=== PATIENT | male | born 1935 | race Caucasian/White ===

== ENCOUNTER → 2016-04-22 | Outpatient (CLI) | payer MEDICARE, OTHER ==
[~2016-04-22] MED LIST: ALBU0.08 NEB; ALBUAER3 INH; ALPR.25 PO; ATOR1TAB18 PO; AZIT500T2 PO; DILT-64 PO; DOCU1CAP39 PO; FERR1TAB36 PO; HYDR-3133 PO; HYDR50TA94 PO; INFLINJ IM; LEVO100T5 PO; LISI10TA3 PO; METF850T PO; NEBUKIT5; NIAC500 PO; NIAC500T18 PO; NITR0.4S SL; OMEP40CA2 PO; PAXI10TA2 PO; TRAM50TA PO; XARE20TA PO; ZOLO100T PO; ZOLO50TA PO
[2016-04-22 13:22] LABS: HDL CHOLESTEROL 47.5 MG/DL (40.0-60.0)
== END ==
LOC: PLAB 09:57
PROVIDERS: ATTEND Family Medicine
DX: E78.5 Hyperlipidemia, unspecified (principal)
CPT/HCPCS: 36415; 80061

== ENCOUNTER 2017-07-08 17:47 | Inpatient (IN) | payer MEDICARE, OTHER ==
[~2017-07-08] VITALS: Ht 167.6 cm; Wt 72.2 kg
[~2017-07-08 17:47] MED LIST changes: -ALPR.25 PO; +ASPI-516 CHEW; -ATOR1TAB18 PO; +ATOR80TA45 PO; -AZIT500T2 PO; -DILT-64 PO; +DILT240C44 PO; -DOCU1CAP39 PO; -FERR1TAB36 PO; +FERR325T18 PO; -HYDR50TA94 PO; -NIAC500T18 PO; -PAXI10TA2 PO; +PAXI10TA8 PO; -ZOLO100T PO; -ZOLO50TA PO
[2017-07-08 18:46] VITALS: BP 195/87; PULSE 79; RESP 18; TEMP 97.6; O2SAT 97
[2017-07-08 19:15] VITALS: BP_SYST 123; BP_SYST 175; BP_DIAS 80; BP_DIAS 85; PULSE 75; PULSE 78; RESP 20; O2SAT 100; O2SAT 97
--- NOTE | 2017-07-08 19:23 | PD ---
HPI Chief Complaint: Altered Mental Status Time Seen by Provider: 19:05 Travel History International Travel<30 days: No Contact w/Intl Traveler<30days: No Traveled to known affect area: No History of Present Illness HPI The patient is a 81-year-old male who presents to the emergency department with his daughter for altered mental status. The patient's symptoms started last weekend, they noticed on Thursday the patient had one episode of urinary incontinence. They stated the patient's mental status started to fluctuate earlier today, he has been making more jokes than normal and appears to have visual hallucinations. He was telling his daughter that there was a boy that was hiding in a cabinet within the house, apparently he threatened to call the police if the boy did not leave. The patient does have a history of coronary artery disease, previous CABG, but no history of dementia. The patient is currently taking Xarelto for history of atrial fibrillation. They deny any visible trauma to the patient's head. The patient is asymptomatic and denies any current complaints. However, the daughter and the daughter's girlfriend states that the patient has had a change in mental status today. The patient's primary physician is Dr. Fan. The patient's tool technician is Dr. Das. [facility] Past Medical History Asthma: No Anxiety: Yes Cancer: Yes (ESOPHAGEAL 6 YEARS AGO) Cardiovascular Problems: Yes (QUAD BYPASSL; [place]) Chemotherapy: Yes (PAST) COPD: No Coronary Artery Disease: Yes Diabetes: Yes Diminished Hearing: Yes (BILAT HEARING AIDS) GERD: Yes Hypertension: Yes Psychiatric: No Respiratory: Yes (Laryngeal cancer) Radiation Therapy: Yes (2003) Past Surgical History Appendectomy: Yes Cardiac Surgery: Yes (Quadruple bypass) Coronary Artery Bypass Graft: Yes (4 VESSEL BYPASS 1997) Social History Alcohol Use: No Tobacco Use: Yes ( 1 PPD) Substance Use: No Allergies-Medications (Allergen,Severity, Reaction): Coded Allergies: No Known Allergies (Verified Adverse Reaction, Unknown, 07/08/17) Reported Meds & Prescriptions Reported Meds & Active Scripts Active Hydroxyzine HCl 25 Mg Tab 25 Mg PO HS Niaspan (Niacin) 500 Mg Tab 1,500 Mg PO HS Xarelto (Rivaroxaban) 20 Mg Tab 1 Mg PO DAILY Tramadol (Tramadol HCl) 50 Mg Tab 50 Mg PO Q4H PRN Levothyroxine (Levothyroxine Sodium) 100 Mcg Tab 100 Mcg PO DAILY Lisinopril 10 Mg Tab 10 Mg PO DAILY Metformin (Metformin HCl) 850 Mg Tab 850 Mg PO DAILY With a meal Omeprazole 40 Mg Cap 40 Mg PO DAILY Atorvastatin (Atorvastatin Calcium) 80 Mg Tab 1 Mg PO HS Paxil (Paroxetine HCl) 10 Mg Tab 10 Mg PO DAILY Diltiazem CD 24 HR 240 Mg Caper 240 Mg PO DAILY Nitrostat SL (Nitroglycerin) 0.4 Mg Subl 0.4 Mg SL DIRECTED PRN Reported Allergy (Loratadine) 10 Mg Tab 10 Mg PO DAILY Isosorbide Mononitrate ER (Isosorbide Mononitrate) 30 Mg Benja 30 Mg PO DAILY Review of Systems Except as stated in HPI: all other systems reviewed are Neg General / Constitutional: No: Fever Cardiovascular: No: Chest Pain or Discomfort Respiratory: No: Shortness of Breath Gastrointestinal: No: Nausea, Vomiting, Abdominal Pain Genitourinary: Positive: Incontinence, No: Dysuria Neurologic: Positive: Change in Mentation, No: Slurred Speech Physical Exam Narrative GENERAL: Awake, alert, pleasant 81-year-old male who appears his stated age and is in no acute respiratory distress. SKIN: Focused skin assessment warm/dry. HEAD: Atraumatic. Normocephalic. EYES: Pupils equal and round. No scleral icterus. No injection or drainage. ENT: No nasal bleeding or discharge. Slightly dry mucous membranes. NECK: Trachea midline. No JVD. CARDIOVASCULAR: Irregularly irregular. Heart rate in the 80s. Well-healed sternal scar. RESPIRATORY: No accessory muscle use. Clear to auscultation. Breath sounds equal bilaterally. GASTROINTESTINAL: Abdomen soft, non-tender, nondistended. Well-healed midline scar. MUSCULOSKELETAL: No obvious deformities. No clubbing. No cyanosis. No edema. NEUROLOGICAL: Awake and alert. No obvious cranial nerve deficits. Motor grossly within normal limits. Normal speech. Patient is oriented to month, did have difficulty with the year. He is oriented to name and daughter. Nonfocal. No drift of the upper or lower extremities. Follows simple commands. PSYCHIATRIC: Appropriate mood and affect; insight and judgment normal. Pleasant and joking in conversation. Data Data Last Documented VS Vital Signs Date Time Temp Pulse Resp B/P (MAP) Pulse Ox O2 Delivery O2 Flow Rate FiO2 07/08/17 19:52 75 20 97 07/08/17 19:15 123/85 (98) 07/08/17 18:46 97.6 Orders Orders Electrocardiogram (07/08/17 19:18) Complete Blood Count With Diff (07/08/17 19:18) Comprehensive Metabolic Panel (07/08/17 19:18) Creatine Kinase (Cpk) (07/08/17 19:18) Thyroid Stimulating Hormone (07/08/17 19:18) Urinalysis - C+S If Indicated (07/08/17 19:18) Ct Brain W/O Iv Contrast(Rout) (07/08/17 19:18) Blood Glucose (07/08/17:18) Ecg Monitoring (07/08/17:18) Iv Access Insert/Monitor (07/08/17:18) Oximetry (07/08/17 19:18) Sodium Chloride 0.9% Flush (Ns Flush) (07/08/17 19:30) Sodium Chlor 0.9% 250 Ml Inj (Ns 250 Ml (07/08/17 19:30) Risperidone (Risperdal) (07/08/17 21:30) Admit Order (Ed Use Only) (07/08/17 21:32) Labs Laboratory Tests Test 07/08/17 19:20 White Blood Count 11.2 TH/MM3 Red Blood Count 4.44 MIL/MM3 Hemoglobin 13.4 GM/DL Hematocrit 38.9 % Mean Corpuscular Volume 87.6 FL Mean Corpuscular Hemoglobin 30.1 PG Mean Corpuscular Hemoglobin Concent 34.3 % Red Cell Distribution Width 13.6 % Platelet Count 314 TH/MM3 Mean Platelet Volume 6.9 FL Neutrophils (%) (Auto) 74.6 % Lymphocytes (%) (Auto) 15.0 % Monocytes (%) (Auto) 7.7 % Eosinophils (%) (Auto) 1.4 % Basophils (%) (Auto) 1.3 % Neutrophils # (Auto) 8.3 TH/MM3 Lymphocytes # (Auto) 1.7 TH/MM3 Monocytes # (Auto) 0.9 TH/MM3 Eosinophils # (Auto) 0.2 TH/MM3 Basophils # (Auto) 0.1 TH/MM3 CBC Comment DIFF FINAL Differential Comment Urine Color YELLOW Urine Turbidity CLEAR Urine pH 5.5 Urine Specific [place] 1.020 Urine Protein NEG mg/dL Urine Glucose (UA) 100 mg/dL Urine Ketones NEG mg/dL Urine Occult Blood TRACE Urine Nitrite NEG Urine Bilirubin NEG Urine Urobilinogen 0.2 MG/DL Urine Leukocyte Esterase NEG Urine RBC 0-3 /hpf Urine WBC 0-2 /hpf Urine Squamous Epithelial Cells 0-5 /hpf Urine Bacteria NONE /hpf Microscopic Urinalysis Comment CULT NOT INDICATED Blood Urea Nitrogen 10 MG/DL Creatinine 1.10 MG/DL Random Glucose 145 MG/DL Total Protein 8.1 GM/DL Albumin 3.9 GM/DL Calcium Level 8.7 MG/DL Alkaline Phosphatase 107 U/L Aspartate Amino Transf (AST/SGOT) 14 U/L Alanine Aminotransferase (ALT/SGPT) 14 U/L Total Bilirubin 0.3 MG/DL Sodium Level 133 MEQ/L Potassium Level 3.9 MEQ/L Chloride Level 100 MEQ/L Carbon Dioxide Level 25.4 MEQ/L Anion Gap 8 MEQ/L Estimat Glomerular Filtration Rate 64 ML/MIN Total Creatine Kinase 82 U/L Thyroid Stimulating Hormone 3rd Gen 0.694 uIU/ML MDM Medical Decision Making Medical Screen Exam Complete: Yes Emergency Medical Condition: Yes Medical Record Reviewed: Yes Interpretation(s) EKG reveals normal sinus rhythm with a rate of 76. Right bundle branch block. Nonspecific T-wave changes. Laboratory Tests Test 07/08/17 19:20 White Blood Count 11.2 TH/MM3 Red Blood Count 4.44 MIL/MM3 Hemoglobin 13.4 GM/DL Hematocrit 38.9 % Mean Corpuscular Volume 87.6 FL Mean Corpuscular Hemoglobin 30.1 PG Mean Corpuscular Hemoglobin Concent 34.3 % Red Cell Distribution Width 13.6 % Platelet Count 314 TH/MM3 Mean Platelet Volume 6.9 FL Neutrophils (%) (Auto) 74.6 % Lymphocytes (%) (Auto) 15.0 % Monocytes (%) (Auto) 7.7 % Eosinophils (%) (Auto) 1.4 % Basophils (%) (Auto) 1.3 % Neutrophils # (Auto) 8.3 TH/MM3 Lymphocytes # (Auto) 1.7 TH/MM3 Monocytes # (Auto) 0.9 TH/MM3 Eosinophils # (Auto) 0.2 TH/MM3 Basophils # (Auto) 0.1 TH/MM3 CBC Comment DIFF FINAL Differential Comment Urine Color YELLOW Urine Turbidity CLEAR Urine pH 5.5 Urine Specific [place] 1.020 Urine Protein NEG mg/dL Urine Glucose (UA) 100 mg/dL Urine Ketones NEG mg/dL Urine Occult Blood TRACE Urine Nitrite NEG Urine Bilirubin NEG Urine Urobilinogen 0.2 MG/DL Urine Leukocyte Esterase NEG Urine RBC 0-3 /hpf Urine WBC 0-2 /hpf Urine Squamous Epithelial Cells 0-5 /hpf Urine Bacteria NONE /hpf Microscopic Urinalysis Comment CULT NOT INDICATED Blood Urea Nitrogen 10 MG/DL Creatinine 1.10 MG/DL Random Glucose 145 MG/DL Total Protein 8.1 GM/DL Albumin 3.9 GM/DL Calcium Level 8.7 MG/DL Alkaline Phosphatase 107 U/L Aspartate Amino Transf (AST/SGOT) 14 U/L Alanine Aminotransferase (ALT/SGPT) 14 U/L Total Bilirubin 0.3 MG/DL Sodium Level 133 MEQ/L Potassium Level 3.9 MEQ/L Chloride Level 100 MEQ/L Carbon Dioxide Level 25.4 MEQ/L Anion Gap 8 MEQ/L Estimat Glomerular Filtration Rate 64 ML/MIN Total Creatine Kinase 82 U/L Thyroid Stimulating Hormone 3rd Gen 0.694 uIU/ML Last Impressions Head CT 07/08/171917 Signed Impressions: Service Date/Time: Saturday, July 08, 2017 20:18 - CONCLUSION: 1. Possible subacute or old small left frontal lobe infarct. White matter ischemic changes. Remote lacunar infarct right cerebellum. Lowell Parrish MD Differential Diagnosis Differential diagnosis includes delirium, UTI, hyponatremia, dehydration, subdural hemorrhage, CVA, TIA, pneumonia, medication side effect, normal pressure hydrocephalus. Narrative Course IV was established, labs are drawn and sent, and the patient was placed on cardiac telemetry monitoring and continuous pulse oximetry monitoring. EKG was ordered and interpreted. CT of the brain was obtained to evaluate for possible subdural hemorrhage. UA was sent to lab. Accu-Chek at bedside was in the 140s. The patient's UA is unremarkable. Sodium level is normal. TSH is normal. CT of the brain reveals subacute frontal lobe stroke, may explain the patient's recent behavior changes and possible hallucinations/delusions. I had a discussion with the family at bedside, the patient will be admitted to the on- call medical service. The patient will be provided Risperdal as he is slightly agitated in the emergency department. Patient may benefit from neurology evaluation. Physician Communication Physician Communication The on-call medical service was paged for admission. I discussed the patient with Dr. [place] who agrees with admission. Diagnosis Primary Impression: CVA (cerebral vascular accident) Qualified Codes: I63.9 - Cerebral infarction, unspecified Condition: Stable Sanjeev Branch MD Jul 08, 2017 19:23
[2017-07-08] MEDS ORDERED: SODIUM CHLOR 0.9% 250 ML INJ 250 ML IV ONE (19:30)
[2017-07-08] MEDS ORDERED: SODIUM CHLORIDE 0.9% FLUSH 10 ML FLUSH IV FLUSH PRN (19:30)
[2017-07-08 19:36] LABS: BILIRUBIN, URINE NEG (NEG); BLOOD, URINE TRACE (NEG); GLUCOSE,URINE 100 mg/dL (NEG); KETONE, URINE NEG (NEG); NITRITE,URINE NEG (NEG); PH, URINE 5.5 (5.0-8.5); URINE COLOR YELLOW (YELLW/STRAW); URINE LEUKOCYTE ESTERASE NEG (NEG)
[2017-07-08 19:38] LABS: AUTOMATED NEUTROPHIL # 8.3 TH/MM3 (1.8-7.7); BASOPHIL # 0.1 TH/MM3 (0-0.2); BASOPHIL % 1.3 % (0.0-2.0); EOSINOPHIL # 0.2 TH/MM3 (0-0.4); EOSINOPHIL % 1.4 % (0.0-4.0); HEMATOCRIT 38.9 % (39.0-51.0); HEMOGLOBIN 13.4 GM/DL (13.0-17.0); LYMPHOCYTE # 1.7 TH/MM3 (1.0-4.8); MEAN CELL VOLUME 87.6 FL (80.0-100.0); MEAN CORPUSCULAR HEMOGLOBIN 30.1 PG (27.0-34.0); MEAN CORPUSCULAR HGB CONC 34.3 % (32.0-36.0); MEAN PLATELET VOLUME 6.9 FL (7.0-11.0); MONO % 7.7 % (0.0-8.0); MONOCYTE # 0.9 TH/MM3 (0-0.9); NEUT % 74.6 % (16.0-70.0); PLATELET COUNT 314 TH/MM3 (150-450); RED BLOOD COUNT 4.44 MIL/MM3 (4.50-5.90); RED CELL DISTRIBUTION WIDTH 13.6 % (11.6-17.2); WHITE BLOOD COUNT 11.2 TH/MM3 (4.0-11.0)
[2017-07-08 19:42] LABS: RBC, URINE 0-3 /hpf (0-3); SQUAMOUS EPITHELIAL CELL URINE 0-5 /hpf (0-5); WBC, URINE 0-2 /hpf (0-5)
[2017-07-08 19:46] LABS: CHLORIDE 100 MEQ/L (98-107); SODIUM (NA) 133 MEQ/L (136-145)
[2017-07-08 19:49] LABS: CALCIUM 8.7 MG/DL (8.5-10.1)
[2017-07-08 19:50] LABS: ALBUMIN 3.9 GM/DL (3.4-5.0); BICARBONATE 25.4 MEQ/L (21.0-32.0); BLOOD UREA NITROGEN 10 MG/DL (7-18); GLUCOSE,RANDOM 145 MG/DL (74-106)
[2017-07-08 19:53] LABS: ALT (GPT) 14 U/L (12-78); AST (GOT) 14 U/L (15-37); GLOMERULAR FILTRATION RATE 64 ML/MIN (>89)
[2017-07-08 19:54] LABS: TOTAL BILIRUBIN ADULT 0.3 MG/DL (0.2-1.0); TOTAL PROTEIN 8.1 GM/DL (6.4-8.2)
[2017-07-08 19:56] LABS: ALKALINE PHOSPHATASE 107 U/L (45-117)
[2017-07-08] MEDS ORDERED: ISOS30TA3 PO (20:10)
[2017-07-08] MEDS ORDERED: LORA-520 PO (20:10)
--- NOTE | 2017-07-08 21:02 | RADRPT ---
EXAM DATE/TIME: 07/08/2017 20:18 [facility] COMPARISON: No previous studies available for comparison. INDICATIONS : Altered mental status. RADIATION DOSE: 63.39 CTDIvol (mGy) MEDICAL HISTORY : Hypertension. Diabetes mellitus type 2. SURGICAL HISTORY : None. ENCOUNTER: Initial ACUITY: 1 day PAIN SCALE: 0/10 LOCATION: cranial TECHNIQUE: Multiple contiguous axial images were obtained of the head. Using automated exposure control and adj ustment of the mA and/or kV according to patient size, radiation dose was kept as low as reasonably a chievable to obtain optimal diagnostic quality images. DICOM format image data is available electro nically for review and comparison. FINDINGS: There is a focal area of low-attenuation in left frontal lobe measuring about 2 cm in diameter that m ay represent a small subacute or older infarct. Mild white ischemic changes. Remote lacunar infarct r ight inferior cerebellum. No hemorrhage and no mass effect or shift. No hydrocephalus. CONCLUSION: 1. Possible subacute or old small left frontal lobe infarct. White matter ischemic changes. Remote la cunar infarct right cerebellum. Lowell Parrish MD on July 08, 2017 at 20:58 Board Certified Radiologist. This report was verified electronically.
[2017-07-08] MEDS ORDERED: risperiDONE 1 MG TAB PO ONE (21:30)
--- NOTE | 2017-07-08 21:41 | EKG ---
Date Performed: 07/08/2017 Time Performed: 19:33:09 PTAGE: 81 years EKG: Sinus rhythm RIGHT BUNDLE BRANCH BLOCK LEFT ANTERIOR FASCICULAR BLOCK SEPTAL MYOCARDIAL INFARCTION Nonspecific T wave changes Compared to prior electrocardiogram, Nonspecific T wave changes are less marked PREVIOUS TRACING : 04/11/2016 12.55 DOCTOR: Gm Burton Interpretating Date/Time 07/08/2017 21:40:39
[2017-07-08] MEDS ORDERED: GLUCAGON 1 MG/ML VIAL OTHER PRN (21:45)
[2017-07-08] MEDS ORDERED: ASPIRIN 81 MG CHEW TAB CHEW ONE (21:45)
[2017-07-08] MEDS ORDERED: DEXTROSE 50% IN WATER 50 ML VIAL(D50) IV PUSH PRN (21:45)
[2017-07-08 22:00] VITALS: BP 132/67; PULSE 75; RESP 20; O2SAT 98
[2017-07-08 22:05] VITALS: O2SAT 97
[2017-07-08 23:28] VITALS: BP 136/66
[2017-07-08 23:48] VITALS: PULSE 67
[2017-07-09] VITALS (9 sets, daily range): BP systolic 116–186; BP diastolic 70–103; PULSE 72–108; RESP 16–24; TEMP 95.9–96.5; O2SAT 94–98
[2017-07-09] MEDS: INSULIN ASPART SUPPLEMENTAL SCALE SQ SCH ×4 (08:54→20:29)
[2017-07-09] MEDS: SODIUM CHLORIDE 0.9% FLUSH 10 ML FLUSH IV FLUSH SCH ×2 (08:54→20:16)
--- NOTE | 2017-07-09 09:30 | HHI.HP ---
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 The patient's symptoms started last weekend, they noticed on Thursday the patient had one episode of urinary incontinence. 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 He was telling his daughter that there was a boy that was hiding in a cabinet within the house, apparently he threatened to call the police if the boy did not leave. The patient does have a history of coronary artery disease, previous CABG, but no history of dementia. The patient is currently taking Xarelto for history of atrial fibrillation. They deny any visible trauma to the patient's head. The patient is asymptomatic and denies any current complaints. However, the daughter states that the patient has had a change in mental status today and is gettign progressively worse. The patient 's primary physician is Dr. Fan. The patient's building economist is Dr. Das. The daughter also says that Dr Das had ordered US and CTA carotids recently. Patient has significant bilateral stenosis of the carotids. Also noted with elevated trops Dr Das consulted will eval patient Patient denies chest apin or sob. He is satting well on room air. No n/v/d/c. Review of Systems Except as stated in HPI: all other systems reviewed are Neg Past Family Social History Past Medical History Laryngeal cancer status post chemotherapy and radiation, 2001 Diabetes Hypertension Hyperlipidemia Depression GERD CAD Past Surgical History Appendectomy CABG, quadruple bypass in 1996 Reported Medications Reported Meds & Active Scripts Active Hydroxyzine HCl 25 Mg Tab 25 Mg PO HS Niaspan (Niacin) 500 Mg Tab 1,500 Mg PO HS Xarelto (Rivaroxaban) 20 Mg Tab 1 Mg PO DAILY Tramadol (Tramadol HCl) 50 Mg Tab 50 Mg PO Q4H PRN Levothyroxine (Levothyroxine Sodium) 100 Mcg Tab 100 Mcg PO DAILY Lisinopril 10 Mg Tab 10 Mg PO DAILY Metformin (Metformin HCl) 850 Mg Tab 850 Mg PO DAILY With a meal Omeprazole 40 Mg Cap 40 Mg PO DAILY Atorvastatin (Atorvastatin Calcium) 80 Mg Tab 1 Mg PO HS Paxil (Paroxetine HCl) 10 Mg Tab 10 Mg PO DAILY Diltiazem CD 24 HR 240 Mg Caper 240 Mg PO DAILY Nitrostat SL (Nitroglycerin) 0.4 Mg Subl 0.4 Mg SL DIRECTED PRN Reported Allergy (Loratadine) 10 Mg Tab 10 Mg PO DAILY Isosorbide Mononitrate ER (Isosorbide Mononitrate) 30 Mg Benja 30 Mg PO DAILY Allergies: Coded Allergies: No Known Allergies (Verified Adverse Reaction, Unknown, 07/08/17) Family History Father - from [place] age 89 Mother - in her 60s from a stroke Brother - from "old age", unknown medical problems Daughter - healthy Social History Lives in [place] with his . 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 Denies EtOH use Tobacco use - 1 PPD (started age 12) Denies Illicit Drug use Physical Exam Vital Signs Vital Signs Date Time Temp Pulse Resp B/P (MAP) Pulse Ox O2 Delivery O2 Flow Rate FiO2 07/09/17 08:32 96 21 07/09/17 08:00 96.0 100 24 186/92 (123) 96 07/09/17 04:00 95.9 80 20 162/86 (111) 94 07/09/17 00:30 96.0 72 20 179/84 (115) 98 07/08/17 23:48 67 07/08/17 23:28 75 20 136/66 (89) 98 Nasal Cannula 2.00 07/08/17 22:05 97 21 07/08/17 22:00 98 2.00 07/08/17 22:00 75 20 132/67 (88) 98 Room Air 07/08/17 19:52 75 20 97 07/08/17 19:15 75 20 123/85 (98) 97 07/08/17 19:15 78 20 175/80 (111) 100 07/08/17 18:46 97.6 79 18 195/87 (123) 97 Physical Exam GENERAL: This is a well-nourished, well-developed patient, in no apparent distress. SKIN: No rashes, ecchymoses or lesions. Cool and dry. HEAD: Atraumatic. Normocephalic. No temporal or scalp tenderness. EYES: Pupils equal round and reactive. Extraocular motions intact. No scleral icterus. No injection or drainage. ENT: Nose without bleeding, purulent drainage or septal hematoma. Throat without erythema, tonsillar hypertrophy or exudate. Uvula midline. Airway patent. NECK: Trachea midline. No JVD or lymphadenopathy. Supple, nontender, no meningeal signs. CARDIOVASCULAR: Regular rate and rhythm without murmurs, gallops, or rubs. RESPIRATORY: Clear to auscultation. Breath sounds equal bilaterally. No wheezes , rales, or rhonchi. GASTROINTESTINAL: Abdomen soft, non-tender, nondistended. No hepato-splenomegaly , or palpable masses. No guarding. MUSCULOSKELETAL: Extremities without clubbing, cyanosis, or edema. No joint tenderness, effusion, or edema noted. No calf tenderness. Negative Homans sign bilaterally. NEUROLOGICAL: Awake and alert. Cranial nerves II through XII intact. Motor and sensory grossly within normal limits. Five out of 5 muscle strength in all muscle groups. Normal speech. Laboratory Laboratory Tests Test 07/08/17 19:20 07/09/17 05:50 White Blood Count 11.2 Red Blood Count 4.44 Hemoglobin 13.4 Hematocrit 38.9 Mean Corpuscular Volume 87.6 Mean Corpuscular Hemoglobin 30.1 Mean Corpuscular Hemoglobin Concent 34.3 Red Cell Distribution Width 13.6 Platelet Count 314 Mean Platelet Volume 6.9 Neutrophils (%) (Auto) 74.6 Lymphocytes (%) (Auto) 15.0 Monocytes (%) (Auto) 7.7 Eosinophils (%) (Auto) 1.4 Basophils (%) (Auto) 1.3 Neutrophils # (Auto) 8.3 Lymphocytes # (Auto) 1.7 Monocytes # (Auto) 0.9 Eosinophils # (Auto) 0.2 Basophils # (Auto) 0.1 CBC Comment DIFF FINAL Differential Comment Urine Color YELLOW Urine Turbidity CLEAR Urine pH 5.5 Urine Specific [place] 1.020 Urine Protein NEG Urine Glucose (UA) 100 Urine Ketones NEG Urine Occult Blood TRACE Urine Nitrite NEG Urine Bilirubin NEG Urine Urobilinogen 0.2 Urine Leukocyte Esterase NEG Urine RBC 0-3 Urine WBC 0-2 Urine Squamous Epithelial Cells 0-5 Urine Bacteria NONE Microscopic Urinalysis Comment CULT NOT INDICATED Blood Urea Nitrogen 10 Creatinine 1.10 Random Glucose 145 Total Protein 8.1 Albumin 3.9 Calcium Level 8.7 Alkaline Phosphatase 107 Aspartate Amino Transf (AST/SGOT) 14 Alanine Aminotransferase (ALT/SGPT) 14 Total Bilirubin 0.3 Sodium Level 133 Potassium Level 3.9 Chloride Level 100 Carbon Dioxide Level 25.4 Anion Gap 8 Estimat Glomerular Filtration Rate 64 Total Creatine Kinase 82 Thyroid Stimulating Hormone 3rd Gen 0.694 Result Diagram: 07/08/17191907/08/171919 Imaging Last Impressions Head CT 07/08/171917 Signed Impressions: Service Date/Time: Saturday, July 08, 2017 20:18 - CONCLUSION: 1. Possible subacute or old small left frontal lobe infarct. White matter ischemic changes. Remote lacunar infarct right cerebellum. Lowell Parrish MD Caprini VTE Risk Assessment Caprini VTE Risk Assessment: Mod/High Risk (score >= 2) Caprini Risk Assessment Model Point Value = 1 Point Value = 2 Point Value = 3 Point Value = 5 Age 41-60 Minor surgery BMI > 25 kg/m2 Swollen legs Varicose veins or History of unexplained or recurrent spontaneous Oral contraceptives or hormone replacement Sepsis (< 1 month) Serious lung disease, including pneumonia (< 1 month) Abnormal pulmonary function Acute myocardial infarction Congestive heart failure (< 1 month) History of inflammatory bowel disease Medical patient at bed rest Age 61-74 Arthroscopic surgery Major open surgery (> 45 min) Laparoscopic surgery (> 45 min) Malignancy Confined to bed (> 72 hours) Immobilizing plaster cast Central venous access Age >= 75 History of VTE Family history of VTE Factor V Leiden Prothrombin [id number] Lupus anticoagulant Anticardiolipin antibodies Elevated serum homocysteine Heparin-induced thrombocytopenia Other congenital or acquired thrombophilia Stroke (< 1 month) Elective arthroplasty Hip, pelvis, or leg fracture Acute spinal cord injury (< 1 month) Prophylaxis Regimen Total Risk Factor Score Risk Level Prophylaxis Regimen 0-1 Low Early ambulation 2 Moderate Order ONE of the following: *Sequential Compression Device (SCD) *Heparin 5000 units SQ BID 3-4 Higher Order ONE of the following medications: *Heparin 5000 units SQ TID *Enoxaparin/Lovenox 40 mg SQ daily (WT < 150 kg, CrCl > 30 mL/min) *Enoxaparin/Lovenox 30 mg SQ daily (WT < 150 kg, CrCl > 10-29 mL/min) *Enoxaparin/Lovenox 30 mg SQ BID (WT < 150 kg, CrCl > 30 mL/min) AND/OR *Sequential Compression Device (SCD) 5 or more Highest Order ONE of the following medications: *Heparin 5000 units SQ TID (Preferred with Epidurals) *Enoxaparin/Lovenox 40 mg SQ daily (WT < 150 kg, CrCl > 30 mL/min) *Enoxaparin/Lovenox 30 mg SQ daily (WT < 150 kg, CrCl > 10-29 mL/min) *Enoxaparin/Lovenox 30 mg SQ BID (WT < 150 kg, CrCl > 30 mL/min) AND *Sequential Compression Device (SCD) Assessment and Plan Assessment and Plan Poss subacute left frontal infarction with behavioral changes Bilateral carotid stenosis Visual hallucinations/psychosis CT reports from 06/23/17 from [facility] reviewed: Symmetric critical stenosis in the mid common carotid artery bilaterally 80-90% with flow- limiting. The right stenosis is associated with significant ulceration. None ostial stenosis of the right internal carotid artery 70-80%. Occlusion of the right vertebral. Neurochecks Consult neurology. Seen by Dr Herr , check MRI, EEG, additional work up per neuro . also thinks is sleep deprivation, plan for sleep chart tonight . Family honey is requesting for 2nd opinion for neurology. Dr Herr notified. Place consult neuro for 2nd opinion Elevated troponin 0.77 . Trend troponin , EKG. Consult Dr Das his cardio for evaluation Consult vascular surgeon for evaluation Monitor vital signs Keep normoglycemic normotensive Start seroquel. Consult psychiatry Elevated troponin 0/6--> 1.55 trending up . Patient denies any chest pain. Discussed with Dr Das his cardiology Dr Will evaluate patient. Family decided for conservative management. Add metoprolol 12.4 mg po bid Chronic a-fib Currently rate controlled Diltiazem 120mg ER daily and Xarelto 20mg daily at home. Given current recommendation by cardiology for Metoprolol 25mg TID and current heart rate, will hold home diltiazem pending cardiology's recommendations. On Xarelto HTN (hypertension) Currently 159/77. 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 Review of records show 100mg was most recently prescribed. Will prescribe this amount and could increase to 150 if it is revealed that this is the patient's home dose. HLD (hyperlipidemia) Continue AUDIO/VIDEO TECHNICIAN atorvastatin 80mg daily DM (diabetes mellitus) Hold metformin. Accuchecks, monitor BS. Low dose ISS. Tobacco dependence, continuous Counselled regarding cessation. Hypothyroidism Continue AUDIO/VIDEO TECHNICIAN levothyroxine 100 g daily GERD History of GERD could be contributing to patient's discomfort. Protonix 40mg daily DVT ppx on xarelto Discussed Condition With patient, family at bedside, nurse, Dr Herr neurology, Dr Das cardiology Mary Ross MD Jul 09, 2017 09:30
[2017-07-09 10:56] LABS: CHOLESTEROL 267 MG/DL (120-200); TRIGLYCERIDES 185 MG/DL (42-150)
[2017-07-09 10:58] LABS: CHOLESTEROL/ HDL RATIO 6.79 RATIO; HDL CHOLESTEROL 39.3 MG/DL (40.0-60.0); LDL CHOLESTEROL 191 MG/DL (0-99)
--- NOTE | 2017-07-09 11:30 | MB ---
cc: Rangel Herr MD DATE: 07/09/2017 HISTORY OF PRESENT ILLNESS: Fer Beavers has been seen by Dr. Lind back in 2003 where he had a loss of conscious at home. He was confused and lethargic, found to be anemic. He has a history of locally invasive advance laryngeal carcinoma treated with XRT and chemotherapy with cisplatin, history of CAD, depression, hypertension, hypercholesterolemia, CABG, PEG tube placement, [id number], detached retina right eye, cataract surgery. He was on Wellbutrin at that time. MRI of the brain was ordered. The patient has done fairly well. He is fairly independent. He lives with his daughter. He does not drive due to eye sight. He does not do his bills because he has his daughter do them, but he can go to the store and pick out his own items, cook for himself, do his own laundry, cook for himself and others at home. He is independent. He tends to lean back a bit. He was in [place] and had an injury there which affected his back some according to his daughter. Nevertheless, on Thursday, which is about 3 days ago, he was found in the corner of the dining room, somewhat confused and had some urinary incontinence, which he does have from time to time. When he got back from [place], his daughter says that he used to pee in the drawer occasionally. Nevertheless, he seemed to get more confused over the course of the week and then yesterday he said it was a small boy that he saw and so she brought him in. She has not known if he has ever had a stroke, although his CAT scan shows an old left frontal infarct and several small old right cerebellar infarcts. There has been no definite fever. He denies any headache. As for his sleep, he sometimes will go to bed from 8-11, get up and have a cup of coffee and be up a lot during the night, so he does not really have a good sleeping pattern. PAST MEDICAL HISTORY: Hypertension, borderline diabetes, hypercholesterolemia, [place], CABG, atrial fibrillation on Xarelto, hypothyroidism, throat cancer years ago. REVIEW OF SYSTEMS: His daughter denied any renal, hepatic or pulmonary disease, lupus ulcer, seizure or stroke. SOCIAL HISTORY: He is a smoker. He is not a drinker. He lives with his daughter. FAMILY HISTORY: Negative for cancer or seizure. Positive for stroke in his mother. ALLERGIES: NO KNOWN DRUG ALLERGIES. MEDICATIONS AT HOME: Hydroxyzine 25 at bedtime, niacin, Xarelto, tramadol, thyroid medicine, lisinopril, metformin, omeprazole, atorvastatin, Paxil, diltiazem, Nitrostat, loratadine, isosorbide. PHYSICAL EXAMINATION: VITAL SIGNS: Afebrile, 186/92, 24. I do not think he needs to be in the ICU. NECK: There were no carotid bruits. HEART: Regular rhythm. I did not detect a murmur. NEUROLOGIC: Pupils are equal. His visual clark appear full. Extraocular movements intact. Tongue was midline. Face is symmetric with normal sensation. There is no drift. He had normal strength in the upper and lower extremities bilaterally. DTRs trace throughout. Toes downgoing bilaterally. Pinprick is intact as well as vibratory sense. Gait, he is not ataxic. He seems to lean slightly to the right. LABORATORY DATA: CAT scan is noted, old left frontal and old several small right cerebellar infarcts. CBC shows a white count of 11, otherwise essentially normal. UA is negative. Coags PTT is slightly elevated. Basic metabolic profile: Sodium was 133. It was 132 in 03/2016. GFR is normal. Calcium normal. LFTs normal. CPK normal. Albumin normal. TSH normal. He had a normal B12 back in 2003. Folate was normal at that time. He got 1 mg of Risperdal yesterday at 2100 in the ER. IMPRESSION: History of stroke. He should be started back on his Xarelto today and has a history of atrial fibrillation. I suspect he probably has had drop off of his sleep pattern and has probably been up most of the night for several nights leading to his hallucinations with sleep deprivation. We will check sleep chart, keep him up during the day. I would like to check an MRI of the brain to make sure he has not had a small stroke, an EEG and some additional blood work. I will be following him with you in the hospital. I told his daughter, I thought the best thing if the MRI is negative is to get him back home as soon as possible, although she is interested in rehabilitation. She is not sure if she can handle him at home. I would hold off on any more sedatives for now and see how he sleeps tonight, keep him up all day long without a nap today. MRI when we saw him back in 2003 did not show a stroke. We will check carotid ultrasound on him here and also check a troponin on him. MD ESTELLA Torrez/HUGO , 10:52 AM , 11:29 AM
[2017-07-09] MEDS ORDERED: traMADol HCL 50 MG TAB PO PRN (12:15)
[2017-07-09] MEDS ORDERED: ENALAPRILAT 1.25 MG/ML VIAL IV PUSH PRN (12:30)
[2017-07-09 12:37] LABS: C-REACTIVE PROTEIN 0.9 MG/DL (0.00-0.30)
[2017-07-09 13:04] LABS: TROPONIN I 0.77 NG/ML (0.02-0.05)
[2017-07-09] MEDS ORDERED: PILL SPLITTER OTHER PRN (13:15)
[2017-07-09] MEDS ORDERED: NALOXONE HCL 0.4 MG/ML AMP IV PUSH PRN (13:30)
[2017-07-09] MEDS ORDERED: QUEtiapine FUMARATE 25 MG TAB PO ONE ×2 (13:30→21:00)
[2017-07-09] MEDS ORDERED: LISINOPRIL 10 MG TAB PO ONE (14:00)
[2017-07-09] MEDS ORDERED: DILTIAZEM-CD 120 MG CAP ER PO ONE (14:00)
--- NOTE | 2017-07-09 14:55 | ECHRPT ---
Indication: CVA/TIA CONCLUSIONS The left ventricular systolic function is severely reduced with an estimated ejection fraction in th e range of 20-25%. Moderately dilated left ventricle. Wall thickness is normal. There is global left ventricular dysfunction. Mitral annular calcification is present. Cannot rule out a bicuspid aortic valve or trileaflet valve with partially fused commissure. Diffuse calcification of the aortic valve. There is trace tricuspid valve regurgitation. Normal estimated pulmonary pressures. mild mr BP: 162 / 86 HR: 111 Rhythm: Sinus Technical Quality:Fair FINDINGS LEFT VENTRICLE The left ventricular systolic function is severely reduced with an estimated ejection fraction in th e range of 20-25%. Moderately dilated left ventricle. Wall thickness is normal. There is global left ventricular dysfunction. RIGHT VENTRICLE Normal right ventricular size and systolic function. LEFT ATRIUM The left atrial size is normal. RIGHT ATRIUM The right atrial size is normal. ATRIAL SEPTUM Normal atrial septal thickness without atrial level shunting by limited color doppler interrogation. AORTA The aortic root and proximal ascending aorta are normal in size on limited imaging. MITRAL VALVE Mitral annular calcification is present. AORTIC VALVE Cannot rule out a bicuspid aortic valve or trileaflet valve with partially fused commissure. Diffuse calcification of the aortic valve. TRICUSPID VALVE Structurally normal tricuspid valve. There is trace tricuspid valve regurgitation. Normal estimated pulmonary pressures. PULMONARY VALVE The pulmonary valve is not well visualized. VESSELS The inferior vena cava is normal in size. PERICARDIUM No pericardial effusion. Gerard Bonilla MD, FACC, [facility] [place] (Electronically Signed) Final Date:09 July 2017 14:54
[2017-07-09] MEDS ORDERED: HALOPERIDOL LACTATE 5 MG/ML AMP IM ONE (16:30)
[2017-07-09] MEDS ORDERED: HALOPERIDOL LACTATE 5 MG/ML AMP IM PRN (16:30)
--- NOTE | 2017-07-09 16:45 | MG ---
cc: Ryan Gonzalez MD REQUESTING PHYSICIAN: Dr. Herr FINDINGS: An EEG was obtained on this 81-year-old patient described as awake. The EEG shows beta rhythms intermixed with a lot of artifact. There is also some theta and delta rhythms. There is no paroxysmal or epileptiform features. No distinct lateralizing features. Photic stimulation was unremarkable. INTERPRETATION: Mildly abnormal EEG because of bilateral slowing suggesting bilateral abnormalities, either metabolic or structural but no epileptiform feature is present. Ryan Gonzalez MD OFC/SB , 04:33 PM , 04:44 PM
[2017-07-09] MEDS: LORazepam 2 MG/ML VIAL IV PUSH PRN (16:47)
[2017-07-09] MEDS: MORPHINE SULFATE 2 MG/ML SYRINGE IV PUSH PRN (16:52)
[2017-07-09 17:37] LABS: HEMOGLOBIN A1C 7.3 % (4.3-6.0)
[2017-07-09 18:00] LABS: FREE T4 1.33 NG/DL (0.76-1.46)
--- NOTE | 2017-07-09 18:09 | RADRPT ---
EXAM DATE/TIME: 07/09/2017 12:28 [place] COMPARISON: CT BRAIN W/O CONTRAST, July 08, 2017, 20:18. INDICATIONS : CVA. Confusion and delusions. MEDICAL HISTORY : Myocardial infarction. Throat cancer. SURGICAL HISTORY : Appendectomy. CABG Cataracts. ENCOUNTER: Initial ACUITY: 1 day PAIN SCORE: 0/10 LOCATION: Head. TECHNIQUE: Multiplanar, multisequence MRI of the brain was performed without contrast. FINDINGS: CEREBRUM: The ventricles are normal for age. No evidence of midline shift, mass lesion, hemorrhage or acute in farction. No extraaxial fluid collections are seen. The pituitary gland and suprasellar cistern are normal in configuration. WHITE MATTER: Moderate periventricular and subcortical white matter small vessel ischemic changes are noted bilater ally. POSTERIOR FOSSA: Old lacunar infarcts is noted within the right midbrain. Old lacunar infarcts are noted within the ri ght cerebellar hemisphere. The 4th ventricle is midline. The cerebellopontine angle is unremarkable. The cerebellar tonsils are normal in position. DIFFUSION IMAGING: No focal areas of restricted diffusion are seen. No evidence of acute infarction. EXTRACRANIAL: The visualized portions of the orbits and paranasal sinuses are unremarkable. CONCLUSION: 1. Moderate periventricular and subcortical white matter small vessel ischemic changes bilaterally. 2. 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 3. No acute infarct, acute hemorrhage, midline shift or extra axial fluid collections. Simon Sahu MD on July 09, 2017 at 18:03 Board Certified Radiologist. This report was verified electronically.
[2017-07-09] MEDS ORDERED: OLANZapine IM 10 MG VIAL IM PRN (18:15)
--- NOTE | 2017-07-09 18:25 | PD.PSY.CON ---
Provisional Diagnosis Admission Date Jul 09, 2017 at 09:51 [place] I. Unspecified psychosis, delirium History of Present Illness Service Psychiatry Consult Requested By Dr. Ross Reason for Consult Visual hallucinations Primary Care Physician Denzel Fan MD HPI Patient is a 81-year-old man, domiciled with daughter, daughter's partner and 2 grandchildren, with a prior psychiatric diagnoses of depression, no previous psychiatric admissions, no previous suicide attempt or self injury behavior, with a past medical history significant for history of laryngeal cancer, CAD, HTN, HLD, was brought into the emergency room due to altered mental status and behavioral changes and during admission was endorsing visual hallucinations along with periods of agitation which psychiatry was consulted for evaluation. Patient found lying in hospital bed with daughter and daughter' s significant other at bedside, patient recently given Ativan IV due to agitation and at this time is unable to participate in interview due to sedation. History also obtained from family. Daughter states that prior to his admission he was able to perform all his ADLs adequately but had noticed that prior to his admission he had stated he did not recall having slept and also reported having visual hallucinations of "a jaxon under the sink" along with recent episodes of urinary incontinence which family was concerned of a possible UTI causing his hallucinations. She reports to have been no recent changes in medications, but has having "total personality change", with difficulty recognizing family and continue visual hallucinations of a little boy in the room and earlier today seeing multiple people in the room. Patient had has had episodes of agitation where he was being physically aggressive toward family. Workup is being conducted by primary team as well as neurology. Past Family Social History Coded Allergies: No Known Allergies (Verified Adverse Reaction, Unknown, 07/08/17) Active Scripts Hydroxyzine HCl (Hydroxyzine HCl) 25 Mg Tab, 25 MG PO HS, #90 TAB 0 Refills Prov:Denzel Fan MD R3 05/17/17 Niacin ER (Niaspan) 500 Mg Tab, 1500 MG PO HS for Cholesterol Management, #90 TAB 4 Refills Prov:Denzel Fan MD R3 05/07/17 Rivaroxaban (Xarelto) 20 Mg Tab, 1 MG PO DAILY, #90 TAB 0 Refills Prov:Denzel Fan MD R3 05/07/17 Tramadol (Tramadol) 50 Mg Tab, 50 MG PO Q4H Y for PAIN, #120 TAB 0 Refills Prov:Denzel Fan MD R3 02/18/17 Levothyroxine (Levothyroxine) 100 Mcg Tab, 100 MCG PO DAILY for Thyroid, #90 TAB 4 Refills Prov:Denzel Fan MD R3 02/18/17 Lisinopril (Lisinopril) 10 Mg Tab, 10 MG PO DAILY, #90 TAB 4 Refills Prov:Denzel Fan MD R3 02/18/17 Metformin (Metformin) 850 Mg Tab, 850 MG PO DAILY for Blood Sugar Management, # 90 TAB 4 Refills With a meal Prov:Denzel Fan MD R3 02/18/17 Omeprazole (Omeprazole) 40 Mg Cap, 40 MG PO DAILY, #90 CAP 4 Refills Prov:Denzel Fan MD R3 02/18/17 Atorvastatin (Atorvastatin) 80 Mg Tab, 1 MG PO HS, #90 TAB 4 Refills Prov:Denzel Fan MD R3 02/18/17 Paroxetine (Paxil) 10 Mg Tab, 10 MG PO DAILY, #90 TAB 2 Refills Prov:Denzel Fan MD R3 02/18/17 Diltiazem CD 24 HR (Diltiazem CD 24 HR) 240 Mg Caper, 240 MG PO DAILY, #90 CAP 4 Refills Prov:Denzel Fan MD R3 02/18/17 Nitroglycerin SL (Nitrostat SL) 0.4 Mg Subl, 0.4 MG SL DIRECTED Y for CHEST PAIN, #100 TAB.SL 3 Refills Prov:Denzel Fan MD R3 02/18/17 Reported Medications Loratadine (Allergy) 10 Mg Tab, 10 MG PO DAILY 07/08/17 Isosorbide Mononitrate ER (Isosorbide Mononitrate ER) 30 Mg Benja, 30 MG PO DAILY for Prevent Chest Pain, #30 TAB 0 Refills 07/08/17 Discontinued Scripts Ferrous Sulfate (Ferrous Sulfate) 325 Mg (65 Mg Iron) Tablet, 325 MG PO DAILY for Nutritional Supplement, #90 TAB 0 Refills Prov:Denzel Fan MD R3 03/20/17 Aspirin (Aspirin) 81 Mg Chew, 81 MG CHEW DAILY, #30 TAB 0 Refills Prov:Candido Xiao MD R3 01/27/17 Nebulizer Kit/Tubing/Mout (Nebulizer Kit/Tubing/Mout) 1 Kit Kit, 1 KIT .ROUTE DIRECTED for Breathing Treatment, #1 KIT 0 Refills Prov:Estefania Argueta MD R3 04/28/16 Albuterol Neb (Albuterol Neb) 2.5 Mg/3 Ml Neb, 2.5 MG NEB QID NEB for Breathing Treatment, #60 NEBULE 0 Refills Prov:Estefania Argueta MD R3 04/28/16 Albuterol 8.5 GM Inh (Proair Hfa 8.5 GM Inh) 90 Mcg/Act Aer, 2 PUFF INH Q4-6H Y for SHORTNESS OF BREATH, #1 INHALER 3 Refills 108 mcg/actuation Prov:Estefania Argueta MD R3 04/28/16 Current Medications Medications (Trade) Dose Ordered Sig/Diaz Route Start Time Stop Time Status Last Admin (NS Flush) 2 ml BID IV FLUSH 07/09/17 09:00 07/09/17 08:54 (NS Flush) 2 ml UNSCH PRN IV FLUSH 07/08/17 21:45 (NovoLOG SUPPLEMENTAL SCALE) 1 ACHS SQ 07/09/17 08:00 07/09/17 08:54 (D50w (Vial) Inj) 50 ml UNSCH PRN IV PUSH 07/08/17 21:45 (Glucagon Inj) 1 mg UNSCH PRN OTHER 07/08/17 21:45 (Lipitor) 80 mg HS PO 07/09/17 21:00 (Cardizem Cd) 240 mg DAILY PO 07/10/17 09:00 (Atarax) 25 mg HS PO 07/09/17 21:00 (Imdur) 30 mg DAILY@0700 PO 07/10/17 07:00 (Synthroid) 100 mcg DAILY@0600 PO 07/10/17 06:00 (Prinivil) 10 mg DAILY PO 07/10/17 09:00 (Claritin) 10 mg DAILY PO 07/10/17 09:00 (Glucophage) 850 mg DAILY PO 07/10/17 09:00 (Slo-Niacin) 1,500 mg HS PO 07/09/17 21:00 (Xarelto) 20 mg DAILY PO 07/10/17 09:00 (Ultram) 50 mg Q4H PRN PO 07/09/17 12:15 (Protonix) 40 mg DAILY PO 07/10/17 09:00 (Paxil) 10 mg DAILY PO 07/10/17 09:00 (Vasotec Inj) 1.25 mg Q8H PRN IV PUSH 07/09/17 12:30 (Pill Splitter) 1 ea UNSCH PRN OTHER 07/09/17 13:15 (SEROquel) 25 mg ONCE ONCE PO 07/09/17 21:00 07/09/17 21:01 (Narcan Inj) 0.4 mg UNSCH PRN IV PUSH 07/09/17 13:30 (Morphine Inj) 2 mg Q4H PRN IV PUSH 07/09/17 16:30 07/09/17 16:52 (Ativan Inj) 1 mg Q4H PRN IV PUSH 07/09/17 16:30 07/09/17 16:47 (Haldol Inj) 2 mg Q4H PRN IM 07/09/17 16:30 (SEROquel) 50 mg BID@09,12 PO 07/10/17 09:00 Physical Exam Vital Signs Vital Signs Date Time Temp Pulse Resp B/P (MAP) Pulse Ox O2 Delivery O2 Flow Rate FiO2 07/09/17 16:57 16 07/09/17 16:00 96.4 84 175/84 (114) 97 07/09/17 08:32 21 07/08/17 23:28 Nasal Cannula 2.00 I/O 07/09/17 07/09/17 07/10/17 08:00 16:00 00:00 Intake Total 240 ml Output Total 480 ml Balance -480 ml 240 ml Lab Results Test 07/08/17 19:20 07/09/17 05:50 07/09/17 12:00 07/09/17 13:45 White Blood Count 11.2 TH/MM3 Red Blood Count 4.44 MIL/MM3 Hemoglobin 13.4 GM/DL Hematocrit 38.9 % Mean Corpuscular Volume 87.6 FL Mean Corpuscular Hemoglobin 30.1 PG Mean Corpuscular Hemoglobin Concent 34.3 % Red Cell Distribution Width 13.6 % Platelet Count 314 TH/MM3 Mean Platelet Volume 6.9 FL Neutrophils (%) (Auto) 74.6 % Lymphocytes (%) (Auto) 15.0 % Monocytes (%) (Auto) 7.7 % Eosinophils (%) (Auto) 1.4 % Basophils (%) (Auto) 1.3 % Neutrophils # (Auto) 8.3 TH/MM3 Lymphocytes # (Auto) 1.7 TH/MM3 Monocytes # (Auto) 0.9 TH/MM3 Eosinophils # (Auto) 0.2 TH/MM3 Basophils # (Auto) 0.1 TH/MM3 CBC Comment DIFF FINAL Differential Comment Urine Color YELLOW Urine Turbidity CLEAR Urine pH 5.5 Urine Specific [place] 1.020 Urine Protein NEG mg/dL Urine Glucose (UA) 100 mg/dL Urine Ketones NEG mg/dL Urine Occult Blood TRACE Urine Nitrite NEG Urine Bilirubin NEG Urine Urobilinogen 0.2 MG/DL Urine Leukocyte Esterase NEG Urine RBC 0-3 /hpf Urine WBC 0-2 /hpf Urine Squamous Epithelial Cells 0-5 /hpf Urine Bacteria NONE /hpf Microscopic Urinalysis Comment CULT NOT INDICATED Blood Urea Nitrogen 10 MG/DL Creatinine 1.10 MG/DL Random Glucose 145 MG/DL Total Protein 8.1 GM/DL Albumin 3.9 GM/DL Calcium Level 8.7 MG/DL Alkaline Phosphatase 107 U/L Aspartate Amino Transf (AST/SGOT) 14 U/L Alanine Aminotransferase (ALT/SGPT) 14 U/L Total Bilirubin 0.3 MG/DL Sodium Level 133 MEQ/L Potassium Level 3.9 MEQ/L Chloride Level 100 MEQ/L Carbon Dioxide Level 25.4 MEQ/L Anion Gap 8 MEQ/L Estimat Glomerular Filtration Rate 64 ML/MIN Total Creatine Kinase 82 U/L Thyroid Stimulating Hormone 3rd Gen 0.694 uIU/ML Triglycerides Level 185 MG/DL Cholesterol Level 267 MG/DL LDL Cholesterol 191 MG/DL HDL Cholesterol 39.3 MG/DL Cholesterol/HDL Ratio 6.79 RATIO Erythrocyte Sedimentation Rate 28 mm/hr Troponin I 0.77 NG/ML 1.55 NG/ML C-Reactive Protein 0.90 MG/DL Vitamin B12 Level 393 PG/ML Free Thyroxine 1.33 NG/DL Mental Status Examination Appearance: Other (In [facility]) Consciousness: Other (Sedated) Motor Activity: Other (Lying in hospital bed) Speech: Other (Unable to participate as patient is sedated) Language: Other (Unable to participate as patient is sedated) Attention and Concentration: Other Mood: Other (Unable to assess as patient is sedated) Affect: Other (Sleep) Thought Process & Associations: Other (Unable to assess as patient is sedated) Thought Content: Other (Unable to assess as patient is sedated) Hallucination Type: Visual (As per report) Delusion Type: Other (Unable to assess as patient is sedated) Insight: Poor Judgment: Poor Assessment & Plan Problem List: (1) Unspecified psychosis ICD Codes: F29 - Unspecified psychosis not due to a substance or known physiological condition (2) Delirium ICD Codes: R41.0 - Disorientation, unspecified Assessment & Plan Patient is an 81-year-old man who carries a diagnosis of depression no previous psychiatric admissions no previous suicide attempt or self interest behavior with a past medical history significant for heart disease, history of laryngeal cancer 15 years ago, who was brought in due to altered mental status and behavioral changes who has been displaying increased agitation and visual hallucinations. Patient unable to participate in interview today but collateral was obtained through staff and family who has been at bedside since admission. Patient's visual hallucination unlikely to be secondary to a primary psychiatric etiology and likely delirium at this time. Recommend quetiapine 25 mg p.o. twice daily for psychosis and for impulse control and behavioral dysregulation with upward titration as needed, can continue lorazepam as needed for agitation as well as olanzapine 5 mg IM every 8 hours for breakthrough/severe agitation. Monitor QTc interval has all psychotropics can prolong QTc interval. . Consider limiting benzos/anticholinergics as much as possible to avoid further cognitive impairment and paradoxical agitation/ aggression. Consult appreciated. Alexis Oquendo MD Jul 09, 2017 18:25
--- NOTE | 2017-07-09 19:01 | MB ---
cc: Danya Das MD DATE: 07/09/2017 REASON FOR CONSULTATION: Elevated troponin. HISTORY OF PRESENT ILLNESS: Mr. Beavers is an 81-year-old man who presented to the emergency room with altered mental status. He does have a history of severe inoperable carotid artery disease, hypertension, hyperlipidemia and an ischemic cardiomyopathy with an ejection fraction of approximately 35%. The patient was apparently brought in by the family for altered mental status. He is not able to currently give any history at this time. Thus, the HPI is per history of present records. PAST MEDICAL HISTORY: Significant for atrial fibrillation with a CHADS VASc score of 5, hypertension, hyperlipidemia, chronic kidney disease with a baseline creatinine of approximately 1.3, coronary artery disease with prior 4-vessel CABG that included a LAY to LAD, SVG to OM1, OM2 and OM3 in 1996. Catheterization in 2009 showed only a patent LAY to LAD. His last EF was 37% by nuclear stress test that was nonischemic in 03/2016, diabetes, esophageal stricture, myocardial infarctions, mitral regurgitation, right bundle branch block, syncope and tobacco use. ALLERGIES: NO KNOWN DRUG ALLERGIES. OUTPATIENT MEDICATIONS: 1. Atorvastatin 80 mg daily. 2. Diltiazem 240 mg every day. 3. Eliquis 5 mg b.i.d. 4. Hydroxyzine. 5. Imdur 30 mg a day. 6. Levothyroxine 100 mcg a day. 7. Lisinopril 10 mg a day. 8. Metformin 850 mg a day. 9. Niaspan. 10. Nitroglycerin. 11. Omeprazole. 12. Paxil. 13. Tramadol. SOCIAL HISTORY: The patient is a current smoker. PHYSICAL EXAMINATION: VITAL SIGNS: Temperature 96.4, heart rate 84, respiratory rate 20, blood pressure 175/84. GENERAL: He is confused and moving about the bed, though in no apparent distress. LUNGS: Decreased and clear to auscultation. CARDIOVASCULAR: He has a normal S1 and S2. No rubs or gallops were appreciated. There was a II/ systolic murmur. ABDOMEN: Soft. EXTREMITIES: Free from edema. DIAGNOSTIC STUDIES: Brain MRI does not show any acute infarct, but does show old lacunar infarcts. Lab values show serial troponins of 0.77 and 1.55. His creatinine is 1.1 and LDL is 191. Echocardiogram shows an EF of 20-25% with global hypokinesis. EKG shows a right bundle branch block and nonspecific ST-T wave changes. ASSESSMENT AND PLAN: 1. Elevated troponin -- The patient presents with altered mental status. He does have elevation in his troponin, potentially consistent with an ischemic event and primary myocardial infarction. He, however, has not complained of any chest pain and a secondary myocardial infarction cannot be excluded. In any case, the family has made him a do not resuscitate. Thus, we will continue with conservative medical management. Aspirin and heparin are felt relatively contraindicated given his anticoagulation status and currently on Xarelto. A low-dose beta yen will be added. The patient is not a revascularization candidate at this time. 2. Ischemic cardiomyopathy -- The patient will be on a beta yen and SILVERIO inhibitor. 3. Atrial fibrillation -- The patient has a fair rate control. 4. Altered mental status -- This will be per Neurology and the primary team. I will be available on a p.r.n. basis. MD DARIA Cates/ROE , 06:33 PM , 06:59 PM
[2017-07-09] MEDS: QUEtiapine FUMARATE 25 MG TAB PO SCH (20:29)
[2017-07-09] MEDS: METOPROLOL TARTRATE 25 MG TAB PO SCH (20:29)
[2017-07-09] MEDS: ATORVASTATIN 40 MG TAB PO SCH (20:29)
[2017-07-09] MEDS: NIACIN 500 MG EXTENDED RELEASE TAB PO SCH (20:29)
[2017-07-09] MEDS: hydrOXYzine HCL 25 MG TAB PO SCH (20:29)
--- NOTE | 2017-07-09 21:28 | PD.CAR.PN ---
CVT Progress Note Subjective/Hospital Course: Patient seen and evaluated Full consult dictated Not a surgical candidate Thanks Fabiola Objective: Vital Signs Date Time Temp Pulse Resp B/P (MAP) Pulse Ox O2 Delivery O2 Flow Rate FiO2 07/09/17 20:00 96.5 86 16 116/70 (85) 98 07/09/17 16:57 16 07/09/17 16:00 96.4 84 20 175/84 (114) 97 07/09/17 15:00 99 07/09/17 12:43 96.4 108 20 158/103 (121) 07/09/17 08:32 96 21 07/09/17 08:00 106 07/09/17 08:00 96.0 100 24 186/92 (123) 96 07/09/17 04:00 95.9 80 20 162/86 (111) 94 07/09/17 00:30 96.0 72 20 179/84 (115) 98 07/08/17 23:48 67 07/08/17 23:28 75 20 136/66 (89) 98 Nasal Cannula 2.00 07/08/17 22:05 97 21 07/08/17 22:00 98 2.00 07/08/17 22:00 75 20 132/67 (88) 98 Room Air Labs: Laboratory Tests Test 07/09/17 12:00 07/09/17 13:45 07/09/17 18:20 Erythrocyte Sedimentation Rate 28 mm/hr (0-20) Troponin I 0.77 NG/ML (0.02-0.05) 1.55 NG/ML (0.02-0.05) 3.66 NG/ML (0.02-0.05) C-Reactive Protein 0.90 MG/DL (0.00-0.30) Vitamin B12 Level 393 PG/ML (193-986) Free Thyroxine 1.33 NG/DL (0.76-1.46) Result Diagram: 07/08/17191907/08/171919 Bola Caro MD Jul 09, 2017 21:28
--- NOTE | 2017-07-09 21:45 | MB ---
cc: Bola Caro MD DATE: 07/09/2017 AIRPORT RAMP ATTENDANT: Bola Caro MD, vascular surgery. REASON FOR CONSULTATION: Possible stroke, previous carotid stenosis. HISTORY OF PRESENT DISEASE: This 81-year-old gentleman presented to [facility] with altered mental status and in the face of previous bilateral carotid stenosis, question arose about any remedy. PAST MEDICAL HISTORY: That of bilateral carotid stenosis, about 80%, hypertension, hyperlipidemia, atrial fibrillation, coronary artery disease, chronic renal insufficiency and ischemic cardiomyopathy. The patient's ejection fraction according to cardiology is only about 35%. PAST SURGICAL HISTORY: That of CABG in 1996 and a cardiac catheterization in 2009 that showed a low anterior descending and LAY, which were patent. MEDICATIONS: Can be found on the record. SOCIAL HISTORY: The patient was apparently doing okay at home and he is still a smoker. REVIEW OF SYSTEMS: The patient is now lying in bed. He is completely confused. Apparently, his confusion started suddenly yesterday and until then, the patient was fine, according to his family. Clearly he is limited by his age and debilitating comorbidities. IMPRESSION AND RECOMMENDATIONS: This unfortunate gentleman has 80% carotid stenosis, which was diagnosed in the past. He has multiple comorbidities and clearly patient is not a candidate for any major surgery including carotid endarterectomy. About 70% of patients who present with a stroke or altered mental status due to the vascular disease, have either small vessel disease of the brain or thromboemboli from cardiac arrhythmias, or both. Only about 30% have carotid stenosis. This unfortunate gentleman has all three. In the face of his frail status and medical issues he is definitely not a patient suitable for carotid surgery and therefore, I would not even pursue this line of diagnostic workup for it will not matter. At this point, we should support the gentleman the best we can with conservative measures. I thank you very much for referral. Bola Caro MD SJ/rt , 09:13 PM , 09:43 PM FRANCISCO
[2017-07-10] VITALS (8 sets, daily range): BP systolic 108–145; BP diastolic 69–82; PULSE 80–115; RESP 17–20; TEMP 95.1–97.1; O2SAT 90–98
[2017-07-10] MEDS: ISOSORBIDE MONONITRATE 30 MG CR TAB (IMDUR) PO SCH ×2 (03:52→08:23)
[2017-07-10] MEDS: LEVOTHYROXINE SODIUM 100 MCG TAB PO SCH (03:52)
[2017-07-10] MEDS: LORATADINE 10 MG TAB PO SCH (08:22)
[2017-07-10] MEDS: metFORMIN HCL 850 MG TAB PO SCH (08:22)
[2017-07-10] MEDS: QUEtiapine FUMARATE 25 MG TAB PO SCH ×2 (08:22→20:35)
[2017-07-10] MEDS: INSULIN ASPART SUPPLEMENTAL SCALE SQ SCH ×4 (08:22→20:29)
[2017-07-10] MEDS: METOPROLOL TARTRATE 25 MG TAB PO SCH ×2 (08:23→20:35)
[2017-07-10] MEDS: PANTOPRAZOLE SOD 40 MG DELAYED RELEASE TAB PO SCH (08:23)
[2017-07-10] MEDS: LISINOPRIL 10 MG TAB PO SCH (08:23)
[2017-07-10] MEDS: PARoxetine HCL 20 MG TAB PO SCH (08:23)
[2017-07-10] MEDS: SODIUM CHLORIDE 0.9% FLUSH 10 ML FLUSH IV FLUSH SCH ×2 (08:24→19:43)
[2017-07-10] MEDS: RIVAROXABAN 20 MG TAB PO SCH (08:24)
[2017-07-10] MEDS: DILTIAZEM-CD 240 MG CAP ER PO SCH (08:26)
[2017-07-10] MEDS ORDERED: QUEtiapine FUMARATE 25 MG TAB PO SCH ×2 (09:00)
--- NOTE | 2017-07-10 10:36 | MB ---
cc: Ryan Gonzalez MD DATE: 07/10/2017 HISTORY OF PRESENT ILLNESS: He is an 81-year-old seen for her second neurological opinion. He had been seen by Dr. Herr a couple days ago. He came to the hospital because of altered mental status and was admitted on 07/08. He lives with his daughter and was noted to be behaving different from usual/baseline. There was some urinary incontinence and the patient may have had hallucinations according to the emergency room evaluation notes. He threatened to call the police if the boy hiding in the cabinet did not leave. PAST MEDICAL HISTORY: There is a history of coronary artery disease, but no history of dementia. History of atrial fibrillation, on Xarelto. The patient has a history of laryngeal cancer and he had a CT of the brain initially showing old lacunar, right cerebellar, and right midbrain small vessel disease and no acute abnormality. The MRI of the brain findings also indicate a microvascular disease. CURRENT LABS: Include a sedimentation rate of 28, white count 11.2, hemoglobin 13.4, platelets 314. Sodium 133, glucose on admission 145, calcium corrected is 8.6, BUN and creatinine normal. CURRENT MEDICATIONS: Include diltiazem, lisinopril, metformin, Xarelto, Protonix, Paxil, quetiapine was discontinued, atorvastatin, levothyroxine, Imdur. As needed medications Zyprexa, morphine, Ativan, and Haldol. PHYSICAL EXAM: On exam, the patient was awake, pleasant, and cooperative eating his breakfast on his own. He was partially oriented. He stated he is 82 and thought he was in [place]. His right pupil is slightly smaller than the left, but both are reactive. Visual clark were full. Reflexes were trace responses. He moves all 4 extremities with some mild generalized weakness. Plantar responses were flexor. ASSESSMENT: Encephalopathy that appears to be resolving. The question of sedation was discussed. It appears that the patient received some Ativan last evening and slept well and is feeling and acting much better this morning. Would continue the support of general medical care, balance sedation and education type of medicine approach trying to avoid any over sedation. If medically stable cardiac fernandez, he will start physical therapy. I saw the cardiovascular consultation not that the patient is not a candidate for carotid endarterectomy as he apparently has some 80% stenosis, and I have not seen the results of such imaging studies, but considering the clinical picture discussed, I would definitely agree will with conservative medical care. Thank you for asking us to assist in his care. Discussed with the RN at the bedside this morning. MD NIA Del Toro/DL , 09:57 AM , 10:34 AM
[2017-07-10] MEDS ORDERED: METO25TA3 PO (11:15)
[2017-07-10] MEDS ORDERED: SERO25TA PO (11:15)
--- NOTE | 2017-07-10 11:15 | HHI.DS ---
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 (1) Diabetes Mellitus Status: Chronic (2) Hyperlipidemia associated with type 2 diabetes mellitus ICD Code: E11.69 - Hyperlipidemia associated with type 2 diabetes mellitus; E78.5 - Hyperlipidemia, unspecified Status: Chronic (3) Hypothyroidism ICD Code: E03.9 - Hypothyroidism Status: Chronic (4) Coronary arteriosclerosis Status: Chronic (5) Atrial fibrillation with RVR ICD Code: I48.91 - Unspecified atrial fibrillation Status: Acute (6) Carotid artery stenosis ICD Code: I65.29 - Carotid artery stenosis Status: Acute (7) TIA (transient ischemic attack) ICD Code: G45.9 - Transient cerebral ischemic attack, unspecified (8) Dehydration ICD Code: E86.0 - Dehydration Status: Acute (9) Depression ICD Code: F32.9 - Major depressive disorder, single episode, unspecified Status: Acute (10) Delirium ICD Code: R41.0 - Disorientation, unspecified (11) Unspecified psychosis ICD Code: F29 - Unspecified psychosis not due to a substance or known physiological condition (12) CVA (cerebral vascular accident) ICD Code: I63.9 - Cerebral infarction, unspecified Status: Acute Procedures No procedures Brief History - From Admission 80-year-old male with past medical history significant for hypertension, hyperlipidemia, afib, and coronary artery disease status post CABG with quadruple bypass in 1996 who initially presented to [place] emergency department accompanied by his daughter with concerns of worsening altered mental status with behavioral changes. The patient's symptoms started last weekend, they noticed on Thursday the patient had one episode of urinary incontinence. 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 He was telling his daughter that there was a boy that was hiding in a cabinet within the house, apparently he threatened to call the police if the boy did not leave. The patient does have a history of coronary artery disease, previous CABG, but no history of dementia. The patient is currently taking Xarelto for history of atrial fibrillation. They deny any visible trauma to the patient's head. The patient is asymptomatic and denies any current complaints. However, the daughter states that the patient has had a change in mental status today and is gettign progressively worse. The patient 's primary physician is Dr. Fan. The patient's orthoptist is Dr. Das. The daughter also says that Dr Das had ordered US and CTA carotids recently. Patient has significant bilateral stenosis of the carotids. Also noted with elevated trops Dr Das consulted will eval patient Patient denies chest apin or sob. He is satting well on room air. No n/v/d/c. CBC/BMP: 07/08/17191907/08/171919 Significant Findings Laboratory Tests Test 07/08/17 19:20 07/09/17 05:50 07/09/17 12:00 07/09/17 13:45 White Blood Count 11.2 TH/MM3 (4.0-11.0) Red Blood Count 4.44 MIL/MM3 (4.50-5.90) Hematocrit 38.9 % (39.0-51.0) Mean Platelet Volume 6.9 FL (7.0-11.0) Neutrophils (%) (Auto) 74.6 % (16.0-70.0) Neutrophils # (Auto) 8.3 TH/MM3 (1.8-7.7) Urine Glucose (UA) 100 mg/dL (NEG) Random Glucose 145 MG/DL (74-106) Aspartate Amino Transf (AST/SGOT) 14 U/L (15-37) Sodium Level 133 MEQ/L (136-145) Estimat Glomerular Filtration Rate 64 ML/MIN (>89) Hemoglobin A1c 7.3 % (4.3-6.0) Triglycerides Level 185 MG/DL (42-150) Cholesterol Level 267 MG/DL (120-200) LDL Cholesterol 191 MG/DL (0-99) HDL Cholesterol 39.3 MG/DL (40.0-60.0) Erythrocyte Sedimentation Rate 28 mm/hr (0-20) Troponin I 0.77 NG/ML (0.02-0.05) 1.55 NG/ML (0.02-0.05) C-Reactive Protein 0.90 MG/DL (0.00-0.30) Test 07/09/17 18:20 Troponin I 3.66 NG/ML (0.02-0.05) Imaging Last Impressions Brain MRI 07/09/17 1048 Signed Impressions: Service Date/Time: June 12:28 - CONCLUSION: 1. Moderate periventricular and subcortical white matter small vessel ischemic changes bilaterally. 2. 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 3. No acute infarct, acute hemorrhage, midline shift or extra axial fluid collections. Simon Sahu MD Head CT 07/08/17 1918 Signed Impressions: Service Date/Time: Saturday, July 08, 2017 20:18 - CONCLUSION: 1. Possible subacute or old small left frontal lobe infarct. White matter ischemic changes. Remote lacunar infarct right cerebellum. Lowell Parrish MD PE at Discharge GENERAL: This is a well-nourished, well-developed patient, in no apparent distress. CARDIOVASCULAR: Regular rate and rhythm without murmurs, gallops, or rubs. RESPIRATORY: Clear to auscultation. Breath sounds equal bilaterally. No wheezes , rales, or rhonchi. GASTROINTESTINAL: Abdomen soft, non-tender, nondistended. No hepato-splenomegaly , or palpable masses. No guarding. MUSCULOSKELETAL: Extremities without clubbing, cyanosis, or edema. No joint tenderness, effusion, or edema noted. No calf tenderness. Negative Homans sign bilaterally. NEUROLOGICAL: Awake and alert. Cranial nerves II through XII intact. Motor and sensory grossly within normal limits. Five out of 5 muscle strength in all muscle groups. Normal speech. 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 He denies any chest pain or shortness of breath. He is pleasantly confused. Follows some commands. No nausea or vomiting or constipation. Eating very well in the morning. Hospital Course Poss subacute left frontal infarction with behavioral changes Bilateral carotid stenosis Visual hallucinations/psychosis CT reports from 06/23/17 from [facility] reviewed: Symmetric critical stenosis in the mid common carotid artery bilaterally 80-90% with flow- limiting. The right stenosis is associated with significant ulceration. None ostial stenosis of the right internal carotid artery 70-80%. Occlusion of the right vertebral. Neurochecks Consult neurology. Seen by Dr Herr , check MRI, EEG, additional work up per neuro . also thinks is sleep deprivation, plan for sleep chart tonight . Family honey is requesting for 2nd opinion for neurology. Dr Herr notified. Place consult neuro for 2nd opinion Elevated troponin 0.77 . Trend troponin , EKG. Consult Dr Das his cardio for evaluation Consult vascular surgeon for evaluation Monitor vital signs Keep normoglycemic normotensive Start seroquel. Consult psychiatry Elevated troponin 0/6--> 1.55--> 3 trending up . Patient denies any chest pain. Discussed with Dr Das his cardiology Dr Will evaluate patient. Family decided for conservative management. Add metoprolol 12.4 mg po bid Chronic a-fib Currently rate controlled Diltiazem 120mg ER daily and Xarelto 20mg daily at home. Given current recommendation by cardiology for Metoprolol 25mg TID and current heart rate, will hold home diltiazem pending cardiology's recommendations. On Xarelto HTN (hypertension) Currently 159/77. 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 Review of records show 100mg was most recently prescribed. Will prescribe this amount and could increase to 150 if it is revealed that this is the patient's home dose. HLD (hyperlipidemia) Continue PICK UP WORKER atorvastatin 80mg daily DM (diabetes mellitus) Hold metformin. Accuchecks, monitor BS. Low dose ISS. Tobacco dependence, continuous Counselled regarding cessation. Hypothyroidism Continue PICK UP WORKER levothyroxine 100 g daily GERD History of GERD could be contributing to patient's discomfort. Protonix 40mg daily DVT ppx on xarelto CODE STATUS: DNR Seen by palliative care. Family patient decided for SNF and then to transition to hospice. Discharge patient to SNF Pt Condition on Discharge: Stable Discharge Disposition: Hospice/Med Facility Discharge Time: > 30 minutes Discharge Instructions DIET: Follow Instructions for: Heart Healthy Diet Activities you can perform: Regular-No Restrictions Follow up Referrals: Cardiology - 2 Weeks Neurology - 2 Weeks PCP Follow-up - 2-3 Days New Medications: Metoprolol Tartrate (Metoprolol Tartrate) 25 Mg Tab 12.5 MG PO Q12HR for Blood Pressure Management, #60 TAB Quetiapine (Seroquel) 25 Mg Tab 25 MG PO BID for Agitation, #60 TAB Continued Medications: Atorvastatin (Atorvastatin) 80 Mg Tab 1 MG PO HS, #90 TAB 4 Refills Diltiazem CD 24 HR (Diltiazem CD 24 HR) 240 Mg Caper 240 MG PO DAILY, #90 CAP 4 Refills Hydroxyzine HCl (Hydroxyzine HCl) 25 Mg Tab 25 MG PO HS, #90 TAB 0 Refills Isosorbide Mononitrate ER (Isosorbide Mononitrate ER) 30 Mg Benja 30 MG PO DAILY for Prevent Chest Pain, #30 TAB 0 Refills Levothyroxine (Levothyroxine) 100 Mcg Tab 100 MCG PO DAILY for Thyroid, #90 TAB 4 Refills Lisinopril (Lisinopril) 10 Mg Tab 10 MG PO DAILY, #90 TAB 4 Refills Loratadine (Allergy) 10 Mg Tab 10 MG PO DAILY Metformin (Metformin) 850 Mg Tab 850 MG PO DAILY for Blood Sugar Management, #90 TAB 4 Refills With a meal Niacin ER (Niaspan) 500 Mg Tab 1500 MG PO HS for Cholesterol Management, #90 TAB 4 Refills Nitroglycerin SL (Nitrostat SL) 0.4 Mg Subl 0.4 MG SL DIRECTED PRN for CHEST PAIN, #100 TAB.SL 3 Refills Omeprazole (Omeprazole) 40 Mg Cap 40 MG PO DAILY, #90 CAP 4 Refills Paroxetine (Paxil) 10 Mg Tab 10 MG PO DAILY, #90 TAB 2 Refills Rivaroxaban (Xarelto) 20 Mg Tab 1 MG PO DAILY, #90 TAB 0 Refills Tramadol (Tramadol) 50 Mg Tab 50 MG PO Q4H PRN for PAIN, #120 TAB 0 Refills Mary Ross MD Jul 10, 2017 11:15
[2017-07-10] MEDS: LORazepam 2 MG/ML VIAL IV PUSH PRN (11:49)
--- NOTE | 2017-07-10 13:02 | HHI.PR ---
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 He denies any chest pain or shortness of breath. He is pleasantly confused. Follows some commands. No nausea or vomiting or constipation. Eating very well in the morning. Objective Vitals Vital Signs Date Time Temp Pulse Resp B/P (MAP) Pulse Ox O2 Delivery O2 Flow Rate FiO2 07/10/17 08:00 95.1 82 20 145/82 (103) 92 07/10/17 07:36 90 21 07/10/17 04:00 96.8 80 18 112/72 (85) 95 07/10/17 00:00 97.1 82 17 121/69 (86) 96 07/09/17 21:15 95 Nasal Cannula 2.00 07/09/17 20:00 96.5 86 16 116/70 (85) 98 07/09/17 16:57 16 07/09/17 16:00 96.4 84 20 175/84 (114) 97 07/09/17 15:00 99 I/O 07/09/17 07/09/17 07/09/17 07/10/17 07/10/17 07/10/17 06:59 14:59 22:59 06:59 14:59 22:59 Intake Total 250 ml 540 ml 240 ml Output Total 880 ml Balance -630 ml 540 ml 240 ml Intake Oral 540 ml 240 ml IV Total 250 ml Output Urine Total 880 ml # Voids 2 1 2 # Bowel Movements 0 Result Diagram: 07/08/17191907/08/171919 Imaging Last Impressions Brain MRI 07/09/17 1048 Signed Impressions: Service Date/Time: June 12:28 - CONCLUSION: 1. Moderate periventricular and subcortical white matter small vessel ischemic changes bilaterally. 2. 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 3. No acute infarct, acute hemorrhage, midline shift or extra axial fluid collections. Simon Sahu MD Head CT 07/08/171917 Signed Impressions: Service Date/Time: Saturday, July 08, 2017 20:18 - CONCLUSION: 1. Possible subacute or old small left frontal lobe infarct. White matter ischemic changes. Remote lacunar infarct right cerebellum. Lowell Parrish MD Objective Remarks GENERAL: This is a well-nourished, well-developed patient, in no apparent distress. CARDIOVASCULAR: Regular rate and rhythm without murmurs, gallops, or rubs. RESPIRATORY: Clear to auscultation. Breath sounds equal bilaterally. No wheezes , rales, or rhonchi. GASTROINTESTINAL: Abdomen soft, non-tender, nondistended. No hepato-splenomegaly , or palpable masses. No guarding. MUSCULOSKELETAL: Extremities without clubbing, cyanosis, or edema. No joint tenderness, effusion, or edema noted. No calf tenderness. Negative Homans sign bilaterally. NEUROLOGICAL: Awake and alert. Cranial nerves II through XII intact. Motor and sensory grossly within normal limits. Five out of 5 muscle strength in all muscle groups. Normal speech. Procedures No procedures A/P Problem List: (1) Diabetes Mellitus Status: Chronic Permanent Comment: 03/2014: A1c-6.9 07/2013: A1c-6.9 Last Edited By: Candido Greene on Jul 26, 2014 08:49 (2) Hyperlipidemia associated with type 2 diabetes mellitus ICD Code: E11.69 - Hyperlipidemia associated with type 2 diabetes mellitus; E78.5 - Hyperlipidemia, unspecified Status: Chronic Permanent Comment: 03/2014: Trig-171, LDL-131, HDL-28 Last Edited By: Candido Greene on Apr 18, 2014 18:58 (3) Hypothyroidism ICD Code: E03.9 - Hypothyroidism Status: Chronic Permanent Comment: 03/2014: TSH-2.63, T4-1.11 Last Edited By: Candido Greene on Apr 18, 2014 18:57 (4) Coronary arteriosclerosis Status: Chronic (5) Atrial fibrillation with RVR ICD Code: I48.91 - Unspecified atrial fibrillation Status: Acute (6) Carotid artery stenosis ICD Code: I65.29 - Carotid artery stenosis Status: Acute Permanent Comment: 11/2013: US-b/l moderate plaquing with stenosis 50-69%. Last Edited By: Candido Greene on Nov 28, 2013 11:21 (7) TIA (transient ischemic attack) ICD Code: G45.9 - Transient cerebral ischemic attack, unspecified (8) Dehydration ICD Code: E86.0 - Dehydration Status: Acute (9) Depression ICD Code: F32.9 - Major depressive disorder, single episode, unspecified Status: Acute (10) Delirium ICD Code: R41.0 - Disorientation, unspecified (11) Unspecified psychosis ICD Code: F29 - Unspecified psychosis not due to a substance or known physiological condition (12) CVA (cerebral vascular accident) ICD Code: I63.9 - Cerebral infarction, unspecified Status: Acute Assessment and Plan Poss subacute left frontal infarction with behavioral changes Bilateral carotid stenosis Visual hallucinations/psychosis CT reports from 06/23/17 [facility] reviewed: Symmetric critical stenosis in the mid common carotid artery bilaterally 80-90% with flow- limiting. The right stenosis is associated with significant ulceration. None ostial stenosis of the right internal carotid artery 70-80%. Occlusion of the right vertebral. Neurochecks Consult neurology. Seen by Dr Herr , check MRI, EEG, additional work up per neuro . also thinks is sleep deprivation, plan for sleep chart tonight . Family honey is requesting for 2nd opinion for neurology. Dr Herr notified. Place consult neuro for 2nd opinion Elevated troponin 0.77 . Trend troponin , EKG. Consult Dr Das his cardio for evaluation Consult vascular surgeon for evaluation Monitor vital signs Keep normoglycemic normotensive Start seroquel. Consult psychiatry Elevated troponin 0/6--> 1.55--> 3 trending up . Patient denies any chest pain. Discussed with Dr Das his cardiology Dr Will evaluate patient. Family decided for conservative management. Add metoprolol 12.4 mg po bid Chronic a-fib Currently rate controlled Diltiazem 120mg ER daily and Xarelto 20mg daily at home. Given current recommendation by cardiology for Metoprolol 25mg TID and current heart rate, will hold home diltiazem pending cardiology's recommendations. On Xarelto HTN (hypertension) Currently 159/77. 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 Review of records show 100mg was most recently prescribed. Will prescribe this amount and could increase to 150 if it is revealed that this is the patient's home dose. HLD (hyperlipidemia) Continue PLANT INSPECTOR atorvastatin 80mg daily DM (diabetes mellitus) Hold metformin. Accuchecks, monitor BS. Low dose ISS. Tobacco dependence, continuous Counselled regarding cessation. Hypothyroidism Continue PLANT INSPECTOR levothyroxine 100 g daily GERD History of GERD could be contributing to patient's discomfort. Protonix 40mg daily DVT ppx on xarelto CODE STATUS: DNR Discussed with tht rupert, nurse, palliative care Problem Qualifiers (1) CVA (cerebral vascular accident): Qualified Codes: I63.9 - Cerebral infarction, unspecified Mary Ross MD Jul 10, 2017 13:02
--- NOTE | 2017-07-10 14:16 | PD.CONS ---
Consult Service Palliative Care Consult Requested By Dr. Ross Primary Care Physician Denzel Fan MD Reason for Consultation a. To assist with evaluation and management of symptoms including: Confusion , agitation b. To assist medical decision maker(s) with: better understanding of current medical conditions; weighing benefits/burdens of medical treatment options; making medical treatment decisions. (Daya Brewster) HPI History of Present Illness This is a very pleasant 81-year-old, nearly 82-year-old, male who was brought to [facility] by his daughter, with whom he lives, 07/08 for altered mental status and hallucinations. She states that his morning had been uneventful, he had made his own breakfast, done laundry, walked the dog and cleaned up his room and while doing the laundry told his daughter that "there is a little man under the laundry room sink, but probably will not be able to see him". The daughter walked to the laundry room and saw nobody under the sink , yet the father still insisted that he had seen him but when he looked back he was gone. He also states that he saw that same "cute little jaxon" out on the front lawn earlier. The daughter thought it may have been the computer networker, but through the day the father continued to see and talk to this invisible person. The daughter is a clinical social media community manager and did a routine neuro exam at the time testing strength and movement in all 4 extremities, facial asymmetry , cranial nerve function, sensation and could find no obvious focal deficits. She suspected a possible urinary tract infection and so brought him to the emergency room where he continued to become more confused, combative and agitated. He was still seeing that same little man. Initial CT of the brain was suggestive of a subacute frontal lobe stroke and due to patient's agitation he received a small dose of Risperdal. Brain MRI however showed moderate periventricular and subcortical white matter small vessel ischemic changes bilaterally with old lacunar infarcts within the right cerebellar hemisphere and right midbrain. No acute infarct, acute hemorrhage, midline shift or extra-axial fluid collection was seen. No physical focal deficits were found in strength, sensation or symmetry. Presenting laboratory studies show WBC 11.2, hemoglobin 13.4, hematocrit 38.9, platelets 314, sodium 133, potassium 3.9, BUN 10, creatinine 1.10, random glucose 145, AST 14, ALT 14 , alk phos 107, total creatinine kinase 82, total protein 8.1, albumin 3.9, AMAURI and RPR are pending. Urinalysis was negative. 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 Das. Recent studies of the carotid indicate a bilateral 80% occlusion by CT and carotid ultrasound, and he was deemed to be not a surgical candidate by Dr. Caro. Dr. Das was consulted for evaluation and ordered serial troponins which returned as 0.77, 1.55, 3.66. Previous cardiac catheterization by Dr. Das in 2009 showed an ejection fraction of 45-50% with apical hypokinesis, diffusely diseased left main of 30%, occluded LAD, on appreciable circumflex and diffuse mild to moderate disease of the RCA with a mid 20-30% stenosis and distal 30-40% stenosis. LAY graft was patent to the LAD. Medical management was chosen at that time. He also underwent myocardial perfusion study 04/11/2016 showing no significant reversible defect with a fixed defect of the narendra-lateral wall. 2D echocardiogram done on admission showed a severely reduced left ventricular systolic function in the range of 20- 25% with a moderately dilated left ventricle, normal wall thickness bicuspid aortic versus trileaflet valve with partly fused commissure, diffuse calcification of the aortic valve normal estimated pulmonary pressures with mild mitral regurgitation and trace tricuspid regurgitation. Telemetry history review shows multiple episodes of nonsustained ventricular tachycardia with salvos of 4-6 beats and multiple episodes of paroxysmal atrial fibrillation. He was seen by Dr. Herr for neurology who opined that the patient was suffering from sleep deprivation, stopped all anxiolytics and sedation and ordered an EEG. The EEG showed a mildly abnormal pattern because of bilateral slowing suggesting bilateral abnormalities, either metabolic or structural but no epileptiform features present. The daughter stated that the patient had been sleeping fine on a daily basis and that this was an acute problem that started the previous morning, who had not slept overnight due to agitation and confusion. He had also become combative requiring both the daughter and her roommate to physically restrain him. The daughter asked for him to receive some Ativan to allow him to sleep through the night and hopefully have not improved morning but the narcotics were restricted by Dr. Herr. The daughter subsequently fired Dr. Herr and asked for a different neurologist. He was subsequently seen by Dr. Gonzalez, who noted improvement of the encephalopathy after the patient received Ativan and slept well through the night, recommending conservative medical management, general medical support, balancing sedation versus daytime alertness and to initiate physical therapy. Psychiatry was consulted due to unspecified psychosis who found no underlying psychiatric etiology and opined that it was likely delirium at this time, recommended Seroquel 25 mg twice daily as a baseline dose and needed for agitation. . Function/Cognitive Trajectory He function fairly independently at home with minimal support. His daughter paid his bills but otherwise he managed all of his ADLs independently. He had mild deficits secondary to detached retina and did not drive but assisted in housecleaning, laundry, family activities and cooking. This is an acute decline. . (Daya Brewster) Review of Systems ROS Limitations: Altered Mental Status Constitutional: COMPLAINS OF: Generalized weakness Ears, nose, mouth, throat: COMPLAINS OF: Hoarseness Psychiatric: COMPLAINS OF: Confusion, Depression, Agitation (Daya Brewster) Past Family Social History Coded Allergies: No Known Allergies (Verified Adverse Reaction, Unknown, 07/08/17) Past Medical History Laryngeal cancer status post chemotherapy and radiation, 2001 Diabetes Hypertension Hyperlipidemia Depression GERD CAD Detached retina right eye Past Surgical History Appendectomy CABG, quadruple bypass in 1996 Cataract surgery PEG tube placement [id number] placement Reported Medications Reported Meds & Active Scripts Active Metoprolol Tartrate 25 Mg Tab 12.5 Mg PO Q12HR Seroquel (Quetiapine Fumarate) 25 Mg Tab 25 Mg PO BID Hydroxyzine HCl 25 Mg Tab 25 Mg PO HS Niaspan (Niacin) 500 Mg Tab 1,500 Mg PO HS Xarelto (Rivaroxaban) 20 Mg Tab 1 Mg PO DAILY Tramadol (Tramadol HCl) 50 Mg Tab 50 Mg PO Q4H PRN Levothyroxine (Levothyroxine Sodium) 100 Mcg Tab 100 Mcg PO DAILY Lisinopril 10 Mg Tab 10 Mg PO DAILY Metformin (Metformin HCl) 850 Mg Tab 850 Mg PO DAILY With a meal Omeprazole 40 Mg Cap 40 Mg PO DAILY Atorvastatin (Atorvastatin Calcium) 80 Mg Tab 1 Mg PO HS Paxil (Paroxetine HCl) 10 Mg Tab 10 Mg PO DAILY Diltiazem CD 24 HR 240 Mg Caper 240 Mg PO DAILY Nitrostat SL (Nitroglycerin) 0.4 Mg Subl 0.4 Mg SL DIRECTED PRN Reported Allergy (Loratadine) 10 Mg Tab 10 Mg PO DAILY Isosorbide Mononitrate ER (Isosorbide Mononitrate) 30 Mg Benja 30 Mg PO DAILY . Current Medications Medications (Trade) Dose Ordered Sig/Diaz Route Start Time Stop Time Status Last Admin (NS Flush) 2 ml BID IV FLUSH 07/09/17 09:00 07/10/17 08:24 (NS Flush) 2 ml UNSCH PRN IV FLUSH 07/08/17 21:45 (NovoLOG SUPPLEMENTAL SCALE) 1 ACHS SQ 07/09/17 08:00 07/10/17 13:13 (D50w (Vial) Inj) 50 ml UNSCH PRN IV PUSH 07/08/17 21:45 (Glucagon Inj) 1 mg UNSCH PRN OTHER 07/08/17 21:45 (Lipitor) 80 mg HS PO 07/09/17 21:00 (Cardizem Cd) 240 mg DAILY PO 07/10/17 09:00 07/10/17 08:26 (Atarax) 25 mg HS PO 07/09/17 21:00 (Imdur) 30 mg DAILY@0700 PO 07/10/17 07:00 07/10/17 08:23 (Synthroid) 100 mcg DAILY@0600 PO 07/10/17 06:00 (Prinivil) 10 mg DAILY PO 07/10/17 09:00 07/10/17 08:23 (Claritin) 10 mg DAILY PO 07/10/17 09:00 07/10/17 08:22 (Glucophage) 850 mg DAILY PO 07/10/17 09:00 07/10/17 08:22 (Slo-Niacin) 1,500 mg HS PO 07/09/17 21:00 (Xarelto) 20 mg DAILY PO 07/10/17 09:00 07/10/17 08:24 (Ultram) 50 mg Q4H PRN PO 07/09/17 12:15 (Protonix) 40 mg DAILY PO 07/10/17 09:00 07/10/17 08:23 (Paxil) 10 mg DAILY PO 07/10/17 09:00 07/10/17 08:23 (Vasotec Inj) 1.25 mg Q8H PRN IV PUSH 07/09/17 12:30 (Pill Splitter) 1 ea UNSCH PRN OTHER 07/09/17 13:15 (Narcan Inj) 0.4 mg UNSCH PRN IV PUSH 07/09/17 13:30 (Morphine Inj) 2 mg Q4H PRN IV PUSH 07/09/17 16:30 07/09/17 16:52 (Ativan Inj) 1 mg Q4H PRN IV PUSH 07/09/17 16:30 07/10/17 11:49 (Haldol Inj) 2 mg Q4H PRN IM 07/09/17 16:30 (SEROquel) 25 mg BID PO 07/09/17 21:00 07/10/17 08:22 (ZyPREXA INJ) 5 mg Q8HR PRN IM 07/09/17 18:15 (Lopressor) 12.5 mg Q12HR PO 07/09/17 21:00 07/10/17 08:23 . Family History Father - from [place] age 89 Mother - in her 60s from a stroke Brother - from "old age", unknown medical problems Daughter - healthy . Substance Use Tobacco: Continues to smoke. Has a history of 2-3 packs a day for 45-50 years, now decreased. Alcohol: Drank alcohol heavily but quit drinking in 1974. Prescription med abuse: No history. Illicits: No history. . Psychosocial History He was born in [place], was from his of 57 years short time ago. 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 He has been living in [place] for the past 14 years, for the last year and a half with his daughter, since his . . Spiritual/Cultural Factors He is listed as a alevism and would appreciate branch lead visits. . (Daya Brewster) Living Will: Never completed Health Care Surrogate: Never completed Durable Power of [employer]: Never completed (Daya Brewster) Physical Exam Vital Signs Date Time Temp Pulse Resp B/P (MAP) Pulse Ox O2 Delivery O2 Flow Rate FiO2 07/10/17 12:00 115 20 108/77 (87) 95 07/10/17 08:00 95.1 82 20 145/82 (103) 92 07/10/17 07:36 90 21 07/10/17 04:00 96.8 80 18 112/72 (85) 95 07/10/17 00:00 97.1 82 17 121/69 (86) 96 07/09/17 21:15 95 Nasal Cannula 2.00 07/09/17 20:00 96.5 86 16 116/70 (85) 98 07/09/17 16:57 16 07/09/17 16:00 96.4 84 20 175/84 (114) 97 07/09/17 15:00 99 07/10/17 07/11/17 19:00 07:00 Intake Total 240 ml Balance 240 ml Intake Oral 240 ml Exam CONSTITUTIONAL/GENERAL: This is an adequately nourished patient, in no apparent distress. TUBES/LINES/DRAINS: PIV right forearm SKIN: No jaundice, rashes, or lesions. Ecchymoses on upper extremities. No wounds seen anteriorly. Skin temperature appropriate. Not diaphoretic. HEAD: Atraumatic. Normocephalic. EYES: Pupils equal and round and reactive. Extraocular motions intact. No scleral icterus. No injection or drainage. Fundi not examined. ENT: Hearing grossly normal. Nose without bleeding or purulent drainage. Throat without visible erythema, exudates, masses, or lesions. NECK: Trachea midline. Supple, nontender. No palpable thyroid enlargement or nodularity. CARDIOVASCULAR: Regular rate and rhythm without murmurs, gallops, or rubs. No JVD. Peripheral pulses symmetric. Has intermittent episodes of paroxysmal atrial fibrillation and frequent PVCs. RESPIRATORY/CHEST: Symmetric, unlabored respirations. Clear to auscultation. Breath sounds equal bilaterally. No wheezes, rales, or rhonchi. GASTROINTESTINAL: Abdomen soft, non-tender, nondistended. No hepato-splenomegaly , or palpable masses. No guarding. Bowel sounds present. GENITOURINARY: Without palpable bladder distension. MUSCULOSKELETAL: Extremities without clubbing, cyanosis, or edema. No joint tenderness or effusion noted. No calf tenderness. No mottling or clubbing. Equal strength in all 4 extremities. LYMPHATICS: No palpable cervical or supraclavicular adenopathy. NEUROLOGICAL: He is awake, alert, confused, smiling, cooperative at this visit. He is oriented to self. PSYCHIATRIC: No obvious anxiety/depression. no apparent hallucinations or other psychotic thought process at this time. . (Daya Brewster) Diagnostic Tests Laboratory Laboratory Tests Test 07/08/17 19:20 07/09/17 05:50 07/09/17 12:00 07/09/17 13:45 White Blood Count 11.2 TH/MM3 (4.0-11.0) Red Blood Count 4.44 MIL/MM3 (4.50-5.90) Hemoglobin 13.4 GM/DL (13.0-17.0) Hematocrit 38.9 % (39.0-51.0) Mean Corpuscular Volume 87.6 FL (80.0-100.0) Mean Corpuscular Hemoglobin 30.1 PG (27.0-34.0) Mean Corpuscular Hemoglobin Concent 34.3 % (32.0-36.0) Red Cell Distribution Width 13.6 % (11.6-17.2) Platelet Count 314 TH/MM3 (150-450) Mean Platelet Volume 6.9 FL (7.0-11.0) Neutrophils (%) (Auto) 74.6 % (16.0-70.0) Lymphocytes (%) (Auto) 15.0 % (9.0-44.0) Monocytes (%) (Auto) 7.7 % (0.0-8.0) Eosinophils (%) (Auto) 1.4 % (0.0-4.0) Basophils (%) (Auto) 1.3 % (0.0-2.0) Neutrophils # (Auto) 8.3 TH/MM3 (1.8-7.7) Lymphocytes # (Auto) 1.7 TH/MM3 (1.0-4.8) Monocytes # (Auto) 0.9 TH/MM3 (0-0.9) Eosinophils # (Auto) 0.2 TH/MM3 (0-0.4) Basophils # (Auto) 0.1 TH/MM3 (0-0.2) CBC Comment DIFF FINAL Differential Comment Urine Color YELLOW (YELLW/STRAW) Urine Turbidity CLEAR (CLEAR) Urine pH 5.5 (5.0-8.5) Urine Specific [place] 1.020 (1.002-1.035) Urine Protein NEG mg/dL (NEG-TRACE) Urine Glucose (UA) 100 mg/dL (NEG) Urine Ketones NEG mg/dL (NEG) Urine Occult Blood TRACE (NEG) Urine Nitrite NEG (NEG) Urine Bilirubin NEG (NEG) Urine Urobilinogen 0.2 MG/DL (LESS THAN Urine Leukocyte Esterase NEG (NEG) Urine RBC 0-3 /hpf (0-3) Urine WBC 0-2 /hpf (0-5) Urine Squamous Epithelial Cells 0-5 /hpf (0-5) Urine Bacteria NONE /hpf (NONE) Microscopic Urinalysis Comment CULT NOT INDICATED Blood Urea Nitrogen 10 MG/DL (7-18) Creatinine 1.10 MG/DL (0.60-1.30) Random Glucose 145 MG/DL (74-106) Total Protein 8.1 GM/DL (6.4-8.2) Albumin 3.9 GM/DL (3.4-5.0) Calcium Level 8.7 MG/DL (8.5-10.1) Alkaline Phosphatase 107 U/L (45-117) Aspartate Amino Transf (AST/SGOT) 14 U/L (15-37) Alanine Aminotransferase (ALT/SGPT) 14 U/L (12-78) Total Bilirubin 0.3 MG/DL (0.2-1.0) Sodium Level 133 MEQ/L (136-145) Potassium Level 3.9 MEQ/L (3.5-5.1) Chloride Level 100 MEQ/L (98-107) Carbon Dioxide Level 25.4 MEQ/L (21.0-32.0) Anion Gap 8 MEQ/L (5-15) Estimat Glomerular Filtration Rate 64 ML/MIN (>89) Total Creatine Kinase 82 U/L (39-308) Thyroid Stimulating Hormone 3rd Gen 0.694 uIU/ML (0.358-3.740) Hemoglobin A1c 7.3 % (4.3-6.0) Triglycerides Level 185 MG/DL (42-150) Cholesterol Level 267 MG/DL (120-200) LDL Cholesterol 191 MG/DL (0-99) HDL Cholesterol 39.3 MG/DL (40.0-60.0) Cholesterol/HDL Ratio 6.79 RATIO Erythrocyte Sedimentation Rate 28 mm/hr (0-20) Troponin I 0.77 NG/ML (0.02-0.05) 1.55 NG/ML (0.02-0.05) C-Reactive Protein 0.90 MG/DL (0.00-0.30) Vitamin B12 Level 393 PG/ML (193-986) Free Thyroxine 1.33 NG/DL (0.76-1.46) Rapid Plasma Reagin NON-REACTIVE (NON-REACTVE) Test 07/09/17 18:20 Troponin I 3.66 NG/ML (0.02-0.05) (Daya Brewster) Result Diagram: 07/08/17191907/08/171919 Imaging Last Impressions Brain MRI 07/09/17 1048 Signed Impressions: Service Date/Time: June 12:28 - CONCLUSION: 1. Moderate periventricular and subcortical white matter small vessel ischemic changes bilaterally. 2. 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 3. No acute infarct, acute hemorrhage, midline shift or extra axial fluid collections. Simon Sahu MD Head CT 07/08/171917 Signed Impressions: Service Date/Time: Saturday, July 08, 2017 20:18 - CONCLUSION: 1. Possible subacute or old small left frontal lobe infarct. White matter ischemic changes. Remote lacunar infarct right cerebellum. Lowell Parrish MD . (Daya Brewster) Patient/Family Conference Present at Family Conference: Spoke with daughter at length regarding palliative care focus and purpose. Daughter related history of present illness and hospital course to me in detail. Reviewed test results, images and answered questions regarding goals of care. She does wish him to be a DO NOT RESUSCITATE which has been entered. She does wish for him to have short-term rehab to maximize quality of life but when she returns home would like hospice services. Contact information was provided for [facility] hospice. She declines a hospice consultation at this time. . Family Conference Time (mins): 60 Family Conference Location: Consult Room Issues Discussed: * Palliative care role, purpose, approach * Additional medical, psychosocial, and spiritual history * Patients general health, functional status, and cognitive changes in the months leading up to the current hospitalization * Patient/family understanding of the current medical problems * Patient/family understanding of prognosis * Patients goals of care as best understood from advance directives and/or conversations and/or values * Current medical treatment options and benefits/burdens of those options * Likely scenarios comparing ongoing aggressive care with a transition to comfort measures only * Questions answered to the best of my ability * Palliative care contact information provided (Daya Brewster) Assessment and Plan Disease Oriented Problem List: (1) Paroxysmal atrial fibrillation (2) Cardiomyopathy (3) NSTEMI (non-ST elevated myocardial infarction) (4) DM (diabetes mellitus) (5) CAD (coronary artery disease) Symptom Scale: (1) Confusion 0-10 Scale: 10 (Oriented to self) (2) Agitation 0-10 Scale: 2 Pertinent Non-Medical Issues Psychosocial:He was born in [place], was from his of 57 years short time ago. 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 He has been living in [place] for the past 14 years, for the last year and a half with his daughter, since his . Spiritual: Hinduism ye, would accept branch lead visits. Legal: No legal issues noted. Ethical issues impacting care: No ethical issues noted. . Important Contacts Daughter: Audrey Cole . Prognosis His prognosis is guarded. He does have significant cardiac disease to include severe bilateral carotid stenosis, Coronary artery disease, atrial fibrillation , nonsustained ventricular tachycardia, chronic systolic heart failure with ejection fraction of 20-25% with an NSTEMI on admission. Given his new onset confusion, consideration of an embolic shower is in the differential. He is currently on Xarelto however is transitioning to Eliquis once the prescription has arrived from the mail-in pharmacy. He is at elevated risk for recurrent complications, recurrent hospitalizations and continued decline. . Code Status: No Code Plan PLAN: Legal decision maker: The patient is confused and not capacitated for decision-making. His daughter, Audrey, would be his proxy decision-maker per [place] statutes. Goals: Comfort oriented. CODE STATUS: DNR SYMPTOMS: * Confusion: This is a new onset with this admission. He was not previously confused but able to manage his own affairs and participate in decision-making. It is unknown at this time whether this will improve or worsen, has no certain cause has been found. Patient will be transferred to short-term rehab and it is at that time the daughter's intention to enroll him in hospice for at home services. * Agitation: He is currently not agitated but has been recommended Seroquel at a starting dose of 25 mg twice daily to be uptitrated as needed for recurrent or increased agitation. SUMMARY This is an 81-year-old male, who returns 82 tomorrow, admitted with new onset confusion, hallucinations and progressed to agitation. He remains confused but is not agitated. No stroke, urinary tract infection or significant metabolic abnormality was found in this workup. He has been evaluated by cardiology, neurology and psychiatry with no specific cause of this acute onset alteration in mental status found. He was found to have an NSTEMI on admission, raising the possibility of a cardiac embolic event given his severe carotid stenosis and arrhythmia history. He is a DO NOT RESUSCITATE status and the daughter is requesting rehabilitation services at [facility] and rehab prior to going home where she intends at this time, to enroll him for hospice services. He would be hospice appropriate when family goals are aligned. Palliative care will continue to follow the patient during hospital course as condition evolves, to assist patient/decision-maker with understanding of their medical conditions, weighing benefits/burdens of treatment options, for clarification of goals of treatment. Additionally will assist with any symptoms of palliative concern. . (Daya Brewster) Time Spent Time Periods: 11: 00-12: 00 2: 15-15: 00 Total Floor Time (mins): 105 Face to Face Time (mins): 60 >50% Counseling/Coord of Care: Yes (Daya Brewster) Thank you for the opportunity to participate in the care of Mr. Marshall. (Daya Brewster) Attestation To help prompt me to consider important information that might be impacting today's encounter and assessment, information from prior notes written by myself or my colleagues may have been "brought forward" into today's note. My signature on this note, however, is an attestation that I personally performed the exam, history, and/or decision-making noted today, and, unless otherwise indicated, the interactions with patient, family, and staff as well as the review of records all occurred today. I also attest that the listed assessment and stated plan reflect my best clinical judgment today based on the combination of historical information, prior notes, and today's exam/ interactions. When time spent is documented, it refers only to time spent today by the signer, or if indicated, combined time spent today by collaborating physician/nurse practitioner. . (Daya Brewster) Collaborating MD Comments Chart reviewed. Case discussed with palliative care EXTRUSION FORMER. Above EXTRUSION FORMER note reviewed and I concur. . (Ethan Kapadia MD) Daya Brewster Jul 10, 2017 14:16 Ethan Kapadia MD Jul 26, 2017 14:28
[2017-07-10 16:44] LABS: ANA SCREEN NEG (NEG)
--- NOTE | 2017-07-10 19:52 | EKG ---
Date Performed: 07/09/2017 Time Performed: 15:41:27 PTAGE: 81 years EKG: Sinus rhythm RIGHT BUNDLE BRANCH BLOCK LEFT ANTERIOR FASCICULAR BLOCK PROBABLE SEPTAL MYOCARDIAL INFARCTION CONSI RIGOBERTO ANTEROSEPTAL [place], AGE INDETERMINATE CONSIDER INFERIOR ISCHEMIA ABNORMAL ECG PREVIOUS TRACING : 07/08/2017 19.33 DOCTOR: Gerard Bonilla Interpretating Date/Time 07/10/2017 19:49:52
--- NOTE | 2017-07-10 19:54 | EKG ---
Date Performed: 07/09/2017 Time Performed: 18:15:24 PTAGE: 81 years EKG: Sinus rhythm RIGHT BUNDLE BRANCH BLOCK LEFT ANTERIOR FASCICULAR BLOCK SEPTAL MYOCARDIAL INFARCTION CONSIDER ANTER OSEPTAL [place], AGE INDETERMINATE CONSIDER INFEROLATERAL ISCHEMIA ABNORMAL ECG PREVIOUS TRACING : 07/09/2017 15.41 DOCTOR: Gerard Bonilla Interpretating Date/Time 07/10/2017 19:52:28
[2017-07-10] MEDS: NIACIN 500 MG EXTENDED RELEASE TAB PO SCH (20:35)
[2017-07-10] MEDS: ATORVASTATIN 40 MG TAB PO SCH (20:35)
[2017-07-10] MEDS: hydrOXYzine HCL 25 MG TAB PO SCH (20:35)
[2017-07-10] MEDS ORDERED: LORazepam 2 MG/ML VIAL IV PUSH ONE (22:45)
[2017-07-11] MEDS: LEVOTHYROXINE SODIUM 100 MCG TAB PO SCH (04:41)
[2017-07-11 07:47] LABS: AUTOMATED NEUTROPHIL # 12.8 TH/MM3 (1.8-7.7); BASOPHIL # 0.3 TH/MM3 (0-0.2); BASOPHIL % 1.9 % (0.0-2.0); EOSINOPHIL # 0.4 TH/MM3 (0-0.4); EOSINOPHIL % 2.4 % (0.0-4.0); HEMATOCRIT 44.2 % (39.0-51.0); HEMOGLOBIN 15.2 GM/DL (13.0-17.0); LYMPH % 14.6 % (9.0-44.0); LYMPHOCYTE # 2.5 TH/MM3 (1.0-4.8); MEAN CELL VOLUME 88.7 FL (80.0-100.0); MEAN CORPUSCULAR HEMOGLOBIN 30.5 PG (27.0-34.0); MEAN CORPUSCULAR HGB CONC 34.4 % (32.0-36.0); MEAN PLATELET VOLUME 7.5 FL (7.0-11.0); MONO % 6.5 % (0.0-8.0); MONOCYTE # 1.1 TH/MM3 (0-0.9); NEUT % 74.6 % (16.0-70.0); PLATELET COUNT 211 TH/MM3 (150-450); RED BLOOD COUNT 4.99 MIL/MM3 (4.50-5.90); RED CELL DISTRIBUTION WIDTH 13.9 % (11.6-17.2); WHITE BLOOD COUNT 17.1 TH/MM3 (4.0-11.0)
--- NOTE | 2017-07-11 07:52 | HHI.PR ---
Subjective Remarks Sleepy. In bed, he does not appear in acute distress. Less agitated. No acute events overnight. Pleasantly confused. Objective Vitals Vital Signs Date Time Temp Pulse Resp B/P (MAP) Pulse Ox O2 Delivery O2 Flow Rate FiO2 07/10/17 21:00 92 21 07/10/17 20:00 96.2 92 18 135/69 (91) 96 07/10/17 16:00 96.0 93 18 117/71 (86) 98 07/10/17 12:00 115 20 108/77 (87) 95 07/10/17 08:00 95.1 82 20 145/82 (103) 92 I/O 07/10/17 07/10/17 07/10/17 07/11/17 07/11/17 07/11/17 07:00 15:00 23:00 07:00 15:00 23:00 Intake Total 240 ml 160 ml 0 ml Balance 240 ml 160 ml 0 ml Intake Oral 240 ml 160 ml 0 ml # Voids 2 1 1 Result Diagram: 07/08/17 19207/11/17 0715 Imaging Last Impressions Brain MRI 07/09/17 1048 Signed Impressions: Service Date/Time: June 12:28 - CONCLUSION: 1. Moderate periventricular and subcortical white matter small vessel ischemic changes bilaterally. 2. 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 3. No acute infarct, acute hemorrhage, midline shift or extra axial fluid collections. Simon Sahu MD Head CT 07/08/17 1918 Signed Impressions: Service Date/Time: Saturday, July 08, 2017 20:18 - CONCLUSION: 1. Possible subacute or old small left frontal lobe infarct. White matter ischemic changes. Remote lacunar infarct right cerebellum. Lowell Parrish MD Objective Remarks GENERAL: This is a well-nourished, well-developed patient, in no apparent distress. Pleasantly confused. CARDIOVASCULAR: Regular rate and rhythm without murmurs, gallops, or rubs. RESPIRATORY: Clear to auscultation. Breath sounds equal bilaterally. No wheezes , rales, or rhonchi. GASTROINTESTINAL: Abdomen soft, non-tender, nondistended. No hepato-splenomegaly , or palpable masses. No guarding. MUSCULOSKELETAL: Extremities without clubbing, cyanosis, or edema. No joint tenderness, effusion, or edema noted. No calf tenderness. Negative Homans sign bilaterally. NEUROLOGICAL: Awake and alert. Cranial nerves II through XII intact. Motor and sensory grossly within normal limits. Five out of 5 muscle strength in all muscle groups. Normal speech. Procedures No procedures A/P Problem List: (1) Diabetes Mellitus Status: Chronic Permanent Comment: 03/2014: A1c-6.9 07/2013: A1c-6.9 Last Edited By: Candido Greene on Jul 26, 2014 08:49 (2) Hyperlipidemia associated with type 2 diabetes mellitus ICD Code: E11.69 - Hyperlipidemia associated with type 2 diabetes mellitus; E78.5 - Hyperlipidemia, unspecified Status: Chronic Permanent Comment: 03/2014: Trig-171, LDL-131, HDL-28 Last Edited By: Candido Greene on Apr 18, 2014 18:58 (3) Hypothyroidism ICD Code: E03.9 - Hypothyroidism Status: Chronic Permanent Comment: 03/2014: TSH-2.63, T4-1.11 Last Edited By: Candido Greene on Apr 18, 2014 18:57 (4) Coronary arteriosclerosis Status: Chronic (5) Atrial fibrillation with RVR ICD Code: I48.91 - Unspecified atrial fibrillation Status: Acute (6) Carotid artery stenosis ICD Code: I65.29 - Carotid artery stenosis Status: Acute Permanent Comment: 11/2013: US-b/l moderate plaquing with stenosis 50-69%. Last Edited By: Candido Greene on Nov 28, 2013 11:21 (7) TIA (transient ischemic attack) ICD Code: G45.9 - Transient cerebral ischemic attack, unspecified (8) Dehydration ICD Code: E86.0 - Dehydration Status: Acute (9) Depression ICD Code: F32.9 - Major depressive disorder, single episode, unspecified Status: Acute (10) Delirium ICD Code: R41.0 - Disorientation, unspecified (11) Unspecified psychosis ICD Code: F29 - Unspecified psychosis not due to a substance or known physiological condition (12) CVA (cerebral vascular accident) ICD Code: I63.9 - Cerebral infarction, unspecified Status: Acute Assessment and Plan Poss subacute left frontal infarction with behavioral changes Bilateral carotid stenosis Visual hallucinations/psychosis CT reports from 06/23/17 [facility] reviewed: Symmetric critical stenosis in the mid common carotid artery bilaterally 80-90% with flow- limiting. The right stenosis is associated with significant ulceration. None ostial stenosis of the right internal carotid artery 70-80%. Occlusion of the right vertebral. Neurochecks Consult neurology. Seen by Dr Herr , check MRI, EEG, additional work up per neuro . also thinks is sleep deprivation, plan for sleep chart tonight . Family however is requesting for 2nd opinion for neurology. Dr Herr notified. Place consult neuro for 2nd opinion. Seen by DR Araujo neurology as well. Consult vascular surgeon for evaluation, conservative management Monitor vital signs Keep normoglycemic normotensive Start seroquel. Consult psychiatry, appreciate recommendations add zyprexa PRN for agitation Elevated troponin 0/6--> 1.55--> 3 trending up . Patient denies any chest pain. Discussed with Dr Das his cardiology Dr Will evaluate patient. Family decided for conservative management. Add metoprolol 12.4 mg po bid Chronic a-fib Currently rate controlled Diltiazem 120mg ER daily and Xarelto 20mg daily at home. Given current recommendation by cardiology for Metoprolol 25mg TID and current heart rate, will hold home diltiazem pending cardiology's recommendations. On Xarelto HTN (hypertension) Currently 159/77. Continue NICKEL PLATER lisinopril 10mg daily Clonidine 0.1mg q6hrs PRN BP >180/100 Depression Unclear if patient is on 50, 100, or 150mg of Zoloft. Review of records show 100mg was most recently prescribed. Will prescribe this amount and could increase to 150 if it is revealed that this is the patient's home dose. HLD (hyperlipidemia) Continue NICKEL PLATER atorvastatin 80mg daily DM2 (diabetes mellitus) Hold metformin. Accuchecks, monitor BS. Low dose ISS. Tobacco dependence, continuous Counselled regarding cessation. Hypothyroidism Continue NICKEL PLATER levothyroxine 100 g daily GERD History of GERD could be contributing to patient's discomfort. Protonix 40mg daily DVT ppx on xarelto CODE STATUS: DNR Discussed with the patient, nurse Plan to DC to SNF Problem Qualifiers (1) CVA (cerebral vascular accident): Qualified Codes: I63.9 - Cerebral infarction, unspecified Mary Ross MD Jul 11, 2017 07:52
[2017-07-11 08:00] VITALS: BP 139/76; PULSE 66; RESP 20; TEMP 98.2; O2SAT 93
[2017-07-11] MEDS: INSULIN ASPART SUPPLEMENTAL SCALE SQ SCH ×4 (08:00→21:00)
[2017-07-11 08:05] LABS: BICARBONATE 29.2 MEQ/L (21.0-32.0); CALCIUM 9.6 MG/DL (8.5-10.1); CREATININE 1.2 MG/DL (0.60-1.30)
[2017-07-11] MEDS: PARoxetine HCL 20 MG TAB PO SCH (09:00)
[2017-07-11] MEDS: SODIUM CHLORIDE 0.9% FLUSH 10 ML FLUSH IV FLUSH SCH ×2 (09:00→20:31)
[2017-07-11] MEDS: LORATADINE 10 MG TAB PO SCH (09:00)
[2017-07-11] MEDS: QUEtiapine FUMARATE 25 MG TAB PO SCH ×2 (09:58→21:00)
[2017-07-11] MEDS: RIVAROXABAN 20 MG TAB PO SCH (09:58)
[2017-07-11] MEDS: metFORMIN HCL 850 MG TAB PO SCH (09:58)
[2017-07-11] MEDS: DILTIAZEM-CD 240 MG CAP ER PO SCH (09:58)
[2017-07-11] MEDS: PANTOPRAZOLE SOD 40 MG DELAYED RELEASE TAB PO SCH (09:59)
[2017-07-11] MEDS: METOPROLOL TARTRATE 25 MG TAB PO SCH ×2 (09:59→21:00)
[2017-07-11] MEDS: LISINOPRIL 10 MG TAB PO SCH (10:00)
[2017-07-11 12:00] VITALS: BP 146/82; PULSE 71; RESP 20; TEMP 99; O2SAT 97
[2017-07-11 12:13] VITALS: O2SAT 98
[2017-07-11] MEDS: MORPHINE SULFATE 2 MG/ML SYRINGE IV PUSH PRN (12:59)
[2017-07-11] MEDS: LORazepam 2 MG/ML VIAL IV PUSH PRN ×2 (12:59→23:44)
[2017-07-11 16:00] VITALS: BP 134/71; PULSE 66; RESP 20; TEMP 98.5; O2SAT 99
[2017-07-11 20:00] VITALS: BP 180/79; PULSE 87; RESP 17; TEMP 96.3; O2SAT 97
[2017-07-11] MEDS: NIACIN 500 MG EXTENDED RELEASE TAB PO SCH (20:32)
[2017-07-11 21:00] VITALS: O2SAT 98
[2017-07-11] MEDS: hydrOXYzine HCL 25 MG TAB PO SCH (21:00)
[2017-07-11] MEDS: ATORVASTATIN 40 MG TAB PO SCH (21:00)
[2017-07-12] MEDS: LEVOTHYROXINE SODIUM 100 MCG TAB PO SCH (03:27)
[2017-07-12] MEDS: ISOSORBIDE MONONITRATE 30 MG CR TAB (IMDUR) PO SCH (06:18)
[2017-07-12 08:00] VITALS: BP 124/80; PULSE 86; RESP 20; TEMP 97.4; O2SAT 93
[2017-07-12] MEDS: INSULIN ASPART SUPPLEMENTAL SCALE SQ SCH ×4 (08:00→20:11)
[2017-07-12] MEDS: LORATADINE 10 MG TAB PO SCH (09:00)
[2017-07-12] MEDS: DILTIAZEM-CD 240 MG CAP ER PO SCH (09:00)
[2017-07-12] MEDS: METOPROLOL TARTRATE 25 MG TAB PO SCH ×2 (09:00→20:11)
[2017-07-12] MEDS: QUEtiapine FUMARATE 25 MG TAB PO SCH ×2 (09:00→20:11)
[2017-07-12] MEDS: LISINOPRIL 10 MG TAB PO SCH (09:00)
[2017-07-12] MEDS: PANTOPRAZOLE SOD 40 MG DELAYED RELEASE TAB PO SCH (09:00)
[2017-07-12] MEDS: PARoxetine HCL 20 MG TAB PO SCH (09:00)
[2017-07-12] MEDS: RIVAROXABAN 20 MG TAB PO SCH (09:00)
[2017-07-12] MEDS: metFORMIN HCL 850 MG TAB PO SCH (09:00)
[2017-07-12] MEDS: SODIUM CHLORIDE 0.9% FLUSH 10 ML FLUSH IV FLUSH SCH ×2 (09:00→20:11)
--- NOTE | 2017-07-12 09:11 | HHI.PR ---
Subjective Remarks Patient is in bed he appears confused however she is not agitated. Per nurse patient is not able to swallow the pills in the morning. N.p.o. And will swallow evaluation. Will ask again speech therapy to reevaluate patient. He did pass the swallow evaluation 2 days ago. Patient does not appear in acute distress. Has no concerns at this time. Objective Vitals Vital Signs Date Time Temp Pulse Resp B/P (MAP) Pulse Ox O2 Delivery O2 Flow Rate FiO2 07/12/17 08:00 97.4 86 20 124/80 (95) 93 07/12/17 07:36 Nasal Cannula 2.00 07/11/17 21:00 98 Nasal Cannula 2.00 07/11/17 20:00 96.3 87 17 180/79 (112) 97 07/11/17 16:00 98.5 66 20 134/71 (92) 99 07/11/17 13:04 20 07/11/17 12:13 98 Nasal Cannula 3.00 07/11/17 12:00 99.0 71 20 146/82 (103) 97 I/O 07/11/17 07/11/17 07/11/17 07/12/17 07/12/17 07/12/17 07:00 15:00 23:00 07:00 15:00 23:00 Intake Total 0 ml 880 ml 0 ml Balance 0 ml 880 ml 0 ml Intake Oral 0 ml 880 ml 0 ml # Voids 1 2 2 Result Diagram: 07/11/17 0715 07/11/17 0715 Imaging Last Impressions Brain MRI 07/09/17 1048 Signed Impressions: Service Date/Time: June 12:28 - CONCLUSION: 1. Moderate periventricular and subcortical white matter small vessel ischemic changes bilaterally. 2. 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 3. No acute infarct, acute hemorrhage, midline shift or extra axial fluid collections. Simon Sahu MD Head CT 07/08/17 191 Signed Impressions: Service Date/Time: Saturday, July 08, 2017 20:18 - CONCLUSION: 1. Possible subacute or old small left frontal lobe infarct. White matter ischemic changes. Remote lacunar infarct right cerebellum. Lowell Parrish MD Objective Remarks GENERAL: This is a well-nourished, well-developed patient, in no apparent distress. Pleasantly confused. CARDIOVASCULAR: Regular rate and rhythm without murmurs, gallops, or rubs. RESPIRATORY: Clear to auscultation. Breath sounds equal bilaterally. No wheezes , rales, or rhonchi. GASTROINTESTINAL: Abdomen soft, non-tender, nondistended. No hepato-splenomegaly , or palpable masses. No guarding. MUSCULOSKELETAL: Extremities without clubbing, cyanosis, or edema. No joint tenderness, effusion, or edema noted. No calf tenderness. Negative Homans sign bilaterally. NEUROLOGICAL: Awake and alert. Cranial nerves II through XII intact. Motor and sensory grossly within normal limits. Five out of 5 muscle strength in all muscle groups. Normal speech. Procedures No procedures A/P Problem List: (1) Diabetes Mellitus Status: Chronic Permanent Comment: 03/2014: A1c-6.9 07/2013: A1c-6.9 Last Edited By: Candido Greene on Jul 26, 2014 08:49 (2) Hyperlipidemia associated with type 2 diabetes mellitus ICD Code: E11.69 - Hyperlipidemia associated with type 2 diabetes mellitus; E78.5 - Hyperlipidemia, unspecified Status: Chronic Permanent Comment: 03/2014: Trig-171, LDL-131, HDL-28 Last Edited By: Candido Greene on Apr 18, 2014 18:58 (3) Hypothyroidism ICD Code: E03.9 - Hypothyroidism Status: Chronic Permanent Comment: 03/2014: TSH-2.63, T4-1.11 Last Edited By: Candido Greene on Apr 18, 2014 18:57 (4) Coronary arteriosclerosis Status: Chronic (5) Atrial fibrillation with RVR ICD Code: I48.91 - Unspecified atrial fibrillation Status: Acute (6) Carotid artery stenosis ICD Code: I65.29 - Carotid artery stenosis Status: Acute Permanent Comment: 11/2013: US-b/l moderate plaquing with stenosis 50-69%. Last Edited By: Candido Greene on Nov 28, 2013 11:21 (7) TIA (transient ischemic attack) ICD Code: G45.9 - Transient cerebral ischemic attack, unspecified (8) Dehydration ICD Code: E86.0 - Dehydration Status: Acute (9) Depression ICD Code: F32.9 - Major depressive disorder, single episode, unspecified Status: Acute (10) Delirium ICD Code: R41.0 - Disorientation, unspecified (11) Unspecified psychosis ICD Code: F29 - Unspecified psychosis not due to a substance or known physiological condition (12) CVA (cerebral vascular accident) ICD Code: I63.9 - Cerebral infarction, unspecified Status: Acute Assessment and Plan Poss subacute left frontal infarction with behavioral changes Bilateral carotid stenosis Visual hallucinations/psychosis CT reports from 06/23/17 [facility] reviewed: Symmetric critical stenosis in the mid common carotid artery bilaterally 80-90% with flow- limiting. The right stenosis is associated with significant ulceration. None ostial stenosis of the right internal carotid artery 70-80%. Occlusion of the right vertebral. Neurochecks Consult neurology. Seen by Dr Herr and Dr Valderrama neurology. MRI, EEG, reviewed, additional work up per neuro . also thinks is sleep deprivation, plan for sleep chart tonight . Family however is requesting for 2nd opinion for neurology. Dr Herr notified. Place consult neuro for 2nd opinion. Seen by DR Araujo neurology as well. Consult vascular surgeon for evaluation, conservative management Monitor vital signs Keep normoglycemic normotensive Start seroquel. Consult psychiatry, appreciate recommendations add zyprexa PRN for agitation Reconsult speech therapy for swallow evaluation Elevated troponin 0/6--> 1.55--> 3 trending up . Patient denies any chest pain. Discussed with Dr Das his cardiology Dr Will evaluate patient. Family decided for conservative management. Add metoprolol 12.4 mg po bid Chronic a-fib Currently rate controlled Diltiazem 120mg ER daily and Xarelto 20mg daily at home. Given current recommendation by cardiology for Metoprolol 25mg TID and current heart rate, will hold home diltiazem pending cardiology's recommendations. On Xarelto HTN (hypertension) Currently 159/77. Continue [employer]ENT lisinopril 10mg daily Clonidine 0.1mg q6hrs PRN BP >180/100 Depression Unclear if patient is on 50, 100, or 150mg of Zoloft. Review of records show 100mg was most recently prescribed. Will prescribe this amount and could increase to 150 if it is revealed that this is the patient's home dose. HLD (hyperlipidemia) Continue [employer]ENT atorvastatin 80mg daily DM2 (diabetes mellitus) Hold metformin. Accuchecks, monitor BS. Low dose ISS. Tobacco dependence, continuous Counselled regarding cessation. Hypothyroidism Continue [employer]ENT levothyroxine 100 g daily GERD History of GERD could be contributing to patient's discomfort. Protonix 40mg daily DVT ppx on xarelto CODE STATUS: DNR Discussed with the patient, nurse Plan to DC to SNF Problem Qualifiers (1) CVA (cerebral vascular accident): Qualified Codes: I63.9 - Cerebral infarction, unspecified Mary Ross MD Jul 12, 2017 09:11
[2017-07-12] MEDS: LORazepam 2 MG/ML VIAL IV PUSH PRN ×2 (09:54→18:47)
[2017-07-12 12:00] VITALS: BP 112/99; PULSE 107; RESP 20; TEMP 98.3; O2SAT 92
[2017-07-12] MEDS ORDERED: LACTOBACILLUS ACIDOPHILUS TAB PO ONE (14:45)
[2017-07-12] MEDS: AMOXICILLIN/CLAVULANATE K 875 MG TAB PO SCH ×2 (14:45→20:11)
[2017-07-12] MEDS ORDERED: HYOSCYAMINE 0.125 MG TAB PO PRN (14:45)
[2017-07-12 16:00] VITALS: BP 127/82; PULSE 102; RESP 24; TEMP 100.3; O2SAT 96
[2017-07-12 16:06] LABS: CALCIUM 9.4 MG/DL (8.5-10.1)
[2017-07-12 16:07] LABS: BICARBONATE 23.5 MEQ/L (21.0-32.0)
[2017-07-12 16:15] LABS: AUTOMATED NEUTROPHIL # 15.5 TH/MM3 (1.8-7.7); BASOPHIL # 0.7 TH/MM3 (0-0.2); BASOPHIL % 3.9 % (0.0-2.0); EOSINOPHIL % 0.1 % (0.0-4.0); HEMATOCRIT 41.6 % (39.0-51.0); HEMOGLOBIN 14.1 GM/DL (13.0-17.0); LYMPH % 4.4 % (9.0-44.0); LYMPHOCYTE # 0.8 TH/MM3 (1.0-4.8); MEAN CELL VOLUME 87.2 FL (80.0-100.0); MEAN CORPUSCULAR HEMOGLOBIN 29.6 PG (27.0-34.0); MEAN PLATELET VOLUME 7.3 FL (7.0-11.0); MONO % 7.2 % (0.0-8.0); MONOCYTE # 1.3 TH/MM3 (0-0.9); NEUT % 84.4 % (16.0-70.0); PLATELET COUNT 322 TH/MM3 (150-450); RED BLOOD COUNT 4.77 MIL/MM3 (4.50-5.90); RED CELL DISTRIBUTION WIDTH 13.5 % (11.6-17.2); WHITE BLOOD COUNT 18.3 TH/MM3 (4.0-11.0)
--- NOTE | 2017-07-12 16:53 | RADRPT ---
EXAM DATE/TIME: 07/12/2017 16:34 [facility] COMPARISON: CHEST SINGLE AP, March 18, 2015, 4:10. CHEST PA & LAT, August 20, 2015, 16:48. CHEST SINGLE AP, Mar, 21:03. INDICATIONS : Cough. Congestion. MEDICAL HISTORY : Cardiovascular disease. Cerebrovascular disease. Stroke. SURGICAL HISTORY : CABG. ENCOUNTER: Initial ACUITY: 3 days PAIN SCORE: Non-responsive. LOCATION: Bilateral chest FINDINGS: Patient is status post sternotomy. The heart size is normal. There is a stable calcified mass in the right perihilar region and calcified lymph nodes in the right hilar region. The lungs are otherwise c lear. No effusion is seen. CONCLUSION: No acute disease. Minesh Talley MD on July 12, 2017 at 16:50 Board Certified Radiologist. This report was verified electronically.
[2017-07-12] MEDS ORDERED: ACETAMINOPHEN 1000 MG/100 ML 65 ML IV ONE (18:15)
[2017-07-12] MEDS: SODIUM CHLOR 0.9% 1000 ML INJ 1,000 ML IV SCH (19:25)
[2017-07-12 20:00] VITALS: BP 165/78; PULSE 111; O2SAT 94
[2017-07-12] MEDS: ATORVASTATIN 40 MG TAB PO SCH (20:11)
[2017-07-12] MEDS: hydrOXYzine HCL 25 MG TAB PO SCH (20:11)
[2017-07-12] MEDS: LACTOBACILLUS ACIDOPHILUS TAB PO SCH (20:11)
[2017-07-12] MEDS: NIACIN 500 MG EXTENDED RELEASE TAB PO SCH (20:11)
[2017-07-12] MEDS: LEVOFLOXACIN 750 MG PREMIX INJ 150 ML IV SCH (21:45)
[2017-07-13] VITALS (7 sets, daily range): BP systolic 114–163; BP diastolic 60–83; PULSE 96–151; RESP 20–25; TEMP 97–98.7; O2SAT 94–98
[2017-07-13] MEDS ORDERED: ACETAMINOPHEN 1000 MG/100 ML 100 ML IV PRN (02:00)
[2017-07-13] MEDS: LEVOTHYROXINE SODIUM 100 MCG TAB PO SCH (04:23)
[2017-07-13] MEDS: ISOSORBIDE MONONITRATE 30 MG CR TAB (IMDUR) PO SCH (04:23)
[2017-07-13] MEDS: LORazepam 2 MG/ML VIAL IV PUSH PRN ×3 (05:40→22:26)
[2017-07-13] MEDS: SODIUM CHLOR 0.9% 1000 ML INJ 1,000 ML IV SCH ×2 (07:42→18:18)
[2017-07-13] MEDS: INSULIN ASPART SUPPLEMENTAL SCALE SQ SCH ×4 (07:46→21:00)
[2017-07-13] MEDS: SODIUM CHLORIDE 0.9% FLUSH 10 ML FLUSH IV FLUSH SCH ×2 (08:47→21:00)
[2017-07-13] MEDS: DILTIAZEM-CD 240 MG CAP ER PO SCH (08:47)
[2017-07-13] MEDS: LACTOBACILLUS ACIDOPHILUS TAB PO SCH ×2 (08:47→21:00)
[2017-07-13] MEDS: LORATADINE 10 MG TAB PO SCH (08:47)
[2017-07-13] MEDS: AMOXICILLIN/CLAVULANATE K 875 MG TAB PO SCH ×2 (08:47→21:00)
[2017-07-13] MEDS: metFORMIN HCL 850 MG TAB PO SCH (08:47)
[2017-07-13] MEDS: PARoxetine HCL 20 MG TAB PO SCH (08:48)
[2017-07-13] MEDS: PANTOPRAZOLE SOD 40 MG DELAYED RELEASE TAB PO SCH (08:48)
[2017-07-13] MEDS: METOPROLOL TARTRATE 25 MG TAB PO SCH ×2 (08:48→21:00)
[2017-07-13] MEDS: QUEtiapine FUMARATE 25 MG TAB PO SCH ×2 (08:48→21:00)
[2017-07-13] MEDS: LISINOPRIL 10 MG TAB PO SCH (08:48)
[2017-07-13] MEDS: RIVAROXABAN 20 MG TAB PO SCH (08:49)
[2017-07-13] MEDS ORDERED: VANCOMYCIN INJ 1,000 MG in SODIUM CHLOR 0.9% 250 ML INJ 250 ML IV SCH (09:00)
[2017-07-13] MEDS ORDERED: Vancomycin Consult Pharmacy 1 EA OTHER SCH (09:00)
[2017-07-13] MEDS: AZITHROMYCIN INJ 500 MG in SODIUM CHLOR 0.9% 250 ML INJ 250 ML IV SCH (10:15)
[2017-07-13] MEDS: PIPERACIL-TAZO 4.5 GM PREMIX 100 ML IV SCH ×3 (12:30→22:25)
[2017-07-13] MEDS: VANCOMYCIN INJ 1,250 MG in SODIUM CHLOR 0.9% 250 ML INJ 250 ML IV SCH (13:09)
--- NOTE | 2017-07-13 17:18 | HHI.PR ---
Subjective Remarks Patient has had a worsening of his swallowing ability. This could be related to prior encephalopathy. Encephalopathy could've been related to infection related to aspiration. If no improvement is seen will consider reimaging of brain to evaluate for CVA. Swallow test was performed again today and he failed. He is currently not a candidate for discharge to assisted facility as previously planned. At this point he would need a PEG tube. This will be discussed with the family prior to decision making about discharge. Objective Vital Signs Date Time Temp Pulse Resp B/P (MAP) Pulse Ox O2 Delivery O2 Flow Rate FiO2 07/13/17 12:00 97.8 144 24 128/60 (82) 94 07/13/17 09:00 95 Nasal Cannula 2.00 07/13/17 08:00 97.0 151 24 115/74 (88) 96 07/13/17 00:00 97.1 148 25 114/73 (87) 97 07/12/17 20:00 111 165/78 (107) 07/12/17 20:00 94 Nasal Cannula 2.00 I/O 07/12/17 07/12/17 07/12/17 07/13/17 07/13/17 07/13/17 07:00 15:00 23:00 07:00 15:00 23:00 Intake Total 0 ml 0 ml Balance 0 ml 0 ml Intake Oral 0 ml 0 ml # Voids 2 2 1 Result Diagram: 07/12/17 1545 07/12/17 1545 Objective Remarks GENERAL: NAD, A&Ox3 HEAD: Normocephalic. NECK: Supple, trachea midline. No lymphadenopathy. EYES: No scleral icterus. No injection or drainage. CARDIOVASCULAR: Regular rate and rhythm without murmurs, gallops, or rubs. RESPIRATORY: Breath sounds equal bilaterally. No accessory muscle use. GASTROINTESTINAL: Abdomen soft, non-tender, nondistended. MUSCULOSKELETAL: No cyanosis, or edema. SKIN: Warm and dry. NEURO: No focal neurological deficitis. A/P Problem List: (1) Dysphasia ICD Code: R47.02 - Dysphasia (2) CVA (cerebral vascular accident) ICD Code: I63.9 - Cerebral infarction, unspecified Status: Acute Assessment and Plan 82-year-old male admitted secondary to suspected CVA, with findings of encephalopathy and dysphagia, possible aspiration Fever Leukocytosis Suspected aspiration Patient started on vancomycin, Levaquin, and azithromycin Continue oxygen as needed Chest x-ray ordered Patient failed today swallow study Nothing by mouth for now Bilateral carotid stenosis Patient is not a candidate for endarterectomy Follow clinically Increased risk for stroke in the setting Encephalopathy, metabolic Visual hallucinations Psychosis May be related to sedatives Sedatives are being avoided Possible contribution from infection Antibiotics started as above Monitor for improvement Consider further imaging of brain if stroke become suspect Neurology following Continue Seroquel Elevated troponin Conservative therapy Current urology following Chronic A. 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
--- NOTE | 2017-07-13 17:37 | HHI.HCPN ---
Reason for visit a. To assist with evaluation and management of symptoms including: Confusion , agitation b. To assist medical decision maker(s) with: better understanding of current medical conditions; weighing benefits/burdens of medical treatment options; making medical treatment decisions. (Daya Brewster) Subjective/Interval History Patient seen to follow-up on symptom management and goals of care. This is an elderly, confused man lying in bed mildly agitated, unrestrained, in no acute distress. He is receiving antibiotics via IV. He is not combative at this time. He underwent speech evaluation this morning and failed all consistencies. He is n.p.o. pending family decision regarding feeding tube. Telemetry review shows he is in atrial fibrillation, now with rapid ventricular response with heart rates up to 150. He had previously been on Cardizem CD, however that is been held due to his n.p.o. status. Clinical course * Laboratory: WBC 18.3, hemoglobin 14.1, hematocrit 41.6, platelets 322, sodium 140, potassium 3.7, BUN 24, creatinine 1.00, random glucose 167. * Microbiology: Blood cultures negative 1 day. * Radiology: 07/12 chest x-ray shows no acute disease. . (Daya Brewster) Advance Directives Living Will: Never completed Health Care Surrogate: Never completed Durable Power of Market Basket Maker: Never completed (Daya Brewster) Objective Vital Signs Date Time Temp Pulse Resp B/P (MAP) Pulse Ox O2 Delivery O2 Flow Rate FiO2 07/13/17 12:00 97.8 144 24 128/60 (82) 94 07/13/17 09:00 95 Nasal Cannula 2.00 07/13/17 08:00 97.0 151 24 115/74 (88) 96 07/13/17 00:00 97.1 148 25 114/73 (87) 97 07/12/17 20:00 111 165/78 (107) 07/12/17 20:00 94 Nasal Cannula 2.00 Physical Exam CONSTITUTIONAL/GENERAL: This is an adequately nourished patient, in no apparent distress. TUBES/LINES/DRAINS: PIV left forearm SKIN: No jaundice, rashes, or lesions. Ecchymoses on upper extremities. No wounds seen anteriorly. Skin temperature appropriate. Not diaphoretic. CARDIOVASCULAR: S1, S2, irregular rhythm, tachycardic rate without rub murmur or gallop. Diminished peripheral pulses. RESPIRATORY/CHEST: Coarse breath sounds with right upper lobe wheezes, scattered rhonchi. GASTROINTESTINAL: Abdomen soft, non-tender, nondistended. No hepato-splenomegaly , or palpable masses. No guarding. Bowel sounds present. GENITOURINARY: Without palpable bladder distension. MUSCULOSKELETAL: Extremities without clubbing, cyanosis, or edema. No joint tenderness or effusion noted. No calf tenderness. No mottling or clubbing. Equal strength in all 4 extremities. NEUROLOGICAL: Awake, confused, arouses to calling his name, oriented to self only. PSYCHIATRIC: Mildly agitated. . (Daya Brewster) Diagnostic Tests Laboratory Laboratory Tests Test 07/11/17 07:15 07/12/17 15:45 White Blood Count 17.1 TH/MM3 (4.0-11.0) 18.3 TH/MM3 (4.0-11.0) Red Blood Count 4.99 MIL/MM3 (4.50-5.90) 4.77 MIL/MM3 (4.50-5.90) Hemoglobin 15.2 GM/DL (13.0-17.0) 14.1 GM/DL (13.0-17.0) Hematocrit 44.2 % (39.0-51.0) 41.6 % (39.0-51.0) Mean Corpuscular Volume 88.7 FL (80.0-100.0) 87.2 FL (80.0-100.0) Mean Corpuscular Hemoglobin 30.5 PG (27.0-34.0) 29.6 PG (27.0-34.0) Mean Corpuscular Hemoglobin Concent 34.4 % (32.0-36.0) 34.0 % (32.0-36.0) Red Cell Distribution Width 13.9 % (11.6-17.2) 13.5 % (11.6-17.2) Platelet Count 211 TH/MM3 (150-450) 322 TH/MM3 (150-450) Mean Platelet Volume 7.5 FL (7.0-11.0) 7.3 FL (7.0-11.0) Neutrophils (%) (Auto) 74.6 % (16.0-70.0) 84.4 % (16.0-70.0) Lymphocytes (%) (Auto) 14.6 % (9.0-44.0) 4.4 % (9.0-44.0) Monocytes (%) (Auto) 6.5 % (0.0-8.0) 7.2 % (0.0-8.0) Eosinophils (%) (Auto) 2.4 % (0.0-4.0) 0.1 % (0.0-4.0) Basophils (%) (Auto) 1.9 % (0.0-2.0) 3.9 % (0.0-2.0) Neutrophils # (Auto) 12.8 TH/MM3 (1.8-7.7) 15.5 TH/MM3 (1.8-7.7) Lymphocytes # (Auto) 2.5 TH/MM3 (1.0-4.8) 0.8 TH/MM3 (1.0-4.8) Monocytes # (Auto) 1.1 TH/MM3 (0-0.9) 1.3 TH/MM3 (0-0.9) Eosinophils # (Auto) 0.4 TH/MM3 (0-0.4) 0.0 TH/MM3 (0-0.4) Basophils # (Auto) 0.3 TH/MM3 (0-0.2) 0.7 TH/MM3 (0-0.2) CBC Comment DIFF FINAL DIFF FINAL Differential Comment Blood Urea Nitrogen 19 MG/DL (7-18) 24 MG/DL (7-18) Creatinine 1.20 MG/DL (0.60-1.30) 1.00 MG/DL (0.60-1.30) Random Glucose 136 MG/DL (74-106) 167 MG/DL (74-106) Calcium Level 9.6 MG/DL (8.5-10.1) 9.4 MG/DL (8.5-10.1) Sodium Level 139 MEQ/L (136-145) 140 MEQ/L (136-145) Potassium Level 4.3 MEQ/L (3.5-5.1) 3.7 MEQ/L (3.5-5.1) Chloride Level 104 MEQ/L (98-107) 106 MEQ/L (98-107) Carbon Dioxide Level 29.2 MEQ/L (21.0-32.0) 23.5 MEQ/L (21.0-32.0) Anion Gap 6 MEQ/L (5-15) 11 MEQ/L (5-15) Estimat Glomerular Filtration Rate 58 ML/MIN (>89) 72 ML/MIN (>89) (Daya Brewster) Result Diagram: 07/12/17 1545 07/12/17 1545 Microbiology Microbiology Date/Time Source Procedure Growth Status 07/12/17 15:48 Blood Peripheral Aerobic Blood Culture - Preliminary NO GROWTH IN 1 DAY Resulted 07/12/17 15:48 Blood Peripheral Anaerobic Blood Culture - Preliminary NO GROWTH IN 1 DAY Resulted 07/12/17 15:45 Blood Peripheral Aerobic Blood Culture - Preliminary NO GROWTH IN 1 DAY Resulted 07/12/17 15:45 Blood Peripheral Anaerobic Blood Culture - Preliminary NO GROWTH IN 1 DAY Resulted Imaging Last Impressions Chest X-Ray 07/12/17 0000 Signed Impressions: Service Date/Time: Wednesday, July 12, 2017 16:34 - CONCLUSION: No acute disease. Minesh Talley MD Brain MRI 07/09/17 1048 Signed Impressions: Service Date/Time: June 12:28 - CONCLUSION: 1. Moderate periventricular and subcortical white matter small vessel ischemic changes bilaterally. 2. 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 3. No acute infarct, acute hemorrhage, midline shift or extra axial fluid collections. Simon Sahu MD Head CT 07/08/17 1918 Signed Impressions: Service Date/Time: Saturday, July 08, 2017 20:18 - CONCLUSION: 1. Possible subacute or old small left frontal lobe infarct. White matter ischemic changes. Remote lacunar infarct right cerebellum. Lowell Parrish MD (Daya Brewster) Assessment and Plan Disease Oriented Problem List: (1) Paroxysmal atrial fibrillation (2) Cardiomyopathy (3) NSTEMI (non-ST elevated myocardial infarction) (4) DM (diabetes mellitus) (5) CAD (coronary artery disease) Symptom Scale: (1) Confusion 0-10 Scale: 10 (Oriented to self) (2) Agitation 0-10 Scale: 2 Pertinent Non-Medical Issues Psychosocial:He was born in [place], was from his of 57 years short time ago. 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 He has been living in [place] for the past 14 years, for the last year and a half with his daughter, since his . Spiritual: Christianity ye, would accept diploma pharmacy technician visits. Legal: No legal issues noted. Ethical issues impacting care: No ethical issues noted. . Important Contacts Daughter: Audrey Cole . Prognosis His prognosis is guarded. He does have significant cardiac disease to include severe bilateral carotid stenosis, Coronary artery disease, atrial fibrillation , nonsustained ventricular tachycardia, chronic systolic heart failure with ejection fraction of 20-25% with an NSTEMI on admission. Given his new onset confusion, consideration of an embolic shower is in the differential. He is currently on Xarelto however is transitioning to Eliquis once the prescription has arrived from the mail-in pharmacy. He is at elevated risk for recurrent complications, recurrent hospitalizations and continued decline. . Code Status: No Code Plan PLAN: Legal decision maker: The patient is confused and not capacitated for decision-making. His daughter, Audrey, would be his proxy decision-maker per [place] statutes. Goals: Comfort oriented. CODE STATUS: DNR SYMPTOMS: * Confusion: This is a new onset with this admission. He was not previously confused but able to manage his own affairs and participate in decision-making. It is unknown at this time whether this will improve or worsen, has no certain cause has been found. MRI of the brain showed no stroke. Within the differential is aspiration pneumonia or delirium. This was acute onset on the day of admission. Previously the patient had been independent with ADLs and participating in family activities. * Agitation: He is slightly agitated, but now out of restraints. He had been receiving Seroquel 25 mg twice daily, however is now n.p.o. due to gross aspiration. He does respond well to Ativan and would recommend low-dose Ativan for agitation. * Fever: He developed a temperature of 100.3 yesterday afternoon and blood cultures were drawn which have been negative. As he has been found to be aspirating, this is suspicious for aspiration pneumonia and Dr. Simon has initiated broad-spectrum antibiotics to include Zosyn, azithromycin, vancomycin and Levaquin. He had previously been taking Augmentin, however due to his n.p.o. status that has been held. He has been coughing with thick secretions and has required NT suctioning through the day. Would recommend sputum culture with next NT suction and initiating IV Cardizem for rate control, as he is unable to swallow pills. Palliative care will continue to follow the patient during hospital course as condition evolves, to assist patient/decision-maker with understanding of their medical conditions, weighing benefits/burdens of treatment options, for clarification of goals of treatment. Additionally will assist with any symptoms of palliative concern. . (Daya Brewster) Attestation To help prompt me to consider important information that might be impacting today's encounter and assessment, information from prior notes written by myself or my colleagues may have been "brought forward" into today's note. My signature on this note, however, is an attestation that I personally performed the exam, history, and/or decision-making noted today, and, unless otherwise indicated, the interactions with patient, family, and staff as well as the review of records all occurred today. I also attest that the listed assessment and stated plan reflect my best clinical judgment today based on the combination of historical information, prior notes, and today's exam/ interactions. When time spent is documented, it refers only to time spent today by the signer, or if indicated, combined time spent today by collaborating physician/nurse practitioner. . (Daya Brewster) Collaborating MD Comments Chart reviewed. Case discussed with palliative care SECRETARIAL STENOGRAPHER. Above SECRETARIAL STENOGRAPHER note reviewed and I concur. . (Ethan Kapadia MD) Daya Brewster Jul 13, 2017 17:37 Ethan Kapadia MD Jul 26, 2017 14:39
--- NOTE | 2017-07-13 18:24 | RADRPT ---
EXAM DATE/TIME: 07/13/2017 17:54 [facility] COMPARISON: No previous studies available for comparison. INDICATIONS : Congestion. MEDICAL HISTORY : Cardiovascular disease. Stroke. SURGICAL HISTORY : CABG. ENCOUNTER: Subsequent ACUITY: 4 - 6 days PAIN SCORE: Non-responsive. LOCATION: Bilateral chest FINDINGS: Stable calcified granuloma right perihilar region. Previous CABG. Mild basilar densities probably ate lectasis. No effusion or pneumothorax. CONCLUSION: 1. Postop median sternotomy and CABG. Minimal basal atelectasis. Lowell Parrish MD on July 13, 2017 at 18:20 Board Certified Radiologist. This report was verified electronically.
[2017-07-13] MEDS: NIACIN 500 MG EXTENDED RELEASE TAB PO SCH (21:00)
[2017-07-13] MEDS: hydrOXYzine HCL 25 MG TAB PO SCH (21:00)
[2017-07-13] MEDS: ATORVASTATIN 40 MG TAB PO SCH (21:00)
[2017-07-13] MEDS: LEVOFLOXACIN 750 MG PREMIX INJ 150 ML IV SCH (23:27)
[2017-07-14] VITALS (7 sets, daily range): BP systolic 138–179; BP diastolic 64–90; PULSE 100–111; RESP 17–22; TEMP 97–97.9; O2SAT 91–99
[2017-07-14] MEDS: PIPERACIL-TAZO 4.5 GM PREMIX 100 ML IV SCH ×4 (03:06→22:24)
[2017-07-14] MEDS: VANCOMYCIN INJ 1,250 MG in SODIUM CHLOR 0.9% 250 ML INJ 250 ML IV SCH ×2 (03:48→22:24)
[2017-07-14] MEDS: SODIUM CHLORIDE 0.9% FLUSH 10 ML FLUSH IV FLUSH PRN (03:49)
[2017-07-14] MEDS: LORazepam 2 MG/ML VIAL IV PUSH PRN ×3 (03:49→20:51)
[2017-07-14] MEDS: LEVOTHYROXINE SODIUM 100 MCG TAB PO SCH (05:23)
[2017-07-14 06:41] LABS: AUTOMATED NEUTROPHIL # 11.3 TH/MM3 (1.8-7.7); BASOPHIL # 0.1 TH/MM3 (0-0.2); BASOPHIL % 0.6 % (0.0-2.0); EOSINOPHIL # 0.1 TH/MM3 (0-0.4); EOSINOPHIL % 0.9 % (0.0-4.0); HEMOGLOBIN 12.2 GM/DL (13.0-17.0); LYMPH % 6.9 % (9.0-44.0); LYMPHOCYTE # 0.9 TH/MM3 (1.0-4.8); MEAN CELL VOLUME 89.2 FL (80.0-100.0); MEAN CORPUSCULAR HEMOGLOBIN 29.3 PG (27.0-34.0); MEAN CORPUSCULAR HGB CONC 32.8 % (32.0-36.0); MEAN PLATELET VOLUME 7.6 FL (7.0-11.0); MONO % 6.8 % (0.0-8.0); MONOCYTE # 0.9 TH/MM3 (0-0.9); NEUT % 84.8 % (16.0-70.0); PLATELET COUNT 263 TH/MM3 (150-450); RED BLOOD COUNT 4.15 MIL/MM3 (4.50-5.90); RED CELL DISTRIBUTION WIDTH 13.4 % (11.6-17.2); WHITE BLOOD COUNT 13.3 TH/MM3 (4.0-11.0)
[2017-07-14] MEDS: ISOSORBIDE MONONITRATE 30 MG CR TAB (IMDUR) PO SCH (07:00)
[2017-07-14 07:19] LABS: ALBUMIN 2.7 GM/DL (3.4-5.0); ALKALINE PHOSPHATASE 99 U/L (45-117); ALT (GPT) 23 U/L (12-78); AST (GOT) 66 U/L (15-37); BICARBONATE 23.1 MEQ/L (21.0-32.0); BLOOD UREA NITROGEN 24 MG/DL (7-18); CALCIUM 8.5 MG/DL (8.5-10.1); CHLORIDE 116 MEQ/L (98-107); GLOMERULAR FILTRATION RATE 64 ML/MIN (>89); GLUCOSE,RANDOM 119 MG/DL (74-106); SODIUM (NA) 147 MEQ/L (136-145); TOTAL BILIRUBIN ADULT 0.9 MG/DL (0.2-1.0); TOTAL PROTEIN 7.2 GM/DL (6.4-8.2)
[2017-07-14] MEDS: INSULIN ASPART SUPPLEMENTAL SCALE SQ SCH ×4 (08:00→21:00)
[2017-07-14] MEDS: SODIUM CHLOR 0.9% 1000 ML INJ 1,000 ML IV SCH ×2 (08:03→18:31)
[2017-07-14] MEDS: SODIUM CHLORIDE 0.9% FLUSH 10 ML FLUSH IV FLUSH SCH ×2 (08:06→20:52)
[2017-07-14] MEDS: metFORMIN HCL 850 MG TAB PO SCH (09:00)
[2017-07-14] MEDS: RIVAROXABAN 20 MG TAB PO SCH (09:00)
[2017-07-14] MEDS: AMOXICILLIN/CLAVULANATE K 875 MG TAB PO SCH ×2 (09:00→20:56)
[2017-07-14] MEDS: QUEtiapine FUMARATE 25 MG TAB PO SCH (09:00)
[2017-07-14] MEDS: LACTOBACILLUS ACIDOPHILUS TAB PO SCH ×2 (09:00→20:57)
[2017-07-14] MEDS: PARoxetine HCL 20 MG TAB PO SCH (09:00)
[2017-07-14] MEDS: LORATADINE 10 MG TAB PO SCH (09:00)
[2017-07-14] MEDS: PANTOPRAZOLE SOD 40 MG DELAYED RELEASE TAB PO SCH (09:00)
[2017-07-14] MEDS: DILTIAZEM-CD 240 MG CAP ER PO SCH (09:00)
[2017-07-14] MEDS: LISINOPRIL 10 MG TAB PO SCH (09:00)
[2017-07-14] MEDS: METOPROLOL TARTRATE 25 MG TAB PO SCH ×2 (09:00→20:57)
[2017-07-14] MEDS: AZITHROMYCIN INJ 500 MG in SODIUM CHLOR 0.9% 250 ML INJ 250 ML IV SCH (10:35)
--- NOTE | 2017-07-14 11:43 | HHI.PR ---
Subjective Remarks Downward trend in white blood cell count and no further fevers after starting antibiotics for suspected aspiration pneumonia. Patient is more alert today compared to yesterday. He is still disoriented. He is still not able to tolerate his own secretions. Deep Suctioning is occurring about every hour. No respiratory distress. Patient is DO NOT RESUSCITATE status, no intubation, no chest compressions; so he will not be transferred to ICU at this time. Ativan is being provided to the patient's anxiety and aggression can be under control, though this is not helpful in regards to his swallowing function. Encephalopathy is present and contributory, possibility of improvement of encephalopathy over next 1-2 days. Family would like peripheral nutrition, this will be deferred for now given risks in the presence of infection and the possibility that in 1-2 days patient may improve at which time a repeat swallow evaluation will be performed. Objective Vital Signs Date Time Temp Pulse Resp B/P (MAP) Pulse Ox O2 Delivery O2 Flow Rate FiO2 07/14/17 08:00 97.0 105 22 141/88 (105) 95 07/14/17 00:00 97.0 102 18 148/64 (92) 94 07/13/17 21:10 94 Nasal Cannula 2.00 07/13/17 20:00 94 Nasal Cannula 2.00 07/13/17 20:00 98.7 96 20 163/75 (104) 95 07/13/17 18:00 98.7 98 20 145/83 (103) 98 07/13/17 12:00 97.8 144 24 128/60 (82) 94 I/O 07/13/17 07/13/17 07/13/17 07/14/17 07/14/17 07/14/17 07:00 15:00 23:00 07:00 15:00 23:00 Intake Total 100 ml 510 ml Balance 100 ml 510 ml Intake Oral 0 ml IV Total 100 ml 510 ml # Voids 3 3 # Bowel Movements 0 Result Diagram: 07/14/17 0545 07/14/17 0545 Objective Remarks GENERAL: NAD, A&Ox3 HEAD: Normocephalic. NECK: Supple, trachea midline. No lymphadenopathy. EYES: No scleral icterus. No injection or drainage. CARDIOVASCULAR: Regular rate and rhythm without murmurs, gallops, or rubs. RESPIRATORY: Breath sounds equal bilaterally. No accessory muscle use. GASTROINTESTINAL: Abdomen soft, non-tender, nondistended. MUSCULOSKELETAL: No cyanosis, or edema. SKIN: Warm and dry. NEURO: No focal neurological deficitis. A/P Problem List: (1) Dysphasia ICD Code: R47.02 - Dysphasia (2) CVA (cerebral vascular accident) ICD Code: I63.9 - Cerebral infarction, unspecified Status: Acute Assessment and Plan 82-year-old male admitted secondary to suspected CVA, with findings of encephalopathy and dysphagia, possible aspiration Failure to thrive Encephalopathy may be contributory Family's preference is for peripheral feeds which will be considered in 1-2 days given patient status of that time Fever Leukocytosis Suspected aspiration Fever resolved Leukocytosis improving Continue on vancomycin, Levaquin, and azithromycin Continue oxygen as needed Chest x-ray ordered Patient failed today swallow study Nothing by mouth for now Bilateral carotid stenosis Patient is not a candidate for endarterectomy Follow clinically Increased risk for stroke in the setting Encephalopathy, metabolic Visual hallucinations Psychosis May be related to sedatives Sedatives are being avoided Possible contribution from infection Antibiotics started as above Monitor for improvement Consider further imaging of brain if stroke become suspect Neurology following Continue Seroquel Elevated troponin Conservative therapy Current urology following Chronic A. 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
--- NOTE | 2017-07-14 12:08 | HHI.HCPN ---
Reason for visit a. To assist with evaluation and management of symptoms including: Confusion , agitation b. To assist medical decision maker(s) with: better understanding of current medical conditions; weighing benefits/burdens of medical treatment options; making medical treatment decisions. Subjective/Interval History Patient seen to follow-up on symptom management and goals of care. This is an elderly, confused man lying in bed mildly agitated, unrestrained, in mild distress. He is receiving antibiotics and fluid via IV. He is not combative at this time. He underwent speech evaluation this morning and turned his head away and said "no" to the speech therapist so no further therapy was given. He is n.p.o., family currently refusing feeding tube. Telemetry review shows he is in atrial fibrillation, rate reasonably well controlled today. He had previously been on Cardizem CD, however all oral medications are being held due to his n.p.o. status. Clinical course * Laboratory: WBC 13.3, hemoglobin 12.2, hematocrit 37.0, platelets 263, sodium 147, potassium 3.5, BUN 24, creatinine 1.10, random glucose 119. * Microbiology: Blood cultures negative 2 days. * Radiology: 07/14 chest x-ray shows mild atelectasis, otherwise no acute disease. Patient was previously on Xarelto for thromboembolic prophylaxis, however has been unable to take that secondary to his n.p.o. status. . Family/friend interactions Spoke with his daughter regarding patient's confusion, clinical status, lab results and speech therapy evaluation this morning. 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 She is requesting that a hard of hearing sign be placed above the patient's bed to warn all caregivers of his hearing status and for physical therapy to be resumed. . Advance Directives Living Will: Never completed Health Care Surrogate: Never completed Durable Power of Export Traffic Department Manager: Never completed Objective Vital Signs Date Time Temp Pulse Resp B/P (MAP) Pulse Ox O2 Delivery O2 Flow Rate FiO2 07/14/17 08:00 97.0 105 22 141/88 (105) 95 07/14/17 00:00 97.0 102 18 148/64 (92) 94 07/13/17 21:10 94 Nasal Cannula 2.00 07/13/17 20:00 94 Nasal Cannula 2.00 07/13/17 20:00 98.7 96 20 163/75 (104) 95 07/13/17 18:00 98.7 98 20 145/83 (103) 98 07/13/17 12:00 97.8 144 24 128/60 (82) 94 Intake & Output 07/14/17 07/14/17 06:59 18:59 Intake Total 610 ml Balance 610 ml IV Total 610 ml # Voids 3 # Bowel Movements 0 Physical Exam CONSTITUTIONAL/GENERAL: This is an adequately nourished patient, in mild distress, thrashing in bed. TUBES/LINES/DRAINS: PIV left forearm SKIN: No jaundice, rashes, or lesions. Ecchymoses on upper extremities. No wounds seen anteriorly. Skin temperature appropriate. Not diaphoretic. CARDIOVASCULAR: S1, S2, irregular rhythm, mildly tachycardic rate without rub murmur or gallop. Diminished peripheral pulses. RESPIRATORY/CHEST: Coarse breath sounds with scattered wheezes and rhonchi. GASTROINTESTINAL: Abdomen soft, non-tender, nondistended. No hepato-splenomegaly , or palpable masses. No guarding. Bowel sounds present. GENITOURINARY: Without palpable bladder distension. MUSCULOSKELETAL: Extremities without clubbing, cyanosis, or edema. Equal strength in all 4 extremities. NEUROLOGICAL: Awake, confused, agitated, not following commands. PSYCHIATRIC: Mildly agitated. . Diagnostic Tests Laboratory Laboratory Tests Test 07/12/17 15:45 07/14/17 05:45 White Blood Count 18.3 TH/MM3 (4.0-11.0) 13.3 TH/MM3 (4.0-11.0) Red Blood Count 4.77 MIL/MM3 (4.50-5.90) 4.15 MIL/MM3 (4.50-5.90) Hemoglobin 14.1 GM/DL (13.0-17.0) 12.2 GM/DL (13.0-17.0) Hematocrit 41.6 % (39.0-51.0) 37.0 % (39.0-51.0) Mean Corpuscular Volume 87.2 FL (80.0-100.0) 89.2 FL (80.0-100.0) Mean Corpuscular Hemoglobin 29.6 PG (27.0-34.0) 29.3 PG (27.0-34.0) Mean Corpuscular Hemoglobin Concent 34.0 % (32.0-36.0) 32.8 % (32.0-36.0) Red Cell Distribution Width 13.5 % (11.6-17.2) 13.4 % (11.6-17.2) Platelet Count 322 TH/MM3 (150-450) 263 TH/MM3 (150-450) Mean Platelet Volume 7.3 FL (7.0-11.0) 7.6 FL (7.0-11.0) Neutrophils (%) (Auto) 84.4 % (16.0-70.0) 84.8 % (16.0-70.0) Lymphocytes (%) (Auto) 4.4 % (9.0-44.0) 6.9 % (9.0-44.0) Monocytes (%) (Auto) 7.2 % (0.0-8.0) 6.8 % (0.0-8.0) Eosinophils (%) (Auto) 0.1 % (0.0-4.0) 0.9 % (0.0-4.0) Basophils (%) (Auto) 3.9 % (0.0-2.0) 0.6 % (0.0-2.0) Neutrophils # (Auto) 15.5 TH/MM3 (1.8-7.7) 11.3 TH/MM3 (1.8-7.7) Lymphocytes # (Auto) 0.8 TH/MM3 (1.0-4.8) 0.9 TH/MM3 (1.0-4.8) Monocytes # (Auto) 1.3 TH/MM3 (0-0.9) 0.9 TH/MM3 (0-0.9) Eosinophils # (Auto) 0.0 TH/MM3 (0-0.4) 0.1 TH/MM3 (0-0.4) Basophils # (Auto) 0.7 TH/MM3 (0-0.2) 0.1 TH/MM3 (0-0.2) CBC Comment DIFF FINAL DIFF FINAL Differential Comment Blood Urea Nitrogen 24 MG/DL (7-18) 24 MG/DL (7-18) Creatinine 1.00 MG/DL (0.60-1.30) 1.10 MG/DL (0.60-1.30) Random Glucose 167 MG/DL (74-106) 119 MG/DL (74-106) Calcium Level 9.4 MG/DL (8.5-10.1) 8.5 MG/DL (8.5-10.1) Sodium Level 140 MEQ/L (136-145) 147 MEQ/L (136-145) Potassium Level 3.7 MEQ/L (3.5-5.1) 3.5 MEQ/L (3.5-5.1) Chloride Level 106 MEQ/L (98-107) 116 MEQ/L (98-107) Carbon Dioxide Level 23.5 MEQ/L (21.0-32.0) 23.1 MEQ/L (21.0-32.0) Anion Gap 11 MEQ/L (5-15) 8 MEQ/L (5-15) Estimat Glomerular Filtration Rate 72 ML/MIN (>89) 64 ML/MIN (>89) Total Protein 7.2 GM/DL (6.4-8.2) Albumin 2.7 GM/DL (3.4-5.0) Alkaline Phosphatase 99 U/L (45-117) Aspartate Amino Transf (AST/SGOT) 66 U/L (15-37) Alanine Aminotransferase (ALT/SGPT) 23 U/L (12-78) Total Bilirubin 0.9 MG/DL (0.2-1.0) Result Diagram: 07/14/17 0545 07/14/17 0545 Microbiology Microbiology Date/Time Source Procedure Growth Status 07/12/17 15:48 Blood Peripheral Aerobic Blood Culture - Preliminary NO GROWTH IN 2 DAYS Resulted 07/12/17 15:48 Blood Peripheral Anaerobic Blood Culture - Preliminary NO GROWTH IN 2 DAYS Resulted 07/12/17 15:45 Blood Peripheral Aerobic Blood Culture - Preliminary NO GROWTH IN 2 DAYS Resulted 07/12/17 15:45 Blood Peripheral Anaerobic Blood Culture - Preliminary NO GROWTH IN 2 DAYS Resulted Imaging Last Impressions Chest X-Ray 07/13/17 0000 Signed Impressions: Service Date/Time: Thursday, July 13, 2017 17:54 - CONCLUSION: 1. Postop median sternotomy and CABG. Minimal basal atelectasis. Lowell Parrish MD Brain MRI 07/09/17 1048 Signed Impressions: Service Date/Time: June 12:28 - CONCLUSION: 1. Moderate periventricular and subcortical white matter small vessel ischemic changes bilaterally. 2. 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 3. No acute infarct, acute hemorrhage, midline shift or extra axial fluid collections. Simon Sahu MD Head CT 07/08/171917 Signed Impressions: Service Date/Time: Saturday, July 08, 2017 20:18 - CONCLUSION: 1. Possible subacute or old small left frontal lobe infarct. White matter ischemic changes. Remote lacunar infarct right cerebellum. Lowell Parrish MD Assessment and Plan Disease Oriented Problem List: (1) Paroxysmal atrial fibrillation (2) Cardiomyopathy (3) NSTEMI (non-ST elevated myocardial infarction) (4) DM (diabetes mellitus) (5) CAD (coronary artery disease) Symptom Scale: (1) Confusion 0-10 Scale: 10 (Oriented to self) (2) Agitation 0-10 Scale: 2 Pertinent Non-Medical Issues Psychosocial:He was born in [place], was from his of 57 years short time ago. 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 He has been living in [place] for the past 14 years, for the last year and a half with his daughter, since his . Spiritual: [employer]ism ye, would accept shortage worker visits. Legal: No legal issues noted. Ethical issues impacting care: No ethical issues noted. . Important Contacts Daughter: Audrey Cole . Prognosis His prognosis is guarded. He does have significant cardiac disease to include severe bilateral carotid stenosis, Coronary artery disease, atrial fibrillation , nonsustained ventricular tachycardia, chronic systolic heart failure with ejection fraction of 20-25% with an NSTEMI on admission. Given his new onset confusion, consideration of an embolic shower is in the differential. He is currently on Xarelto however is transitioning to Eliquis once the prescription has arrived from the mail-in pharmacy. He is at elevated risk for recurrent complications, recurrent hospitalizations and continued decline. . Code Status: No Code Plan PLAN: Legal decision maker: The patient is confused and not capacitated for decision-making. His daughter, Audrey, would be his proxy decision-maker per [place] statutes. Goals: Comfort oriented. CODE STATUS: DNR SYMPTOMS: * Confusion: This is a new onset with this admission. He was not previously confused but able to manage his own affairs and participate in decision-making. It is unknown at this time whether this will improve or worsen, has no certain cause has been found. MRI of the brain showed no stroke. Within the differential is aspiration pneumonia or delirium. This was acute onset on the day of admission. Earlier the day of admission the patient had been independent with ADLs and participating in family activities. Would recommend initiating Lovenox/SQ heparin, as he is in atrial fibrillation and his Xarelto is held due to his n.p.o. status. * Agitation: He is agitated, but now out of restraints. He had been receiving Seroquel 25 mg twice daily, however is now n.p.o. due to gross aspiration. He does respond well to Ativan and would recommend low-dose Ativan for agitation. * Fever: Afebrile since the initiation of antibiotics yesterday. Would recommend sputum culture with next NT suction. Palliative care will continue to follow the patient during hospital course as condition evolves, to assist patient/decision-maker with understanding of their medical conditions, weighing benefits/burdens of treatment options, for clarification of goals of treatment. Additionally will assist with any symptoms of palliative concern. . Time Spent >50% Counseling/Coord of Care: No Attestation To help prompt me to consider important information that might be impacting today's encounter and assessment, information from prior notes written by myself or my colleagues may have been "brought forward" into today's note. My signature on this note, however, is an attestation that I personally performed the exam, history, and/or decision-making noted today, and, unless otherwise indicated, the interactions with patient, family, and staff as well as the review of records all occurred today. I also attest that the listed assessment and stated plan reflect my best clinical judgment today based on the combination of historical information, prior notes, and today's exam/ interactions. When time spent is documented, it refers only to time spent today by the signer, or if indicated, combined time spent today by collaborating physician/nurse practitioner. . Daya Brewster Jul 14, 2017 12:08
[2017-07-14] MEDS: LEVOFLOXACIN 750 MG PREMIX INJ 150 ML IV SCH (20:51)
[2017-07-14] MEDS: hydrOXYzine HCL 25 MG TAB PO SCH (20:56)
[2017-07-14] MEDS: NIACIN 500 MG EXTENDED RELEASE TAB PO SCH (20:57)
[2017-07-14] MEDS: ATORVASTATIN 40 MG TAB PO SCH (20:57)
[2017-07-15] VITALS (8 sets, daily range): BP systolic 119–160; BP diastolic 66–91; PULSE 86–199; RESP 17–28; TEMP 96–98; O2SAT 92–96
[2017-07-15] MEDS: LORazepam 2 MG/ML VIAL IV PUSH PRN (02:49)
[2017-07-15] MEDS: PIPERACIL-TAZO 4.5 GM PREMIX 100 ML IV SCH ×2 (04:36→14:07)
[2017-07-15 05:36] LABS: AUTOMATED NEUTROPHIL # 11.9 TH/MM3 (1.8-7.7); BASOPHIL # 0.3 TH/MM3 (0-0.2); BASOPHIL % 2.4 % (0.0-2.0); EOSINOPHIL % 0.3 % (0.0-4.0); HEMATOCRIT 38.6 % (39.0-51.0); HEMOGLOBIN 12.5 GM/DL (13.0-17.0); LYMPH % 6.6 % (9.0-44.0); LYMPHOCYTE # 0.9 TH/MM3 (1.0-4.8); MEAN CELL VOLUME 89.3 FL (80.0-100.0); MEAN CORPUSCULAR HEMOGLOBIN 28.9 PG (27.0-34.0); MEAN CORPUSCULAR HGB CONC 32.3 % (32.0-36.0); MEAN PLATELET VOLUME 7.8 FL (7.0-11.0); MONO % 5.5 % (0.0-8.0); MONOCYTE # 0.8 TH/MM3 (0-0.9); NEUT % 85.2 % (16.0-70.0); PLATELET COUNT 282 TH/MM3 (150-450); RED BLOOD COUNT 4.32 MIL/MM3 (4.50-5.90); RED CELL DISTRIBUTION WIDTH 13.7 % (11.6-17.2); WHITE BLOOD COUNT 13.9 TH/MM3 (4.0-11.0)
[2017-07-15 05:46] LABS: CHLORIDE 118 MEQ/L (98-107); SODIUM (NA) 150 MEQ/L (136-145)
[2017-07-15 05:49] LABS: ALBUMIN 2.8 GM/DL (3.4-5.0); BICARBONATE 20.5 MEQ/L (21.0-32.0); CALCIUM 8.8 MG/DL (8.5-10.1); GLUCOSE,RANDOM 174 MG/DL (74-106)
[2017-07-15 05:50] LABS: BLOOD UREA NITROGEN 28 MG/DL (7-18)
[2017-07-15] MEDS: LEVOTHYROXINE SODIUM 100 MCG TAB PO SCH (06:00)
[2017-07-15] MEDS: ISOSORBIDE MONONITRATE 30 MG CR TAB (IMDUR) PO SCH (06:28)
[2017-07-15 07:25] LABS: ALKALINE PHOSPHATASE 95 U/L (45-117); ALT (GPT) 248 U/L (12-78); AST (GOT) 349 U/L (15-37); GLOMERULAR FILTRATION RATE 45 ML/MIN (>89); TOTAL BILIRUBIN ADULT 1.3 MG/DL (0.2-1.0); TOTAL PROTEIN 7.5 GM/DL (6.4-8.2)
[2017-07-15] MEDS: SODIUM CHLOR 0.45% 1000 ML INJ 1,000 ML IV SCH ×2 (07:50→22:01)
[2017-07-15] MEDS: INSULIN ASPART SUPPLEMENTAL SCALE SQ SCH ×4 (08:00→21:00)
[2017-07-15] MEDS: LACTOBACILLUS ACIDOPHILUS TAB PO SCH (08:32)
[2017-07-15] MEDS: metFORMIN HCL 850 MG TAB PO SCH (08:32)
[2017-07-15] MEDS: LORATADINE 10 MG TAB PO SCH (08:32)
[2017-07-15] MEDS: DILTIAZEM-CD 240 MG CAP ER PO SCH (08:32)
[2017-07-15] MEDS: SODIUM CHLORIDE 0.9% FLUSH 10 ML FLUSH IV FLUSH SCH ×2 (08:32→21:00)
[2017-07-15] MEDS: LISINOPRIL 10 MG TAB PO SCH (08:33)
[2017-07-15] MEDS: PANTOPRAZOLE SOD 40 MG DELAYED RELEASE TAB PO SCH (08:33)
[2017-07-15] MEDS: PARoxetine HCL 20 MG TAB PO SCH (08:33)
[2017-07-15] MEDS: RIVAROXABAN 20 MG TAB PO SCH (08:33)
[2017-07-15] MEDS: METOPROLOL TARTRATE 25 MG TAB PO SCH (08:33)
[2017-07-15] MEDS: AMOXICILLIN/CLAVULANATE K 875 MG TAB PO SCH (08:33)
[2017-07-15] MEDS: AZITHROMYCIN INJ 500 MG in SODIUM CHLOR 0.9% 250 ML INJ 250 ML IV SCH (11:57)
[2017-07-15] MEDS: VANCOMYCIN 1 GM/200 ML INJ 200 ML IV SCH (14:49)
[2017-07-15] MEDS ORDERED: VANCOMYCIN 1 GM/200 ML INJ 200 ML IV SCH (16:00)
--- NOTE | 2017-07-15 16:06 | HHI.HCPN ---
Reason for visit a. To assist with evaluation and management of symptoms including: Confusion , agitation b. To assist medical decision maker(s) with: better understanding of current medical conditions; weighing benefits/burdens of medical treatment options; making medical treatment decisions. Subjective/Interval History Patient seen to follow-up on symptom management and goals of care. Patient is still confused with gargling, raspy breath sounds this, weak cough, agitated requiring frequent suctioning. He continues to fail swallow evaluations and remains n.p.o. He does not make eye contact and does not respond to loud directions. Clinical data: * Laboratory WBC 13.9, hemoglobin 12.5, hematocrit 38.6, platelets 282, sodium 150, potassium 3.9, BUN 28, creatinine 1.50, total bilirubin 1.3, AST 349, ALT 248, random cortisol, drawn at 4:50 AM, 69.1, total testosterone is pending. . Family/friend interactions No family at bedside today. Advance Directives Living Will: Never completed Health Care Surrogate: Never completed Durable Power of Assembler Lay Ups: Never completed Objective Vital Signs Date Time Temp Pulse Resp B/P (MAP) Pulse Ox O2 Delivery O2 Flow Rate FiO2 07/15/17 12:00 98.0 199 28 119/66 (83) 07/15/17 08:00 97.8 86 28 122/91 (101) 94 07/15/17 07:43 92 Nasal Cannula 3.00 07/15/17 07:00 92 Nasal Cannula 3.00 07/15/17 00:00 96.4 108 17 132/68 (89) 95 07/14/17 23:14 94 Nasal Cannula 2.00 07/14/17 20:00 94 Nasal Cannula 2.00 07/14/17 20:00 97.0 111 17 179/90 (119) 91 07/14/17 16:00 97.9 100 22 140/80 (100) 99 Intake & Output 07/15/17 07/15/17 07:00 19:00 Intake Total 0 ml Balance 0 ml Intake Oral 0 ml # Voids 2 Physical Exam CONSTITUTIONAL/GENERAL: This is an adequately nourished patient, in mild distress, thrashing in bed. TUBES/LINES/DRAINS: PIV left forearm SKIN: No jaundice, rashes, or lesions. Ecchymoses on upper extremities. No wounds seen anteriorly. Skin temperature appropriate. Not diaphoretic. CARDIOVASCULAR: S1, S2, irregular rhythm, mildly tachycardic rate without rub murmur or gallop. Diminished peripheral pulses. RESPIRATORY/CHEST: Coarse breath sounds with scattered wheezes and rhonchi. GASTROINTESTINAL: Abdomen soft, non-tender, nondistended. No hepato-splenomegaly , or palpable masses. No guarding. Bowel sounds present. GENITOURINARY: Without palpable bladder distension. MUSCULOSKELETAL: Extremities without clubbing, cyanosis, or edema. Equal strength in all 4 extremities. NEUROLOGICAL: Awake, confused, agitated, not following commands. PSYCHIATRIC: Mildly agitated. . Diagnostic Tests Laboratory Laboratory Tests Test 07/14/17 05:45 07/15/17 04:50 07/15/17 15:30 White Blood Count 13.3 TH/MM3 (4.0-11.0) 13.9 TH/MM3 (4.0-11.0) Red Blood Count 4.15 MIL/MM3 (4.50-5.90) 4.32 MIL/MM3 (4.50-5.90) Hemoglobin 12.2 GM/DL (13.0-17.0) 12.5 GM/DL (13.0-17.0) Hematocrit 37.0 % (39.0-51.0) 38.6 % (39.0-51.0) Mean Corpuscular Volume 89.2 FL (80.0-100.0) 89.3 FL (80.0-100.0) Mean Corpuscular Hemoglobin 29.3 PG (27.0-34.0) 28.9 PG (27.0-34.0) Mean Corpuscular Hemoglobin Concent 32.8 % (32.0-36.0) 32.3 % (32.0-36.0) Red Cell Distribution Width 13.4 % (11.6-17.2) 13.7 % (11.6-17.2) Platelet Count 263 TH/MM3 (150-450) 282 TH/MM3 (150-450) Mean Platelet Volume 7.6 FL (7.0-11.0) 7.8 FL (7.0-11.0) Neutrophils (%) (Auto) 84.8 % (16.0-70.0) 85.2 % (16.0-70.0) Lymphocytes (%) (Auto) 6.9 % (9.0-44.0) 6.6 % (9.0-44.0) Monocytes (%) (Auto) 6.8 % (0.0-8.0) 5.5 % (0.0-8.0) Eosinophils (%) (Auto) 0.9 % (0.0-4.0) 0.3 % (0.0-4.0) Basophils (%) (Auto) 0.6 % (0.0-2.0) 2.4 % (0.0-2.0) Neutrophils # (Auto) 11.3 TH/MM3 (1.8-7.7) 11.9 TH/MM3 (1.8-7.7) Lymphocytes # (Auto) 0.9 TH/MM3 (1.0-4.8) 0.9 TH/MM3 (1.0-4.8) Monocytes # (Auto) 0.9 TH/MM3 (0-0.9) 0.8 TH/MM3 (0-0.9) Eosinophils # (Auto) 0.1 TH/MM3 (0-0.4) 0.0 TH/MM3 (0-0.4) Basophils # (Auto) 0.1 TH/MM3 (0-0.2) 0.3 TH/MM3 (0-0.2) CBC Comment DIFF FINAL DIFF FINAL Differential Comment Blood Urea Nitrogen 24 MG/DL (7-18) 28 MG/DL (7-18) Creatinine 1.10 MG/DL (0.60-1.30) 1.50 MG/DL (0.60-1.30) Random Glucose 119 MG/DL (74-106) 174 MG/DL (74-106) Total Protein 7.2 GM/DL (6.4-8.2) 7.5 GM/DL (6.4-8.2) Albumin 2.7 GM/DL (3.4-5.0) 2.8 GM/DL (3.4-5.0) Calcium Level 8.5 MG/DL (8.5-10.1) 8.8 MG/DL (8.5-10.1) Alkaline Phosphatase 99 U/L (45-117) 95 U/L (45-117) Aspartate Amino Transf (AST/SGOT) 66 U/L (15-37) 349 U/L (15-37) Alanine Aminotransferase (ALT/SGPT) 23 U/L (12-78) 248 U/L (12-78) Total Bilirubin 0.9 MG/DL (0.2-1.0) 1.3 MG/DL (0.2-1.0) Sodium Level 147 MEQ/L (136-145) 150 MEQ/L (136-145) 149 MEQ/L (136-145) Potassium Level 3.5 MEQ/L (3.5-5.1) 3.9 MEQ/L (3.5-5.1) Chloride Level 116 MEQ/L (98-107) 118 MEQ/L (98-107) Carbon Dioxide Level 23.1 MEQ/L (21.0-32.0) 20.5 MEQ/L (21.0-32.0) Anion Gap 8 MEQ/L (5-15) 12 MEQ/L (5-15) Estimat Glomerular Filtration Rate 64 ML/MIN (>89) 45 ML/MIN (>89) Ammonia LESS THAN 10 MCMOL/L Random Cortisol 69.1 MCG/DL Result Diagram: 07/15/17 0450 07/15/17 1530 Microbiology Microbiology Date/Time Source Procedure Growth Status 07/12/17 15:48 Blood Peripheral Aerobic Blood Culture - Preliminary NO GROWTH IN 3 DAYS Resulted 07/12/17 15:48 Blood Peripheral Anaerobic Blood Culture - Preliminary NO GROWTH IN 3 DAYS Resulted Imaging Last Impressions Chest X-Ray 07/13/17 0000 Signed Impressions: Service Date/Time: Thursday, July 13, 2017 17:54 - CONCLUSION: 1. Postop median sternotomy and CABG. Minimal basal atelectasis. Lowell Parrish MD Brain MRI 07/09/17 1048 Signed Impressions: Service Date/Time: June 12:28 - CONCLUSION: 1. Moderate periventricular and subcortical white matter small vessel ischemic changes bilaterally. 2. 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 3. No acute infarct, acute hemorrhage, midline shift or extra axial fluid collections. Simon Sahu MD Head CT 07/08/17 1918 Signed Impressions: Service Date/Time: Saturday, July 08, 2017 20:18 - CONCLUSION: 1. Possible subacute or old small left frontal lobe infarct. White matter ischemic changes. Remote lacunar infarct right cerebellum. Lowell Parrish MD Assessment and Plan Disease Oriented Problem List: (1) Paroxysmal atrial fibrillation (2) Cardiomyopathy (3) NSTEMI (non-ST elevated myocardial infarction) (4) DM (diabetes mellitus) (5) CAD (coronary artery disease) Symptom Scale: (1) Confusion 0-10 Scale: 10 (Oriented to self) (2) Agitation 0-10 Scale: 2 Pertinent Non-Medical Issues Psychosocial:He was born in [place], was from his of 57 years short time ago. 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 He has been living in [place] for the past 14 years, for the last year and a half with his daughter, since his . Spiritual: Gn[employer]ism ye, would accept cosmetologist visits. Legal: No legal issues noted. Ethical issues impacting care: No ethical issues noted. . Important Contacts Daughter: Audrey Cole . Prognosis His prognosis is guarded. He does have significant cardiac disease to include severe bilateral carotid stenosis, Coronary artery disease, atrial fibrillation , nonsustained ventricular tachycardia, chronic systolic heart failure with ejection fraction of 20-25% with an NSTEMI on admission. Given his new onset confusion, consideration of an embolic shower is in the differential. He is currently on Xarelto however is transitioning to Eliquis once the prescription has arrived from the mail-in pharmacy. He is at elevated risk for recurrent complications, recurrent hospitalizations and continued decline. . Code Status: No Code Plan PLAN: Legal decision maker: The patient is confused and not capacitated for decision-making. His daughter, Audrey, would be his proxy decision-maker per [place] statutes. Goals: Comfort oriented. CODE STATUS: DNR SYMPTOMS: * Confusion: This is a new onset with this admission. He was not previously confused but able to manage his own affairs and participate in decision-making. It is unknown at this time whether this will improve or worsen, has no certain cause has been found. MRI of the brain showed no stroke. Within the differential is aspiration pneumonia or delirium. This was acute onset on the day of admission. Earlier the day of admission the patient had been independent with ADLs and participating in family activities. Would recommend initiating Lovenox/SQ heparin, as he is in atrial fibrillation and his Xarelto is held due to his n.p.o. status. * Agitation: He is agitated, but now out of restraints. He had been receiving Seroquel 25 mg twice daily, however is now n.p.o. due to gross aspiration. He does respond well to Ativan but this has been held to allow for clearing of the mental status. He is becoming more agitated through the day per the RN and may need a low dose of Ativan for sleep. * Fever: Afebrile since the initiation of antibiotics yesterday. Would recommend sputum culture with next NT suction. Palliative care will continue to follow the patient during hospital course as condition evolves, to assist patient/decision-maker with understanding of their medical conditions, weighing benefits/burdens of treatment options, for clarification of goals of treatment. Additionally will assist with any symptoms of palliative concern. . Attestation To help prompt me to consider important information that might be impacting today's encounter and assessment, information from prior notes written by myself or my colleagues may have been "brought forward" into today's note. My signature on this note, however, is an attestation that I personally performed the exam, history, and/or decision-making noted today, and, unless otherwise indicated, the interactions with patient, family, and staff as well as the review of records all occurred today. I also attest that the listed assessment and stated plan reflect my best clinical judgment today based on the combination of historical information, prior notes, and today's exam/ interactions. When time spent is documented, it refers only to time spent today by the signer, or if indicated, combined time spent today by collaborating physician/nurse practitioner. . Daya Brewster Jul 15, 2017 16:06
--- NOTE | 2017-07-15 16:20 | HHI.PR ---
Subjective Remarks Patient remains lethargic today. He is unable to provide any history. No fevers. White blood cell count is downward trending. Objective Vital Signs Date Time Temp Pulse Resp B/P (MAP) Pulse Ox O2 Delivery O2 Flow Rate FiO2 07/15/17 12:00 98.0 199 28 119/66 (83) 07/15/17 08:00 97.8 86 28 122/91 (101) 94 07/15/17 07:43 92 Nasal Cannula 3.00 07/15/17 07:00 92 Nasal Cannula 3.00 07/15/17 00:00 96.4 108 17 132/68 (89) 95 07/14/17 23:14 94 Nasal Cannula 2.00 07/14/17 20:00 94 Nasal Cannula 2.00 07/14/17 20:00 97.0 111 17 179/90 (119) 91 I/O 07/14/17 07/14/17 07/14/17 07/15/17 07/15/17 07/15/17 07:00 15:00 23:00 07:00 15:00 23:00 Intake Total 510 ml 0 ml Balance 510 ml 0 ml Intake Oral 0 ml IV Total 510 ml # Voids 3 4 2 # Bowel Movements 0 Result Diagram: 07/15/17 0450 07/15/17 1530 Objective Remarks GENERAL: NAD, A&Ox0 HEAD: Normocephalic. NECK: Supple, trachea midline. No lymphadenopathy. EYES: No scleral icterus. No injection or drainage. CARDIOVASCULAR: Regular rate and rhythm without murmurs, gallops, or rubs. RESPIRATORY: Breath sounds equal bilaterally. No accessory muscle use. GASTROINTESTINAL: Abdomen soft, non-tender, nondistended. MUSCULOSKELETAL: No cyanosis, or edema. SKIN: Warm and dry. NEURO: No focal neurological deficitis. A/P Problem List: (1) Dysphasia ICD Code: R47.02 - Dysphasia (2) CVA (cerebral vascular accident) ICD Code: I63.9 - Cerebral infarction, unspecified Status: Acute Assessment and Plan 82-year-old male admitted secondary to suspected CVA, with findings of encephalopathy and dysphagia, possible aspiration Hold all sedatives including antipsychotics and benzodiazepines. Monitor for improvement in alertness or orientation. Continue suctioning. IV anticoagulation. Failure to thrive Encephalopathy may be contributory Family's preference is for peripheral feeds which will be considered in 1-2 days given patient status of that time Fever Leukocytosis Suspected aspiration Fever resolved Leukocytosis improving Continue on vancomycin, Levaquin, and azithromycin Continue oxygen as needed Chest x-ray ordered Patient failed today swallow study Nothing by mouth for now Bilateral carotid stenosis Patient is not a candidate for endarterectomy Follow clinically Increased risk for stroke in the setting Encephalopathy, metabolic Visual hallucinations Psychosis May be related to sedatives Sedatives are being avoided Possible contribution from infection Antibiotics started as above Monitor for improvement Consider further imaging of brain if stroke become suspect Neurology following Continue Seroquel Elevated troponin Conservative therapy Current urology following Chronic A. 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
[2017-07-15] MEDS: PIPERACIL-TAZO 2.25 GM PREMIX 50 ML IV SCH ×2 (17:21→22:01)
[2017-07-15] MEDS: HEPARIN SODIUM - SQ 10,000 UNITS/ML VIAL SQ SCH (17:21)
[2017-07-16] VITALS (7 sets, daily range): BP systolic 102–168; BP diastolic 80–89; PULSE 60–153; RESP 20–36; TEMP 96.1–98.6; O2SAT 91–96
[2017-07-16] MEDS: HEPARIN SODIUM - SQ 10,000 UNITS/ML VIAL SQ SCH ×2 (04:31→17:07)
[2017-07-16] MEDS: PIPERACIL-TAZO 2.25 GM PREMIX 50 ML IV SCH ×4 (04:32→23:07)
[2017-07-16 06:35] LABS: BASOPHIL # 0.7 TH/MM3 (0-0.2); BASOPHIL % 5.3 % (0.0-2.0); HEMATOCRIT 36.9 % (39.0-51.0); HEMOGLOBIN 12.3 GM/DL (13.0-17.0); LYMPH % 6.3 % (9.0-44.0); LYMPHOCYTE # 0.8 TH/MM3 (1.0-4.8); MEAN CELL VOLUME 88.6 FL (80.0-100.0); MEAN CORPUSCULAR HEMOGLOBIN 29.6 PG (27.0-34.0); MEAN CORPUSCULAR HGB CONC 33.5 % (32.0-36.0); MEAN PLATELET VOLUME 8.2 FL (7.0-11.0); MONO % 6.8 % (0.0-8.0); MONOCYTE # 0.8 TH/MM3 (0-0.9); NEUT % 81.6 % (16.0-70.0); PLATELET COUNT 224 TH/MM3 (150-450); RED BLOOD COUNT 4.16 MIL/MM3 (4.50-5.90); RED CELL DISTRIBUTION WIDTH 13.6 % (11.6-17.2); WHITE BLOOD COUNT 12.3 TH/MM3 (4.0-11.0)
[2017-07-16 06:39] LABS: CHLORIDE 120 MEQ/L (98-107); SODIUM (NA) 149 MEQ/L (136-145)
[2017-07-16 06:43] LABS: CALCIUM 8.4 MG/DL (8.5-10.1)
[2017-07-16 06:44] LABS: ALBUMIN 2.7 GM/DL (3.4-5.0); BICARBONATE 18.3 MEQ/L (21.0-32.0); BLOOD UREA NITROGEN 34 MG/DL (7-18); GLUCOSE,RANDOM 175 MG/DL (74-106); MAGNESIUM 1.9 MG/DL (1.5-2.5)
[2017-07-16 06:52] LABS: ALKALINE PHOSPHATASE 93 U/L (45-117); ALT (GPT) 828 U/L (12-78); GLOMERULAR FILTRATION RATE 53 ML/MIN (>89); TOTAL BILIRUBIN ADULT 1.2 MG/DL (0.2-1.0); TOTAL PROTEIN 6.8 GM/DL (6.4-8.2)
[2017-07-16 07:03] LABS: AST (GOT) 1164 U/L (15-37)
[2017-07-16 07:16] LABS: BANDS 2 % (0-6); LYMPHOCYTES 9 % (9-44); MONOCYTES 7 % (0-8); NEUTROPHIL # MANUAL DIFF 10.3 TH/MM3 (1.8-7.7); POLYS (SEG NEUTROPHILS) 82 % (16-70)
[2017-07-16] MEDS: INSULIN ASPART SUPPLEMENTAL SCALE SQ SCH ×4 (08:12→21:37)
[2017-07-16] MEDS: SODIUM CHLOR 0.45% 1000 ML INJ 1,000 ML IV SCH ×2 (08:12→13:00)
[2017-07-16 09:00] LABS: METHYLMALONIC ACID 0.18 nmol/mL (<=0.40)
[2017-07-16] MEDS ORDERED: RIVAROXABAN 15 MG TAB PO SCH (09:00)
[2017-07-16] MEDS ORDERED: PHARMACY ORDERED LAB ONE (09:45)
[2017-07-16] MEDS: SODIUM CHLORIDE 0.9% FLUSH 10 ML FLUSH IV FLUSH SCH ×2 (10:05→21:23)
[2017-07-16] MEDS: AZITHROMYCIN INJ 500 MG in SODIUM CHLOR 0.9% 250 ML INJ 250 ML IV SCH (10:10)
--- NOTE | 2017-07-16 10:51 | HHI.PR ---
Subjective Remarks Patient is awake today. He is able to follow instructions. He was able to stand with PT. This is a drastic improvement compared to the previous 3 days. LFTs are increased. Objective Vital Signs Date Time Temp Pulse Resp B/P (MAP) Pulse Ox O2 Delivery O2 Flow Rate FiO2 07/16/17 07:51 96.9 145 26 125/80 (95) 91 07/16/17 00:00 96.1 60 36 127/80 (96) 93 07/15/17 20:40 95 Nasal Cannula 3.00 07/15/17 20:00 96.0 103 20 160/82 (108) 96 07/15/17 16:00 97.0 122 24 120/70 (87) 94 07/15/17 12:05 133 07/15/17 12:00 98.0 199 28 119/66 (83) I/O 07/15/17 07/15/17 07/15/17 07/16/17 07/16/17 07/16/17 07:00 15:00 23:00 07:00 15:00 23:00 Intake Total 0 ml 1900 ml Output Total 0 ml Balance 0 ml 1900 ml Intake Oral 0 ml 0 ml IV Total 1900 ml Output Urine Total 0 ml # Voids 2 4 # Bowel Movements 0 Result Diagram: 07/16/17 0530 07/16/17 0530 Objective Remarks GENERAL: NAD, A&Ox0 HEAD: Normocephalic. NECK: Supple, trachea midline. No lymphadenopathy. EYES: No scleral icterus. No injection or drainage. CARDIOVASCULAR: Regular rate and rhythm without murmurs, gallops, or rubs. RESPIRATORY: Breath sounds equal bilaterally. No accessory muscle use. GASTROINTESTINAL: Abdomen soft, non-tender, nondistended. MUSCULOSKELETAL: No cyanosis, or edema. SKIN: Warm and dry. NEURO: No focal neurological deficitis. A/P Problem List: (1) Dysphasia ICD Code: R47.02 - Dysphasia (2) CVA (cerebral vascular accident) ICD Code: I63.9 - Cerebral infarction, unspecified Status: Acute Assessment and Plan 82-year-old male admitted secondary to suspected CVA, with findings of encephalopathy and dysphagia, possible aspiration Repeat swallow evaluation. Continue current physical therapy. Avoid all sedatives. Labs reviewed. LFTs are elevated. Continue to monitor labs. Labs ordered for further monitoring. Failure to thrive Improved Continued to avoid all sedatives and follow clinically Transaminitis May be reactive to previous antipsychotics Monitor for now and avoid antipsychotics Fever Leukocytosis Suspected aspiration Fever resolved Leukocytosis improving Continue on vancomycin, Levaquin, and azithromycin Continue oxygen as needed Chest x-ray ordered Patient failed today swallow study Nothing by mouth for now Bilateral carotid stenosis Patient is not a candidate for endarterectomy Follow clinically Increased risk for stroke in the setting Encephalopathy, metabolic Visual hallucinations Psychosis May be related to sedatives Sedatives are being avoided Possible contribution from infection Antibiotics started as above Monitor for improvement Consider further imaging of brain if stroke become suspect Neurology following Continue Seroquel Elevated troponin Conservative therapy Current urology following Chronic A. 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
[2017-07-16] MEDS ORDERED: Vancomycin Consult Pharmacy 1 EA OTHER SCH (11:00)
[2017-07-16] MEDS: VANCOMYCIN 1 GM/200 ML INJ 200 ML IV SCH (15:55)
--- NOTE | 2017-07-16 17:36 | PQ ---
Physician Query Response Document PATIENT: RICARDO STRANGE : 1935 ADMIT DATE: 07/09/2017 9:51 AM DISCH DATE: RESPONDING PROVIDER #: [email or web address] QUERY TEXT: CDS Clarification Systolic (congestive) heart failure present on admission with newly reduced LVEF 20-25% and global le ft ventricular dysfunction treated with Lisinopril Other explanation of clinical findings. Unable to determine (no explanation for clinical findings). The patient's Clinical Indicators include: The medical record reflects the following clinical findings, treatment, and risk factors. * Clinical Indicators: Prevoius echo LVEF 40%, newly reduced LVEF 20-25% with global LV dysfuntion, N ew AMI * Risk Factors New AMI, HTN,CAD * Treatment: Po Lisinopril, Echocardiogram, Cardiology consult Please clarify and document your clinical opinion in the progress notes and discharge summary includi ng the definitive and/or presumptive diagnosis (suspected or probable), related to the above clinical findings. Please include clinical findings supporting your diagnosis. Thank you, Aundrea Kenny: CDS/RN ext. [phone] Query created by: Aundrea Kenny on 07/10/2017 12:53 PM RESPONSE TEXT: Patient with elevated troponin consistent with poss CO, he also has a decreased in EF from baseline n ow EF at 20-30%. Likely systolic CHF in context of CO as patient with elevated troponin. Patient is m anaged conservatively Electronically signed by: Mary Ross MD 07/16/2017 5:33 PM
[2017-07-16] MEDS ORDERED: LEVOFLOXACIN 750 MG PREMIX INJ 150 ML IV SCH (20:00)
[2017-07-16] MEDS: RESP: IPRATROPIUM 0.5 MG/2.5 ML NEB NEB SCH (21:41)
[2017-07-17] VITALS (10 sets, daily range): BP systolic 120–182; BP diastolic 73–106; PULSE 108–160; RESP 22–32; TEMP 96.7–99.7; O2SAT 90–98
[2017-07-17] MEDS: RESP: IPRATROPIUM 0.5 MG/2.5 ML NEB NEB SCH ×4 (03:24→21:04)
[2017-07-17] MEDS: PIPERACIL-TAZO 2.25 GM PREMIX 50 ML IV SCH (03:44)
[2017-07-17] MEDS: HEPARIN SODIUM - SQ 10,000 UNITS/ML VIAL SQ SCH ×2 (05:33→17:10)
[2017-07-17 06:36] LABS: HEMATOCRIT 36.3 % (39.0-51.0); MEAN CELL VOLUME 88.5 FL (80.0-100.0); MEAN CORPUSCULAR HEMOGLOBIN 29.4 PG (27.0-34.0); MEAN CORPUSCULAR HGB CONC 33.2 % (32.0-36.0); MEAN PLATELET VOLUME 8.2 FL (7.0-11.0); PLATELET COUNT 202 TH/MM3 (150-450); RED CELL DISTRIBUTION WIDTH 13.7 % (11.6-17.2); WHITE BLOOD COUNT 11.8 TH/MM3 (4.0-11.0)
[2017-07-17 06:41] LABS: CHLORIDE 121 MEQ/L (98-107); SODIUM (NA) 152 MEQ/L (136-145)
[2017-07-17 06:51] LABS: ALBUMIN 2.7 GM/DL (3.4-5.0); BICARBONATE 19.7 MEQ/L (21.0-32.0); CALCIUM 8.3 MG/DL (8.5-10.1)
[2017-07-17 06:52] LABS: BLOOD UREA NITROGEN 41 MG/DL (7-18); GLUCOSE,RANDOM 167 MG/DL (74-106)
[2017-07-17 06:55] LABS: GLOMERULAR FILTRATION RATE 49 ML/MIN (>89)
[2017-07-17 06:56] LABS: TOTAL BILIRUBIN ADULT 1.4 MG/DL (0.2-1.0); TOTAL PROTEIN 6.9 GM/DL (6.4-8.2)
[2017-07-17 06:57] LABS: ALKALINE PHOSPHATASE 92 U/L (45-117)
[2017-07-17 07:02] LABS: ALT (GPT) 1221 U/L (12-78); AST (GOT) 1548 U/L (15-37)
[2017-07-17 07:57] LABS: BANDS 2 % (0-6); LYMPHOCYTES 12 % (9-44); MONOCYTES 9 % (0-8); NEUTROPHIL # MANUAL DIFF 9.3 TH/MM3 (1.8-7.7); POLYS (SEG NEUTROPHILS) 77 % (16-70)
[2017-07-17] MEDS: INSULIN ASPART SUPPLEMENTAL SCALE SQ SCH ×4 (08:42→21:00)
[2017-07-17] MEDS: SODIUM CHLORIDE 0.9% FLUSH 10 ML FLUSH IV FLUSH SCH ×2 (08:52→22:09)
[2017-07-17] MEDS: AZITHROMYCIN INJ 500 MG in SODIUM CHLOR 0.9% 250 ML INJ 250 ML IV SCH (09:15)
--- NOTE | 2017-07-17 10:13 | HHI.PR ---
Subjective Remarks More oriented today. Did not pass the swallow evaluation yesterday. Some of this may be due to the degree of dryness in the patient's mouth. 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 Objective Vital Signs Date Time Temp Pulse Resp B/P (MAP) Pulse Ox O2 Delivery O2 Flow Rate FiO2 07/17/17 08:37 94 Nasal Cannula 4.00 07/17/17 08:00 97.5 115 32 179/104 (129) 95 07/17/17 00:00 97.0 108 26 154/88 (110) 97 07/16/17 20:30 93 Nasal Cannula 4.00 07/16/17 20:00 98.2 106 36 168/89 (115) 93 07/16/17 16:00 98.6 108 32 120/80 (93) 96 07/16/17 12:01 94 Nasal Cannula 2.00 07/16/17 12:00 98.3 153 26 102/84 (90) 96 I/O 07/16/17 07/16/17 07/16/17 07/17/17 07/17/17 07/17/17 07:00 15:00 23:00 07:00 15:00 23:00 Intake Total 1900 ml 500 ml 772 ml 267 ml Output Total 0 ml Balance 1900 ml 500 ml 772 ml 267 ml Intake Oral 0 ml 0 ml IV Total 1900 ml 500 ml 772 ml 267 ml Output Urine Total 0 ml # Voids 4 2 4 # Bowel Movements 0 0 Result Diagram: 07/17/17 0545 07/17/17 0545 Objective Remarks GENERAL: NAD, A&Ox0 HEAD: Normocephalic. NECK: Supple, trachea midline. No lymphadenopathy. EYES: No scleral icterus. No injection or drainage. CARDIOVASCULAR: Regular rate and rhythm without murmurs, gallops, or rubs. RESPIRATORY: Breath sounds equal bilaterally. No accessory muscle use. GASTROINTESTINAL: Abdomen soft, non-tender, nondistended. MUSCULOSKELETAL: No cyanosis, or edema. SKIN: Warm and dry. NEURO: No focal neurological deficitis. A/P Problem List: (1) Dysphasia ICD Code: R47.02 - Dysphasia (2) CVA (cerebral vascular accident) ICD Code: I63.9 - Cerebral infarction, unspecified Status: Acute Assessment and Plan 82-year-old male admitted secondary to suspected CVA, with findings of encephalopathy and dysphagia, possible aspiration Ice chips and swabs to moisturize mouth. Follow for signs of aspiration. Dysphagia is not expected to improve as this was a pre-existing condition (he was eating with this condition anyhow). Consider PPN if advancement in PO intake not possible in 1-2 days. Failure to thrive Improved Continued to avoid all sedatives and follow clinically Transaminitis May be reactive to previous antipsychotics Monitor for now and avoid antipsychotics Fever Leukocytosis Suspected aspiration Fever resolved Leukocytosis improving Continue on vancomycin, Levaquin, and azithromycin Continue oxygen as needed Chest x-ray ordered Patient failed today swallow study Nothing by mouth for now Bilateral carotid stenosis Patient is not a candidate for endarterectomy Follow clinically Increased risk for stroke in the setting Encephalopathy, metabolic Visual hallucinations Psychosis May be related to sedatives Sedatives are being avoided Possible contribution from infection Antibiotics started as above Monitor for improvement Consider further imaging of brain if stroke become suspect Neurology following Continue Seroquel Elevated troponin Conservative therapy Current urology following Chronic A. 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
--- NOTE | 2017-07-17 13:47 | HHI.HCPN ---
Reason for visit a. To assist with evaluation and management of symptoms including: Confusion , agitation b. To assist medical decision maker(s) with: better understanding of current medical conditions; weighing benefits/burdens of medical treatment options; making medical treatment decisions. Subjective/Interval History Patient seen to follow-up on symptom management and goals of care. Patient remains confused, mildly agitated, oral mucosa dry. He remains n.p.o. for gross dysphasia. 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 This was previously not related to the staff and may help with his swallow evaluation. All antipsychotics have been stopped, patient is receiving no oral medications. Plan for trial of ice chips today, placed on the back of the tongue per the daughter's direction. Transaminases are increasing, however the patient denies any tenderness to abdominal palpation or nausea. Review of systems may be limited by confusion. Clinical data: * Laboratory: WBC 11.8, hemoglobin 12.0, hematocrit 36.3, platelets 202, sodium 152, potassium 3.8, BUN 41, creatinine 1.40, total bilirubin 1.4, AST 1548, yesterday 1164, ALT 1221 (828), total testosterone 99. Ammonia drawn 07/15 showed less than 10. . Family/friend interactions No family at bedside at this time. . Advance Directives Living Will: Never completed Health Care Surrogate: Never completed Durable Power of Bleach Boiler Filler: Never completed Objective Vital Signs Date Time Temp Pulse Resp B/P (MAP) Pulse Ox O2 Delivery O2 Flow Rate FiO2 07/17/17 12:00 99.4 112 32 167/102 (123) 94 07/17/17 08:37 94 Nasal Cannula 4.00 07/17/17 08:00 97.5 115 32 179/104 (129) 95 07/17/17 00:00 97.0 108 26 154/88 (110) 97 07/16/17 20:30 93 Nasal Cannula 4.00 07/16/17 20:00 98.2 106 36 168/89 (115) 93 07/16/17 16:00 98.6 108 32 120/80 (93) 96 Intake & Output 07/17/17 07/17/17 07:00 19:00 Intake Total 839 ml 125 ml Balance 839 ml 125 ml Intake Oral 0 ml IV Total 839 ml 125 ml # Voids 4 # Bowel Movements 0 Physical Exam CONSTITUTIONAL/GENERAL: This is an adequately nourished patient, in mild distress, thrashing in bed. TUBES/LINES/DRAINS: PIV left forearm SKIN: No jaundice, rashes, or lesions. Ecchymoses on upper extremities. No wounds seen anteriorly. Skin temperature appropriate. Not diaphoretic. CARDIOVASCULAR: S1, S2, irregular rhythm, mildly tachycardic rate without rub murmur or gallop. Diminished peripheral pulses. RESPIRATORY/CHEST: Coarse breath sounds with scattered wheezes and rhonchi. GASTROINTESTINAL: Abdomen soft, non-tender, nondistended. No hepato-splenomegaly , or palpable masses. No guarding. Bowel sounds present. GENITOURINARY: Without palpable bladder distension. MUSCULOSKELETAL: Extremities without clubbing, cyanosis, or edema. Equal strength in all 4 extremities. NEUROLOGICAL: Awake, confused, agitated, not following commands. PSYCHIATRIC: Mildly agitated. . Diagnostic Tests Laboratory Laboratory Tests Test 07/15/17 04:50 07/15/17 15:30 07/16/17 05:30 07/17/17 05:45 White Blood Count 13.9 TH/MM3 (4.0-11.0) 12.3 TH/MM3 (4.0-11.0) 11.8 TH/MM3 (4.0-11.0) Red Blood Count 4.32 MIL/MM3 (4.50-5.90) 4.16 MIL/MM3 (4.50-5.90) 4.10 MIL/MM3 (4.50-5.90) Hemoglobin 12.5 GM/DL (13.0-17.0) 12.3 GM/DL (13.0-17.0) 12.0 GM/DL (13.0-17.0) Hematocrit 38.6 % (39.0-51.0) 36.9 % (39.0-51.0) 36.3 % (39.0-51.0) Mean Corpuscular Volume 89.3 FL (80.0-100.0) 88.6 FL (80.0-100.0) 88.5 FL (80.0-100.0) Mean Corpuscular Hemoglobin 28.9 PG (27.0-34.0) 29.6 PG (27.0-34.0) 29.4 PG (27.0-34.0) Mean Corpuscular Hemoglobin Concent 32.3 % (32.0-36.0) 33.5 % (32.0-36.0) 33.2 % (32.0-36.0) Red Cell Distribution Width 13.7 % (11.6-17.2) 13.6 % (11.6-17.2) 13.7 % (11.6-17.2) Platelet Count 282 TH/MM3 (150-450) 224 TH/MM3 (150-450) 202 TH/MM3 (150-450) Mean Platelet Volume 7.8 FL (7.0-11.0) 8.2 FL (7.0-11.0) 8.2 FL (7.0-11.0) Neutrophils (%) (Auto) 85.2 % (16.0-70.0) 81.6 % (16.0-70.0) Lymphocytes (%) (Auto) 6.6 % (9.0-44.0) 6.3 % (9.0-44.0) Monocytes (%) (Auto) 5.5 % (0.0-8.0) 6.8 % (0.0-8.0) Eosinophils (%) (Auto) 0.3 % (0.0-4.0) 0.0 % (0.0-4.0) Basophils (%) (Auto) 2.4 % (0.0-2.0) 5.3 % (0.0-2.0) Neutrophils # (Auto) 11.9 TH/MM3 (1.8-7.7) 10.0 TH/MM3 (1.8-7.7) Lymphocytes # (Auto) 0.9 TH/MM3 (1.0-4.8) 0.8 TH/MM3 (1.0-4.8) Monocytes # (Auto) 0.8 TH/MM3 (0-0.9) 0.8 TH/MM3 (0-0.9) Eosinophils # (Auto) 0.0 TH/MM3 (0-0.4) 0.0 TH/MM3 (0-0.4) Basophils # (Auto) 0.3 TH/MM3 (0-0.2) 0.7 TH/MM3 (0-0.2) CBC Comment DIFF FINAL AUTO DIFF AUTO DIFF Differential Comment FINAL DIFF MANUAL FINAL DIFF MANUAL Blood Urea Nitrogen 28 MG/DL (7-18) 34 MG/DL (7-18) 41 MG/DL (7-18) Creatinine 1.50 MG/DL (0.60-1.30) 1.30 MG/DL (0.60-1.30) 1.40 MG/DL (0.60-1.30) Random Glucose 174 MG/DL (74-106) 175 MG/DL (74-106) 167 MG/DL (74-106) Total Protein 7.5 GM/DL (6.4-8.2) 6.8 GM/DL (6.4-8.2) 6.9 GM/DL (6.4-8.2) Albumin 2.8 GM/DL (3.4-5.0) 2.7 GM/DL (3.4-5.0) 2.7 GM/DL (3.4-5.0) Calcium Level 8.8 MG/DL (8.5-10.1) 8.4 MG/DL (8.5-10.1) 8.3 MG/DL (8.5-10.1) Alkaline Phosphatase 95 U/L (45-117) 93 U/L (45-117) 92 U/L (45-117) Aspartate Amino Transf (AST/SGOT) 349 U/L (15-37) 1164 U/L (15-37) Alanine Aminotransferase (ALT/SGPT) 248 U/L (12-78) 828 U/L (12-78) 1221 U/L (12-78) Total Bilirubin 1.3 MG/DL (0.2-1.0) 1.2 MG/DL (0.2-1.0) 1.4 MG/DL (0.2-1.0) Sodium Level 150 MEQ/L (136-145) 149 MEQ/L (136-145) 149 MEQ/L (136-145) 152 MEQ/L (136-145) Potassium Level 3.9 MEQ/L (3.5-5.1) 3.6 MEQ/L (3.5-5.1) 3.8 MEQ/L (3.5-5.1) Chloride Level 118 MEQ/L (98-107) 120 MEQ/L (98-107) 121 MEQ/L (98-107) Carbon Dioxide Level 20.5 MEQ/L (21.0-32.0) 18.3 MEQ/L (21.0-32.0) 19.7 MEQ/L (21.0-32.0) Anion Gap 12 MEQ/L (5-15) 11 MEQ/L (5-15) 11 MEQ/L (5-15) Estimat Glomerular Filtration Rate 45 ML/MIN (>89) 53 ML/MIN (>89) 49 ML/MIN (>89) Ammonia LESS THAN 10 MCMOL/L Total Testosterone 99 ng/dL (240-950) Random Cortisol 69.1 MCG/DL Differential Total Cells Counted 100 100 Neutrophils % (Manual) 82 % (16-70) 77 % (16-70) Band Neutrophils % 2 % (0-6) 2 % (0-6) Lymphocytes % 9 % (9-44) 12 % (9-44) Monocytes % 7 % (0-8) 9 % (0-8) Neutrophils # (Manual) 10.3 TH/MM3 (1.8-7.7) 9.3 TH/MM3 (1.8-7.7) Platelet Estimate NORMAL (NORMAL) NORMAL (NORMAL) Platelet Morphology Comment NORMAL (NORMAL) NORMAL (NORMAL) Magnesium Level 1.9 MG/DL (1.5-2.5) Result Diagram: 07/17/17 0545 07/17/17 0545 Microbiology Microbiology Date/Time Source Procedure Growth Status 07/12/17 15:48 Blood Peripheral Aerobic Blood Culture - Final NO GROWTH IN 5 DAYS Complete 07/12/17 15:48 Blood Peripheral Anaerobic Blood Culture - Final NO GROWTH IN 5 DAYS Complete Imaging Last Impressions Chest X-Ray 07/13/17 0000 Signed Impressions: Service Date/Time: Thursday, July 13, 2017 17:54 - CONCLUSION: 1. Postop median sternotomy and CABG. Minimal basal atelectasis. Lowell Parrish MD Brain MRI 07/09/17 1048 Signed Impressions: Service Date/Time: June 12:28 - CONCLUSION: 1. Moderate periventricular and subcortical white matter small vessel ischemic changes bilaterally. 2. 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 3. No acute infarct, acute hemorrhage, midline shift or extra axial fluid collections. Simon Sahu MD Head CT 07/08/171917 Signed Impressions: Service Date/Time: Saturday, July 08, 2017 20:18 - CONCLUSION: 1. Possible subacute or old small left frontal lobe infarct. White matter ischemic changes. Remote lacunar infarct right cerebellum. Lowell Parrish MD Assessment and Plan Disease Oriented Problem List: (1) Paroxysmal atrial fibrillation (2) Cardiomyopathy (3) NSTEMI (non-ST elevated myocardial infarction) (4) DM (diabetes mellitus) (5) CAD (coronary artery disease) Symptom Scale: (1) Confusion 0-10 Scale: 10 (Oriented to self) (2) Agitation 0-10 Scale: 2 Pertinent Non-Medical Issues Psychosocial:He was born in [place], was from his of 57 years short time ago. 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 He has been living in [place] for the past 14 years, for the last year and a half with his daughter, since his . Spiritual: Scientologist ye, would accept lease administrator visits. Legal: No legal issues noted. Ethical issues impacting care: No ethical issues noted. . Important Contacts Daughter: Audrey Cole . Prognosis His prognosis is guarded. He does have significant cardiac disease to include severe bilateral carotid stenosis, Coronary artery disease, atrial fibrillation , nonsustained ventricular tachycardia, chronic systolic heart failure with ejection fraction of 20-25% with an NSTEMI on admission. Given his new onset confusion, consideration of an embolic shower is in the differential. He is currently on Xarelto however is transitioning to Eliquis once the prescription has arrived from the mail-in pharmacy. He is at elevated risk for recurrent complications, recurrent hospitalizations and continued decline. . Code Status: No Code Plan PLAN: Legal decision maker: The patient is confused and not capacitated for decision-making. His daughter, Audrey, would be his proxy decision-maker per [place] statutes. Goals: Comfort oriented. CODE STATUS: DNR SYMPTOMS: * Confusion: This is a new onset with this admission. He was not previously confused but able to manage his own affairs and participate in decision-making. It is unknown at this time whether this will improve or worsen, has no certain cause has been found. MRI of the brain showed no stroke. Within the differential is aspiration pneumonia or delirium. This was acute onset on the day of admission. Earlier the day of admission the patient had been independent with ADLs and participating in family activities. * Agitation: He is agitated, but now out of restraints. He had been receiving Seroquel 25 mg twice daily, however is now n.p.o. due to gross aspiration. All sedating medications and antipsychotics have been held to allow for accurate assessment of his baseline mentation. He remains confused and mildly agitated. * Fever: Afebrile since the initiation of antibiotics. WBCs decreasing. Palliative care will continue to follow the patient during hospital course as condition evolves, to assist patient/decision-maker with understanding of their medical conditions, weighing benefits/burdens of treatment options, for clarification of goals of treatment. Additionally will assist with any symptoms of palliative concern. . Attestation To help prompt me to consider important information that might be impacting today's encounter and assessment, information from prior notes written by myself or my colleagues may have been "brought forward" into today's note. My signature on this note, however, is an attestation that I personally performed the exam, history, and/or decision-making noted today, and, unless otherwise indicated, the interactions with patient, family, and staff as well as the review of records all occurred today. I also attest that the listed assessment and stated plan reflect my best clinical judgment today based on the combination of historical information, prior notes, and today's exam/ interactions. When time spent is documented, it refers only to time spent today by the signer, or if indicated, combined time spent today by collaborating physician/nurse practitioner. . Daya Brewster Jul 17, 2017 13:47
[2017-07-17] MEDS ORDERED: PHARMACY ORDERED LAB ONE (15:45)
[2017-07-17] MEDS ORDERED: LORazepam 2 MG/ML VIAL IV PUSH ONE (21:30)
[2017-07-17] MEDS: SODIUM CHLOR 0.9% 1000 ML INJ 1,000 ML IV SCH (22:08)
[2017-07-17] MEDS ORDERED: METOPROLOL TARTRATE 5 MG/5 ML VIAL IV PUSH ONE ×2 (22:30→23:45)
[2017-07-17] MEDS: SODIUM CHLORIDE 0.9% FLUSH 10 ML FLUSH IV FLUSH PRN ×2 (23:01→23:59)
[2017-07-18] VITALS (7 sets, daily range): BP systolic 93–150; BP diastolic 80–100; PULSE 133–164; RESP 24–40; TEMP 97–99.7; O2SAT 95–99
[2017-07-18] MEDS ORDERED: DILTIAZEM HCL 60 MG TAB PO ONE (02:15)
[2017-07-18] MEDS: RESP: IPRATROPIUM 0.5 MG/2.5 ML NEB NEB SCH ×2 (03:21→09:17)
[2017-07-18] MEDS: HEPARIN SODIUM - SQ 10,000 UNITS/ML VIAL SQ SCH (05:04)
[2017-07-18 07:25] LABS: AUTOMATED NEUTROPHIL # 12.6 TH/MM3 (1.8-7.7); BASOPHIL # 0.1 TH/MM3 (0-0.2); HEMATOCRIT 37.3 % (39.0-51.0); HEMOGLOBIN 12.4 GM/DL (13.0-17.0); LYMPH % 6.5 % (9.0-44.0); LYMPHOCYTE # 0.9 TH/MM3 (1.0-4.8); MEAN CELL VOLUME 88.7 FL (80.0-100.0); MEAN CORPUSCULAR HEMOGLOBIN 29.4 PG (27.0-34.0); MEAN CORPUSCULAR HGB CONC 33.2 % (32.0-36.0); MEAN PLATELET VOLUME 8.3 FL (7.0-11.0); MONO % 6.3 % (0.0-8.0); MONOCYTE # 0.9 TH/MM3 (0-0.9); NEUT % 86.2 % (16.0-70.0); PLATELET COUNT 199 TH/MM3 (150-450); RED CELL DISTRIBUTION WIDTH 13.8 % (11.6-17.2); WHITE BLOOD COUNT 14.4 TH/MM3 (4.0-11.0)
[2017-07-18 07:35] LABS: CHLORIDE 125 MEQ/L (98-107); SODIUM (NA) 155 MEQ/L (136-145)
[2017-07-18 07:41] LABS: ALBUMIN 2.5 GM/DL (3.4-5.0); BICARBONATE 19.9 MEQ/L (21.0-32.0); BLOOD UREA NITROGEN 47 MG/DL (7-18); GLUCOSE,RANDOM 218 MG/DL (74-106)
[2017-07-18 07:44] LABS: AST (GOT) 922 U/L (15-37); GLOMERULAR FILTRATION RATE 42 ML/MIN (>89)
[2017-07-18 07:45] LABS: TOTAL BILIRUBIN ADULT 1.3 MG/DL (0.2-1.0); TOTAL PROTEIN 6.4 GM/DL (6.4-8.2)
[2017-07-18 07:46] LABS: ALKALINE PHOSPHATASE 93 U/L (45-117)
[2017-07-18 07:53] LABS: ALT (GPT) 1107 U/L (12-78)
[2017-07-18] MEDS: SODIUM CHLOR 0.9% 1000 ML INJ 1,000 ML IV SCH (07:55)
[2017-07-18] MEDS: INSULIN ASPART SUPPLEMENTAL SCALE SQ SCH ×2 (07:58→11:08)
[2017-07-18] MEDS: SODIUM CHLORIDE 0.9% FLUSH 10 ML FLUSH IV FLUSH SCH (07:58)
[2017-07-18] MEDS ORDERED: DILTIAZEM HCL 60 MG TAB PO SCH (12:00)
[2017-07-18] MEDS ORDERED: HYOSCYAMINE SOLN 0.125 MG/ML 15 ML BTL PO PRN (14:00)
[2017-07-18] MEDS ORDERED: LORazepam 2 MG/ML VIAL IV PUSH PRN (14:00)
[2017-07-18] MEDS ORDERED: MORPHINE SULFATE 4 MG/ML INJ IV PUSH PRN (14:00)
--- NOTE | 2017-07-18 15:28 | HHI.DS ---
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 (1) Respiratory failure ICD Code: J96.90 - Respiratory failure, unspecified, unspecified whether with hypoxia or hypercapnia (2) Transaminitis ICD Code: R74.0 - Nonspecific elevation of levels of transaminase and lactic acid dehydrogenase [LDH] (3) Renal failure ICD Code: N19 - Unspecified kidney failure (4) Diabetes Mellitus Status: Chronic (5) Hyperlipidemia associated with type 2 diabetes mellitus ICD Code: E11.69 - Hyperlipidemia associated with type 2 diabetes mellitus; E78.5 - Hyperlipidemia, unspecified Status: Chronic (6) Hypothyroidism ICD Code: E03.9 - Hypothyroidism Status: Chronic (7) Coronary arteriosclerosis Status: Chronic (8) Atrial fibrillation with RVR ICD Code: I48.91 - Unspecified atrial fibrillation Status: Acute (9) Carotid artery stenosis ICD Code: I65.29 - Carotid artery stenosis Status: Acute (10) TIA (transient ischemic attack) ICD Code: G45.9 - Transient cerebral ischemic attack, unspecified (11) Dehydration ICD Code: E86.0 - Dehydration Status: Acute (12) Depression ICD Code: F32.9 - Major depressive disorder, single episode, unspecified Status: Acute (13) Delirium ICD Code: R41.0 - Disorientation, unspecified (14) Unspecified psychosis ICD Code: F29 - Unspecified psychosis not due to a substance or known physiological condition (15) CVA (cerebral vascular accident) ICD Code: I63.9 - Cerebral infarction, unspecified Status: Acute (16) Acute [id number] myocardial infarction ICD Code: I21.4 - Non-ST elevation (NSTEMI) myocardial infarction Procedures ECHOCARDIOGRAM CONCLUSIONS The left ventricular systolic function is severely reduced with an estimated ejection fraction in the range of 20-25%. Moderately dilated left ventricle. Wall thickness is normal. There is global left ventricular dysfunction. Mitral annular calcification is present. Cannot rule out a bicuspid aortic valve or trileaflet valve with partially fused commissure. Diffuse calcification of the aortic valve. There is trace tricuspid valve regurgitation. Normal estimated pulmonary pressures. mild mr Brief History - From Admission 80-year-old male with past medical history significant for hypertension, hyperlipidemia, afib, and coronary artery disease status post CABG with quadruple bypass in 1996 who initially presented to [place] emergency department accompanied by his daughter with concerns of worsening altered mental status with behavioral changes. The patient's symptoms started last weekend, they noticed on Thursday the patient had one episode of urinary incontinence. They stated the patient's mental status started to fluctuate [employer] , he has been making more jokes than normal and appears to have visual hallucinations. He was telling his daughter that there was a boy that was hiding in a cabinet within the house, apparently he threatened to call the police if the boy did not leave. The patient does have a history of coronary artery disease, previous CABG, but no history of dementia. The patient is currently taking Xarelto for history of atrial fibrillation. They deny any visible trauma to the patient's head. The patient is asymptomatic and denies any current complaints. However, the daughter states that the patient has had a change in mental status today and is gettign progressively worse. The patient 's primary physician is Dr. Fan. The patient's life insurance agent is Dr. Das. The daughter also says that Dr Das had ordered US and CTA carotids recently. Patient has significant bilateral stenosis of the carotids. Also noted with elevated trops Dr Das consulted will eval patient Patient denies chest apin or sob. He is satting well on room air. No n/v/d/c. CBC/BMP: 07/18/17 0645 07/18/17 0645 Significant Findings Laboratory Tests Test 07/15/17 15:30 07/16/17 05:30 07/17/17 05:45 07/17/17 21:25 Sodium Level 149 MEQ/L (136-145) 149 MEQ/L (136-145) 152 MEQ/L (136-145) White Blood Count 12.3 TH/MM3 (4.0-11.0) 11.8 TH/MM3 (4.0-11.0) Red Blood Count 4.16 MIL/MM3 (4.50-5.90) 4.10 MIL/MM3 (4.50-5.90) Hemoglobin 12.3 GM/DL (13.0-17.0) 12.0 GM/DL (13.0-17.0) Hematocrit 36.9 % (39.0-51.0) 36.3 % (39.0-51.0) Neutrophils (%) (Auto) 81.6 % (16.0-70.0) Lymphocytes (%) (Auto) 6.3 % (9.0-44.0) Basophils (%) (Auto) 5.3 % (0.0-2.0) Neutrophils # (Auto) 10.0 TH/MM3 (1.8-7.7) Lymphocytes # (Auto) 0.8 TH/MM3 (1.0-4.8) Basophils # (Auto) 0.7 TH/MM3 (0-0.2) Neutrophils % (Manual) 82 % (16-70) 77 % (16-70) Neutrophils # (Manual) 10.3 TH/MM3 (1.8-7.7) 9.3 TH/MM3 (1.8-7.7) Blood Urea Nitrogen 34 MG/DL (7-18) 41 MG/DL (7-18) Random Glucose 175 MG/DL (74-106) 167 MG/DL (74-106) Albumin 2.7 GM/DL (3.4-5.0) 2.7 GM/DL (3.4-5.0) Calcium Level 8.4 MG/DL (8.5-10.1) 8.3 MG/DL (8.5-10.1) Aspartate Amino Transf (AST/SGOT) 1164 U/L (15-37) Alanine Aminotransferase (ALT/SGPT) 828 U/L (12-78) 1221 U/L (12-78) Total Bilirubin 1.2 MG/DL (0.2-1.0) 1.4 MG/DL (0.2-1.0) Chloride Level 120 MEQ/L (98-107) 121 MEQ/L (98-107) Carbon Dioxide Level 18.3 MEQ/L (21.0-32.0) 19.7 MEQ/L (21.0-32.0) Estimat Glomerular Filtration Rate 53 ML/MIN (>89) 49 ML/MIN (>89) Monocytes % 9 % (0-8) Creatinine 1.40 MG/DL (0.60-1.30) Blood Gas HCO3 19 mmol/L (22-26) Blood Gas Base Excess -5.7 mmol/L (-2-2) Arterial Blood Partial Pressure CO2 32 mmHG (38-42) Test 07/18/17 06:45 White Blood Count 14.4 TH/MM3 (4.0-11.0) Red Blood Count 4.20 MIL/MM3 (4.50-5.90) Hemoglobin 12.4 GM/DL (13.0-17.0) Hematocrit 37.3 % (39.0-51.0) Neutrophils (%) (Auto) 86.2 % (16.0-70.0) Lymphocytes (%) (Auto) 6.5 % (9.0-44.0) Neutrophils # (Auto) 12.6 TH/MM3 (1.8-7.7) Lymphocytes # (Auto) 0.9 TH/MM3 (1.0-4.8) Blood Urea Nitrogen 47 MG/DL (7-18) Creatinine 1.60 MG/DL (0.60-1.30) Random Glucose 218 MG/DL (74-106) Albumin 2.5 GM/DL (3.4-5.0) Calcium Level 8.0 MG/DL (8.5-10.1) Aspartate Amino Transf (AST/SGOT) 922 U/L (15-37) Alanine Aminotransferase (ALT/SGPT) 1107 U/L (12-78) Total Bilirubin 1.3 MG/DL (0.2-1.0) Sodium Level 155 MEQ/L (136-145) Chloride Level 125 MEQ/L (98-107) Carbon Dioxide Level 19.9 MEQ/L (21.0-32.0) Estimat Glomerular Filtration Rate 42 ML/MIN (>89) Imaging Last Impressions Chest X-Ray 07/13/17 0000 Signed Impressions: Service Date/Time: Thursday, July 13, 2017 17:54 - CONCLUSION: 1. Postop median sternotomy and CABG. Minimal basal atelectasis. Lowell Parrish MD Brain MRI 07/09/17 1048 Signed Impressions: Service Date/Time: June 12:28 - CONCLUSION: 1. Moderate periventricular and subcortical white matter small vessel ischemic changes bilaterally. 2. 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 3. No acute infarct, acute hemorrhage, midline shift or extra axial fluid collections. Simon Sahu MD Head CT 07/08/171917 Signed Impressions: Service Date/Time: Saturday, July 08, 2017 20:18 - CONCLUSION: 1. Possible subacute or old small left frontal lobe infarct. White matter ischemic changes. Remote lacunar infarct right cerebellum. Lowell Parrish MD PE at Discharge GENERAL: This is a well-nourished, well-developed patient, in no apparent distress. Pleasantly confused. CARDIOVASCULAR: Regular rate and rhythm without murmurs, gallops, or rubs. RESPIRATORY: Clear to auscultation. Breath sounds equal bilaterally. No wheezes , rales, or rhonchi. GASTROINTESTINAL: Abdomen soft, non-tender, nondistended. No hepato-splenomegaly , or palpable masses. No guarding. MUSCULOSKELETAL: Extremities without clubbing, cyanosis, or edema. No joint tenderness, effusion, or edema noted. No calf tenderness. Negative Homans sign bilaterally. NEUROLOGICAL: Awake and alert. Cranial nerves II through XII intact. Motor and sensory grossly within normal limits. Five out of 5 muscle strength in all muscle groups. Normal speech. 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 Patient has been having altered mentation with visual hallucinations, possible delirium. Patient had a workup originally done emergency department with CT scan which did indicate possible subacute stroke. Patient was recommended admission to the hospital for further evaluation and management. Patient underwent rather significant and extensive workup with a plethora of consultations with multiple specialties to include cardiology, vascular surgery, neurology consults, psychiatry consult and palliative care consult, patient did have a rather extensive myocardial infarction on day of admission with troponins from 0.77 up to 3.66. Cardiology consultation was requested and indicated that his was difficult to determine if this was a primary or secondary myocardial infarction but is indicated that the family has CODE STATUS to DO NOT RESUSCITATE. And continued with conservative measures. With continuing anticoagulation, low-dose beta-yen. The patient is not a revascularization candidate at this time. Patient did undergo echocardiogram which did indicate severe cardiomyopathy with ejection fraction 20-25%. Did indicate global left ventricular dysfunction. Patient did undergo full neurological workup with 2 different neurologist. MRI did not indicate any acute stroke or subacute stroke. EEG did show encephalopathy without any epileptiform activity. As indicated multiple etiologies of the patient's altered mentation due to sedation, sleep cycle abnormalities. Recommendations were made. Due to the patient's continued delirium and altered mentation psychiatry was consulted who indicated that is not a primary psychological issue that is secondary to delirium and recommended Seroquel for treatment. Patient's condition did not improve. Medication was given for sleep cycle adjustment as well as control of delirium. However it was indicated that this could possibly worsening his mentation. Sedation and sedative medication was held with only minimal response to his cognition. Vascular surgery was consulted for carotid stenosis. And as indicated that patient is not a candidate for surgical intervention at this time. Patient was unable to tolerate anything by mouth. Speech therapy followed the patient during his time in the hospital continue to recommend nothing by mouth due to severe oropharyngeal dysphagia and recommended possible bypass feeding. It was indicated that patient may be started on PPN or TPN in a couple days if his mentation improved. Palliative care was following the patient and presently the family was still anticipating a positive outcome or improvement. However patient did not improve. Patient developed worsening conditions with leukocytosis, possible infectious process. Patient was started on IV antibiotics for management., No infectious source was identified. Overnight the patient decompensated with H fibrillation with RVR. Patient's heart rate was not responsive to Lopressor IV. An NG tube was placed with the administration of Cardizem p.o. with minimal control of his heart rate. Laboratory studies indicating worsening leukocytosis, worsening renal function, worsening hypernatremia, worsening liver enzymes. Due to the patient's worsening overall clinical picture I discussed with family about potential/ aggressive treatment or comfort measures and they are in agreement at this time with hospice consult. I did consult hospice and discussed with them personally of patient's medical condition and they evaluated the patient as well as discussed with family. Family is accepting hospice care and patient will be transferred to the hospice care facility once arrangements made. Pt Condition on Discharge: Stable Discharge Disposition: Hospice/Med Facility Discharge Time: > 30 minutes Discharge Instructions DIET: Follow Instructions for: Heart Healthy Diet, Nothing By Mouth Activities you can perform: Regular-No Restrictions, Continue Bedrest Follow up Referrals: Cardiology - 2 Weeks Neurology - 2 Weeks PCP Follow-up - 2-3 Days Discontinued Medications: Atorvastatin (Atorvastatin) 80 Mg Tab 1 MG PO HS, #90 TAB 4 Refills Diltiazem CD 24 HR (Diltiazem CD 24 HR) 240 Mg Caper 240 MG PO DAILY, #90 CAP 4 Refills Hydroxyzine HCl (Hydroxyzine HCl) 25 Mg Tab 25 MG PO HS, #90 TAB 0 Refills Isosorbide Mononitrate ER (Isosorbide Mononitrate ER) 30 Mg Benja 30 MG PO DAILY for Prevent Chest Pain, #30 TAB 0 Refills Levothyroxine (Levothyroxine) 100 Mcg Tab 100 MCG PO DAILY for Thyroid, #90 TAB 4 Refills Lisinopril (Lisinopril) 10 Mg Tab 10 MG PO DAILY, #90 TAB 4 Refills Loratadine (Allergy) 10 Mg Tab 10 MG PO DAILY Metformin (Metformin) 850 Mg Tab 850 MG PO DAILY for Blood Sugar Management, #90 TAB 4 Refills With a meal Niacin ER (Niaspan) 500 Mg Tab 1500 MG PO HS for Cholesterol Management, #90 TAB 4 Refills Nitroglycerin SL (Nitrostat SL) 0.4 Mg Subl 0.4 MG SL DIRECTED PRN for CHEST PAIN, #100 TAB.SL 3 Refills Omeprazole (Omeprazole) 40 Mg Cap 40 MG PO DAILY, #90 CAP 4 Refills Paroxetine (Paxil) 10 Mg Tab 10 MG PO DAILY, #90 TAB 2 Refills Rivaroxaban (Xarelto) 20 Mg Tab 1 MG PO DAILY, #90 TAB 0 Refills Tramadol (Tramadol) 50 Mg Tab 50 MG PO Q4H PRN for PAIN, #120 TAB 0 Refills Mir Andrade Jul 18, 2017 15:28
== END 2017-07-18 17:35 | disposition hospice, inpatient (51) | DRG 64 ==
LOC: PHED 17:47 → PHEDA 21:34 → PH3B 23:50 → OBSVTOIN 07-09 09:51
PROVIDERS: ADMIT Hospitalist; ATTEND Hospitalist
DX: I63.9 Cerebral infarction, unspecified (principal); J96.90 Respiratory failure, unspecified, unspecified whether with hypoxia or hypercapnia; I21.4 Non-ST elevation (NSTEMI) myocardial infarction; G93.41 Metabolic encephalopathy; I47.2 Ventricular tachycardia; E87.0 Hyperosmolality and hypernatremia; I48.0 Paroxysmal atrial fibrillation; E86.0 Dehydration; I50.22 Chronic systolic (congestive) heart failure; R13.10 Dysphagia, unspecified; I13.0 Hypertensive heart and chronic kidney disease with heart failure and stage 1 through stage 4 chronic kidney disease, or unspecified chronic kidney disease; E11.22 Type 2 diabetes mellitus with diabetic chronic kidney disease; F32.9 Major depressive disorder, single episode, unspecified; I48.2 Chronic atrial fibrillation; E03.9 Hypothyroidism, unspecified; E78.5 Hyperlipidemia, unspecified; D72.829 Elevated white blood cell count, unspecified; R74.0 Nonspecific elevation of levels of transaminase and lactic acid dehydrogenase [LDH]; N18.9 Chronic kidney disease, unspecified; I25.10 Atherosclerotic heart disease of native coronary artery without angina pectoris; R50.9 Fever, unspecified; Z79.899 Other long term (current) drug therapy; Z79.84 Long term (current) use of oral hypoglycemic drugs; Z79.01 Long term (current) use of anticoagulants; Z95.1 Presence of aortocoronary bypass graft; Z66 Do not resuscitate; Z92.21 Personal history of antineoplastic chemotherapy; Z92.3 Personal history of irradiation; Z86.73 Personal history of transient ischemic attack (TIA), and cerebral infarction without residual deficits; Z85.21 Personal history of malignant neoplasm of larynx; Z51.5 Encounter for palliative care; R62.7 Adult failure to thrive; Z68.25 Body mass index [BMI] 25.0-25.9, adult; E78.00 Pure hypercholesterolemia, unspecified; F17.200 Nicotine dependence, unspecified, uncomplicated; F29 Unspecified psychosis not due to a substance or known physiological condition; H91.8X3 Other specified hearing loss, bilateral; J38.00 Paralysis of vocal cords and larynx, unspecified; R47.02 Dysphasia; K21.9 Gastro-esophageal reflux disease without esophagitis; I25.2 Old myocardial infarction; I25.5 Ischemic cardiomyopathy; R32 Unspecified urinary incontinence; I65.23 Occlusion and stenosis of bilateral carotid arteries; E11.51 Type 2 diabetes mellitus with diabetic peripheral angiopathy without gangrene; Z72.820 Sleep deprivation
CPT/HCPCS: 36600; 70450; 70551; 71045; 80048; 80053; 80061; 81001; 82140; 82533; 82550; 82607; 82805; 82948; 83036; 83735; 83921; 84295; 84403; 84425; 84439; 84443; 84484; 85007; 85025; 85027; 85652; 86038; 86140; 86592; 87040; 93005; 93306; 94640; 94664; 95819; 99285; G0378; G8987-GP; G8988-GP; J0131; J0456; J1644; J1815; J1956; J2060; J2270; J2543; J3370; J7030; J7050; J7644